=== PATIENT | male | born 1930 | race Caucasian/White ===

== ENCOUNTER 2017-05-02 08:10 | Inpatient (IN) | payer MEDICARE, BC ==
[~2017-05-02] VITALS: Ht 167.6 cm; Wt 64.1 kg
[2017-05-02] VITALS (19 sets, daily range): BP systolic 125–191; BP diastolic 62–91; PULSE 62–137; RESP 10–43; TEMP 96.6–99.3; O2SAT 74–100
[~2017-05-02 08:10] MED LIST: ALPR-138 PO; AVOD0.5C PO; BACL10TA PO; SULF1TAB47 PO; TAMS0.4C67 PO; ZYRT10TA12 PO
[2017-05-02] MEDS ORDERED: SODIUM CHLORIDE 0.9% FLUSH 10 ML FLUSH IVF PRN (08:30)
[2017-05-02] MEDS ORDERED: NALOXONE HCL 0.4 MG/ML AMP IV PUSH ONE ×2 (08:30→09:15)
--- NOTE | 2017-05-02 08:31 | PD ---
HPI Chief Complaint: OD/ Ingestion Time Seen by Provider: 08:23 Travel History International Travel<30 days: No Contact w/Intl Traveler<30days: No Traveled to known affect area: No History of Present Illness HPI 86 y/o male presents by ambulance after an overdose ingestion. He was found with a suicide note and is under Christianson act by police. He received 0.8 of Narcan by the ambulance team and now is drowsy but awakens to voice. He states he took about 20 pills but cannot tell me what pills and why he took them. History is significantly limited by patient. PFSH Past Medical History Narrative Medical on review of records Arthritis: No Asthma: No Autoimmune Disease: Yes (polymyalgiarheumatia) Blood Disorders: No Anxiety: No Depression: No Heart Rhythm Problems: No Cancer: No Cardiovascular Problems: No High Cholesterol: No Chemotherapy: No Chest Pain: No Congestive Heart Failure: No COPD: No Cerebrovascular Accident: No Diverticulitis: Yes Endocrine: No Gastrointestinal Disorders: Yes (diverticulitis 07/16 with rupture leading to rectal bleeding) GERD: Yes Glaucoma: No Genitourinary: Yes (enlarged prostate) Headaches: No Hepatitis: No Hiatal Hernia: Yes Hypertension: No Immune Disorder: No Kidney Stones: No Musculoskeletal: No Neurologic: No Psychiatric: No Reproductive: No Respiratory: No Migraines: No Myocardial Infarction: No Radiation Therapy: No Renal Failure: No Seizures: No Sickle Cell Disease: No Sleep Apnea: Yes (sleeps on side as treatment) Ulcer: No Past Surgical History Narrative Surgical on review of records Abdominal Surgery: Yes (HERNIA REPAIR) AICD: No Appendectomy: Yes (1967) Arteriovenous Shunt: No Cardiac Surgery: No Cholecystectomy: No Ear Surgery: No Endocrine Surgery: No Eye Surgery: No Genitourinary Surgery: No Insulin Pump: No Joint Replacement: Yes (left knee) Oral Surgery: No Pacemaker: No Thoracic Surgery: No Tonsillectomy: Yes Other Surgery: Yes (1995--BILATERAL HERNIA) Social History Narrative Social History on review of records Alcohol Use: Yes (one drink (wine or [place]) a day) Tobacco Use: No Substance Use: No Allergies-Medications (Allergen,Severity, Reaction): Coded Allergies: povidone-iodine (Unverified Adverse Reaction, Mild, BURNING SENSATION ON SKIN, 09/24/16) Reported Meds & Prescriptions Reported Meds & Active Scripts Active Bactrim Ds (Trimethoprim/Sulfamethoxazole) 800 Mg-160 Mg Tab 1 Tab PO BID Reported Xanax (Alprazolam) 0.25 Mg Tab 0.25 Mg PO HS Lioresal (Baclofen) 10 Mg Tab 0 PO Zyrtec (Cetirizine HCl) 10 Mg Tab 10 Mg PO DAILYPRN Flomax (Tamsulosin HCl) 0.4 Mg Cap 0.4 Mg PO DAILY Avodart (Dutasteride) 0.5 Mg Cap 0.5 Mg PO DAILY Review of Systems Except as stated in HPI: all other systems reviewed are Neg Physical Exam Narrative GENERAL: 86 y/o male who is drowsy SKIN: Focused skin assessment warm/dry. HEAD: Atraumatic. Normocephalic. EYES: pinpoint pupils. No scleral icterus. No injection or drainage. ENT: No nasal bleeding or discharge. Mucous membranes pink and moist. NECK: Trachea midline. CARDIOVASCULAR: Regular rate and rhythm. RESPIRATORY: No accessory muscle use. Clear to auscultation. Breath sounds equal bilaterally. GASTROINTESTINAL: Abdomen soft, nondistended. MUSCULOSKELETAL: No obvious deformities. NEUROLOGICAL: Drowsy but opens eyes to voice, states name, moves extremities, slow speech Data Data Last Documented VS Vital Signs Date Time Temp Pulse Resp B/P (MAP) Pulse Ox O2 Delivery O2 Flow Rate FiO2 05/02/17 09:15 65 20 149/62 (91) 100 Room Air 2.00 Orders Orders Electrocardiogram (05/02/17 08:23) Complete Blood Count With Diff (05/02/17 08:23) Comprehensive Metabolic Panel (05/02/17 08:23) Prothrombin Time / Inr (Pt) (05/02/17 08:23) Act Partial Throm Time (Ptt) (05/02/17 08:23) Urinalysis - C+S If Indicated (05/02/17 08:23) Chest, Single Ap (05/02/17 08:23) Iv Access Insert/Monitor (05/02/17 08:23) Ecg Monitoring (05/02/17 08:23) Oximetry (05/02/17 08:23) Naloxone Inj (Narcan Inj) (05/02/17 08:30) Sodium Chloride 0.9% Flush (Ns Flush) (05/02/17 08:30) Call Poison Control (05/02/17 08:23) Drug Screen, Random Urine (05/02/17 08:23) Alcohol (Ethanol) (05/02/17 08:23) Salicylates (Aspirin) (05/02/17 08:23) Tylenol (Acetaminophen) (05/02/17 08:23) Acetylcysteine Inj (Acetadote Inj) (05/02/17 08:45) Acetylcysteine Inj (Acetadote Inj) (05/02/17 09:45) Naloxone Inj (Narcan Inj) (05/02/17 08:45) Naloxone Inj (Narcan Inj) (05/02/17 09:00) Naloxone Inj (Narcan Inj) (05/02/17 09:00) Naloxone Inj (Narcan Inj) (05/02/17 09:15) Blood Culture (05/02/17 09:41) Ceftriaxone Inj (Rocephin Inj) (05/02/17 09:45) Azithromycin Inj (Zithromax Inj) (05/02/17 09:45) Metronidazole 500 Mg Inj (Flagyl 500 Mg (05/02/17 09:45) Urine Culture (05/02/17 08:31) Admit Order (Ed Use Only) (05/02/17 10:03) ^ Sitter (05/02/17 10:03) Labs Laboratory Tests Test 05/02/17 08:30 05/02/17 08:31 White Blood Count 7.8 TH/MM3 Red Blood Count 4.68 MIL/MM3 Hemoglobin 14.3 GM/DL Hematocrit 42.6 % Mean Corpuscular Volume 91.0 FL Mean Corpuscular Hemoglobin 30.5 PG Mean Corpuscular Hemoglobin Concent 33.5 % Red Cell Distribution Width 13.1 % Platelet Count 325 TH/MM3 Mean Platelet Volume 7.0 FL Neutrophils (%) (Auto) 58.8 % Lymphocytes (%) (Auto) 22.8 % Monocytes (%) (Auto) 12.7 % Eosinophils (%) (Auto) 4.8 % Basophils (%) (Auto) 0.9 % Neutrophils # (Auto) 4.6 TH/MM3 Lymphocytes # (Auto) 1.8 TH/MM3 Monocytes # (Auto) 1.0 TH/MM3 Eosinophils # (Auto) 0.4 TH/MM3 Basophils # (Auto) 0.1 TH/MM3 CBC Comment DIFF FINAL Differential Comment Prothrombin Time 11.9 SEC Prothromb Time International Ratio 1.2 RATIO Activated Partial Thromboplast Time 27.4 SEC Blood Urea Nitrogen 19 MG/DL Creatinine 1.30 MG/DL Random Glucose 82 MG/DL Total Protein 6.7 GM/DL Albumin 2.9 GM/DL Calcium Level 8.0 MG/DL Alkaline Phosphatase 56 U/L Aspartate Amino Transf (AST/SGOT) 18 U/L Alanine Aminotransferase (ALT/SGPT) 18 U/L Total Bilirubin 0.7 MG/DL Sodium Level 139 MEQ/L Potassium Level 4.1 MEQ/L Chloride Level 105 MEQ/L Carbon Dioxide Level 24.9 MEQ/L Anion Gap 9 MEQ/L Estimat Glomerular Filtration Rate 52 ML/MIN Salicylates Level LESS THAN 1.7 MG/DL Acetaminophen Level 21.3 MCG/ML Ethyl Alcohol Level LESS THAN 3 MG/DL Urine Color YELLOW Urine Turbidity CLOUDY Urine pH 6.0 Urine Specific [place] 1.017 Urine Protein 30 mg/dL Urine Glucose (UA) NEG mg/dL Urine Ketones NEG mg/dL Urine Occult Blood SMALL Urine Nitrite POS Urine Bilirubin NEG Urine Urobilinogen LESS THAN 2.0 MG/DL Urine Leukocyte Esterase LARGE Urine RBC 20 /hpf Urine WBC 128 /hpf Urine WBC Clumps MANY Urine Bacteria MOD /hpf Microscopic Urinalysis Comment CULTURE INDICATED Urine Opiates Screen POS Urine Barbiturates Screen NEG Urine Amphetamines Screen NEG Urine Benzodiazepines Screen POS Urine Cocaine Screen NEG Urine Cannabinoids Screen NEG MDM Medical Decision Making Medical Screen Exam Complete: Yes Emergency Medical Condition: Yes Medical Record Reviewed: Yes (pmh confirmed) Interpretation(s) CBC & BMP Diagram 05/02/17 08:30 Total Protein 6.7, Albumin 2.9 L, Calcium Level 8.0 L, Alkaline Phosphatase 56, Aspartate Amino Transf (AST/SGOT) 18, Alanine Aminotransferase (ALT/SGPT) 18, Total Bilirubin 0.7 Last 24 hours Impressions Chest X-Ray 05/02/17 0823 Signed Impressions: Service Date/Time: Tuesday, May 02, 2017 09:00 - CONCLUSION: Airspace disease left base, probably inflammatory. Cam Poe MD FACR Differential Diagnosis overdose, co-ingestion, electrolyte abnormality.... Narrative Course will check labs, imaging and dose with additional 0.4mg of narcan and continue to closely monitor, Patient will prophylactically be given the first 2 doses of IV Mucomyst while awaiting Tylenol level. Given level of drowsiness and likely amount of ingestion Will also initiate Narcan drip. Patient was given an additional 0.8 of Narcan when he started to become less responsive and afterwards he was more awake and appropriate. Called pharmacy to help expedite Narcan drip. Chest x-ray reviewed with possible infiltrate that could be from aspiration. Was given Flagyl, Rocephin, azithromycin Dr. Forte who is patient's primary care physician arrived in the emergency department and was updated. He briefly saw patient and talked with family and agrees to admission with the intervention manager Patient and son updated at bedside. They agree to ICU admission with close monitoring. Critical Care Narrative Aggregate critical care time was 50 minutes. Time to perform other separately billable procedures was not included in the critical care time. My time did not include minutes spent treating any other patients simultaneously or on activities that did not directly contribute to the patient's treatment. The services I provided to this patient were to treat and/or prevent clinically significant deterioration that could result in: Respiratory failure, I provided critical care services requiring my management, as noted below: Chart data review, documentation time, medication orders and management, vital sign assessments/reviewing monitor data, ordering and reviewing lab tests, ordering and interpreting/reviewing x-rays and diagnostic studies, care of the patient and discussion of the patient with the admitting physicians. Physician Communication Physician Communication dr machado agrees to admit Diagnosis Primary Impression: Suicidal overdose Qualified Codes: T50.902A - Poisoning by unspecified drugs, medicaments and biological substances, intentional self-harm, initial encounter Additional Impression: Pneumonia Qualified Codes: J18.9 - Pneumonia, unspecified organism Admitting Information Admitting Physician Requests: Admit Ilana Mcdonnell MD May 02, 2017 08:31
[2017-05-02] MEDS ORDERED: ACETYLCYSTEINE IV SCH ×4 (08:45→09:45)
[2017-05-02] MEDS ORDERED: DEXTROSE 5% IV SCH ×4 (08:45→09:45)
[2017-05-02] MEDS ORDERED: NALOXONE INJ 4 MG in DEXTROSE 5% IN WATER INJ 246 ML IV PRN ×6 (08:45→09:00)
[2017-05-02] MEDS ORDERED: WATER IV SCH ×2 (08:45)
[2017-05-02 08:49] LABS: AUTOMATED NEUTROPHIL # 4.6 TH/MM3 (1.8-7.7); BASOPHIL # 0.1 TH/MM3 (0-0.2); BASOPHIL % 0.9 % (0.0-2.0); EOSINOPHIL # 0.4 TH/MM3 (0-0.4); EOSINOPHIL % 4.8 % (0.0-4.0); HEMATOCRIT 42.6 % (39.0-51.0); HEMOGLOBIN 14.3 GM/DL (13.0-17.0); LYMPH % 22.8 % (9.0-44.0); LYMPHOCYTE # 1.8 TH/MM3 (1.0-4.8); MEAN CORPUSCULAR HEMOGLOBIN 30.5 PG (27.0-34.0); MEAN CORPUSCULAR HGB CONC 33.5 % (32.0-36.0); MONO % 12.7 % (0.0-8.0); NEUT % 58.8 % (16.0-70.0); PLATELET COUNT 325 TH/MM3 (150-450); RED BLOOD COUNT 4.68 MIL/MM3 (4.50-5.90); RED CELL DISTRIBUTION WIDTH 13.1 % (11.6-17.2); WHITE BLOOD COUNT 7.8 TH/MM3 (4.0-11.0)
[2017-05-02 09:01] LABS: INTERNATIONAL NORMALIZED RATIO 1.2 RATIO; PROTHROMBIN TIME - PATIENT 11.9 SEC (9.8-11.6)
[2017-05-02 09:06] LABS: ALBUMIN 2.9 GM/DL (3.4-5.0); AST (GOT) 18 U/L (15-37); BICARBONATE 24.9 MEQ/L (21.0-32.0); BLOOD UREA NITROGEN 19 MG/DL (7-18); CHLORIDE 105 MEQ/L (98-107); GLOMERULAR FILTRATION RATE 52 ML/MIN (>89); GLUCOSE,RANDOM 82 MG/DL (74-106); SODIUM (NA) 139 MEQ/L (136-145)
[2017-05-02 09:15] LABS: ACETAMINOPHEN 21.3 MCG/ML (10.0-30.0); ALKALINE PHOSPHATASE 56 U/L (45-117); ALT (GPT) 18 U/L (12-78); TOTAL BILIRUBIN ADULT 0.7 MG/DL (0.2-1.0); TOTAL PROTEIN 6.7 GM/DL (6.4-8.2)
--- NOTE | 2017-05-02 09:33 | RADRPT ---
EXAM DATE/TIME: 05/02/2017 09:00 [facility] COMPARISON: No previous studies available for comparison. INDICATIONS : Unresponsive, syncope. MEDICAL HISTORY : None. SURGICAL HISTORY : None. ENCOUNTER: Initial ACUITY: 1 day PAIN SCORE: Non-responsive. LOCATION: Bilateral chest FINDINGS: Minimal airspace disease left base. Right lung is clear. The mild hilar prominence on the right pro bably aorta. No pneumothorax. No pleural effusion. Mild degenerative changes right shoulder. Old left clavicle fracture. CONCLUSION: Airspace disease left base, probably inflammatory. Cam Poe MD FACR on May 02, 2017 at 9:29 Board Certified Radiologist. This report was verified electronically.
[2017-05-02] MEDS ORDERED: cefTRIAXone INJ 1,000 MG in SODIUM CHLORIDE 0.9% INJ 100 ML IV ONE (09:45)
[2017-05-02] MEDS ORDERED: WATE IV SCH ×2 (09:45)
[2017-05-02] MEDS ORDERED: metroNIDAZOLE 500 MG INJ 100 ML IV ONE (09:45)
[2017-05-02] MEDS ORDERED: AZITHROMYCIN INJ 500 MG in SODIUM CHLOR 0.9% 250 ML INJ 250 ML IV ONE (09:45)
[2017-05-02 09:59] LABS: BACTERIA, URINE MOD /hpf; BILIRUBIN, URINE NEG (NEG); BLOOD, URINE SMALL (NEG); GLUCOSE,URINE NEG (NEG); KETONE, URINE NEG (NEG); NITRITE,URINE POS (NEG); URINE COLOR YELLOW (YELLW/STRAW); URINE LEUKOCYTE ESTERASE LARGE (NEG); WHITE BLOOD CELL CLUMPS MANY
[2017-05-02] MEDS ORDERED: SODIUM CHLORIDE 0.9% FLUSH 10 ML FLUSH IV FLUSH PRN (10:15)
[2017-05-02] MEDS ORDERED: MAGNESIUM HYDROXIDE SUSP 30 ML CUP PO PRN (10:15)
[2017-05-02] MEDS ORDERED: SENNOSIDES 8.6 MG TAB PO PRN (10:15)
[2017-05-02] MEDS ORDERED: RESP: ALBUTEROL 2.5 MG/IPRATROPIUM 0.5 MG NEB (PRN) INH (10:15)
[2017-05-02] MEDS ORDERED: CHLORHEXIDINE GLUCONATE 2 % 1 PACK (2 CLOTHS) TOP PRN (10:15)
[2017-05-02] MEDS ORDERED: MISCELLANEOUS NURSING INFORMATION XX SCH (10:15)
[2017-05-02] MEDS ORDERED: cefTRIAXone INJ 1,000 MG in SODIUM CHLORIDE 0.9% INJ 100 ML IV SCH (11:00)
[2017-05-02] MEDS ORDERED: ENOXAPARIN SODIUM 40 MG/0.4 ML SYRINGE SQ SCH (11:00)
[2017-05-02] MEDS: SODIUM CHLOR 0.9% 1000 ML INJ 1,000 ML IV SCH ×2 (11:17→12:44)
--- NOTE | 2017-05-02 11:24 | HHI.HP ---
[facility] Service Critical Care Medicine Primary Care Physician Nabil Forte MD Admission Diagnosis overdose Diagnosis: (1) Opiate overdose Diagnosis: Principal (2) Benzodiazepine overdose Diagnosis: Principal (3) Suicide attempt Diagnosis: Principal (4) Encephalopathy Diagnosis: Principal (5) UTI (urinary tract infection) Diagnosis: Principal (6) Aspiration pneumonitis Diagnosis: Principal Chief Complaint: Suicide attempt by opiate and benzodiazepine overdose Travel History International Travel<30 Days: No Contact w/Intl Traveler <30 Da: No Traveled to Known Affected Are: No History of Present Illness Patient is an 86-year-old male with past medical history diverticulitis, GERD, BPH, probable anxiety and depression who was brought into the [facility] emergency department for an intentional overdose. His found him with a suicide note and EMS was called, placed under Christianson act by police. Apparently took 20 pills of mixture of Percocet and Lortab, strength unknown and also took Xanax, he received 0.8 mg of Narcan by EMS with only transient improvement. In the emergency department urine drug screen showed positive opiates and benzodiazepines. Patient received additional dose of 1.2 mg of Narcan with only transient improvement and for this reason was started on Narcan infusion; currently at 0.2 mg/h. He was given the first 2 doses of IV Mucomyst while awaiting Tylenol level, And at this time Tylenol level is 21.3 only. I evaluated the patient in the emergency department. He is very somnolent encephalopathic opens eyes to stimulation speech very slurred. Currently he is on Narcan drip at 0.2 mg/h. UA shows evidence of UTI patient had been placed on Rocephin. Was ordered to receive Flagyl, Rocephin, azithromycin Flagyl was added by Dr. Mcdonnell. BUN creat mildly elevated, NS 1L bolus ordered Review of Systems ROS Limitations: Altered Mental Status Past Family Social History Allergies: Coded Allergies: povidone-iodine (Unverified Adverse Reaction, Mild, BURNING SENSATION ON SKIN, 09/24/16) Past Medical History Diverticulitis with rupture in 2005 Polymyalgia rheumatica Probable Depression/anxiety BPH GERD Past Surgical History Diverticular rupture in 2005 Hernia repair Appendectomy Left knee replacement Reported Medications Xanax (Alprazolam) 0.25 Mg Tab 0.25 Mg PO HS Lioresal (Baclofen) 10 Mg Tab 0 PO Zyrtec (Cetirizine HCl) 10 Mg Tab 10 Mg PO DAILYPRN Flomax (Tamsulosin HCl) 0.4 Mg Cap 0.4 Mg PO DAILY Avodart (Dutasteride) 0.5 Mg Cap 0.5 Mg PO DAILY ?Bactrim Ds (Trimethoprim/Sulfamethoxazole) 800 Mg-160 Mg Tab 1 Tab PO BID Active Ordered Medications Currently on Narcan infusion Family History Unable to obtain due to encephalopathy Social History Unable to obtain but ER records indicate no smoking Drinks 1 alcoholic beverage daily Physical Exam Vital Signs Vital Signs Date Time Temp Pulse Resp B/P (MAP) Pulse Ox O2 Delivery O2 Flow Rate FiO2 05/02/17 10:19 64 18 125/62 (83) 100 Nasal Cannula 2.00 05/02/17 09:15 65 20 149/62 (91) 100 Room Air 2.00 05/02/17 09:00 100 Nasal Cannula 2.00 05/02/17 08:50 100 05/02/17 08:26 65 10 97 Room Air 05/02/17 08:26 64 10 151/67 (95) 97 Room Air 05/02/17 08:25 65 10 98 Room Air 05/02/17 08:18 62 10 151/67 (95) 97 Physical Exam GENERAL: 86 white male, drowsy encephalopathy somnolent SKIN: warm/dry. HEAD: Atraumatic. Normocephalic. EYES: Pinpoint pupils. No injection or drainage. ENT: No nasal bleeding or discharge. Mucous membranes dry NECK: Trachea midline. CARDIOVASCULAR: Regular rate and rhythm. No murmurs. Positive peripheral cyanosis RESPIRATORY: No accessory muscle use, hypopneic. Clear to auscultation. Breath sounds equal bilaterally. GASTROINTESTINAL: Abdomen soft, nondistended. MUSCULOSKELETAL: No obvious deformities. Significant peripheral cyanosis NEUROLOGICAL: Very drowsy and somnolent with incomprehensible speech. Able to state his name only. Moves all extremities Laboratory Laboratory Tests Test 05/02/17 08:30 05/02/17 08:31 White Blood Count 7.8 Red Blood Count 4.68 Hemoglobin 14.3 Hematocrit 42.6 Mean Corpuscular Volume 91.0 Mean Corpuscular Hemoglobin 30.5 Mean Corpuscular Hemoglobin Concent 33.5 Red Cell Distribution Width 13.1 Platelet Count 325 Mean Platelet Volume 7.0 Neutrophils (%) (Auto) 58.8 Lymphocytes (%) (Auto) 22.8 Monocytes (%) (Auto) 12.7 Eosinophils (%) (Auto) 4.8 Basophils (%) (Auto) 0.9 Neutrophils # (Auto) 4.6 Lymphocytes # (Auto) 1.8 Monocytes # (Auto) 1.0 Eosinophils # (Auto) 0.4 Basophils # (Auto) 0.1 CBC Comment DIFF FINAL Differential Comment Prothrombin Time 11.9 Prothromb Time International Ratio 1.2 Activated Partial Thromboplast Time 27.4 Blood Urea Nitrogen 19 Creatinine 1.30 Random Glucose 82 Total Protein 6.7 Albumin 2.9 Calcium Level 8.0 Alkaline Phosphatase 56 Aspartate Amino Transf (AST/SGOT) 18 Alanine Aminotransferase (ALT/SGPT) 18 Total Bilirubin 0.7 Sodium Level 139 Potassium Level 4.1 Chloride Level 105 Carbon Dioxide Level 24.9 Anion Gap 9 Estimat Glomerular Filtration Rate 52 Salicylates Level LESS THAN 1.7 Acetaminophen Level 21.3 Ethyl Alcohol Level LESS THAN 3 Urine Color YELLOW Urine Turbidity CLOUDY Urine pH 6.0 Urine Specific [place] 1.017 Urine Protein 30 Urine Glucose (UA) NEG Urine Ketones NEG Urine Occult Blood SMALL Urine Nitrite POS Urine Bilirubin NEG Urine Urobilinogen LESS THAN 2.0 Urine Leukocyte Esterase LARGE Urine RBC 20 Urine WBC 128 Urine WBC Clumps MANY Urine Bacteria MOD Microscopic Urinalysis Comment CULTURE INDICATED Urine Opiates Screen POS Urine Barbiturates Screen NEG Urine Amphetamines Screen NEG Urine Benzodiazepines Screen POS Urine Cocaine Screen NEG Urine Cannabinoids Screen NEG Date/Time Source Procedure Growth Status 05/02/17 08:31 Urine Random Urine Urine Culture Pending Received Result Diagram: 05/02/1730 05/02/17 0830 Imaging Chest x-ray shows mild left lower lobe infiltrate Septic Shock Reassessment Septic shock perfusion: reassessment completed Caprini VTE Risk Assessment Caprini VTE Risk Assessment: Mod/High Risk (score >= 2) Caprini Risk Assessment Model Point Value = 1 Point Value = 2 Point Value = 3 Point Value = 5 Age 41-60 Minor surgery BMI > 25 kg/m2 Swollen legs Varicose veins or History of unexplained or recurrent spontaneous Oral contraceptives or hormone replacement Sepsis (< 1 month) Serious lung disease, including pneumonia (< 1 month) Abnormal pulmonary function Acute myocardial infarction Congestive heart failure (< 1 month) History of inflammatory bowel disease Medical patient at bed rest Age 61-74 Arthroscopic surgery Major open surgery (> 45 min) Laparoscopic surgery (> 45 min) Malignancy Confined to bed (> 72 hours) Immobilizing plaster cast Central venous access Age >= 75 History of VTE Family history of VTE Factor V Leiden Prothrombin [id number] Lupus anticoagulant Anticardiolipin antibodies Elevated serum homocysteine Heparin-induced thrombocytopenia Other congenital or acquired thrombophilia Stroke (< 1 month) Elective arthroplasty Hip, pelvis, or leg fracture Acute spinal cord injury (< 1 month) Prophylaxis Regimen Total Risk Factor Score Risk Level Prophylaxis Regimen 0-1 Low Early ambulation 2 Moderate Order ONE of the following: *Sequential Compression Device (SCD) *Heparin 5000 units SQ BID 3-4 Higher Order ONE of the following medications: *Heparin 5000 units SQ TID *Enoxaparin/Lovenox 40 mg SQ daily (WT < 150 kg, CrCl > 30 mL/min) *Enoxaparin/Lovenox 30 mg SQ daily (WT < 150 kg, CrCl > 10-29 mL/min) *Enoxaparin/Lovenox 30 mg SQ BID (WT < 150 kg, CrCl > 30 mL/min) AND/OR *Sequential Compression Device (SCD) 5 or more Highest Order ONE of the following medications: *Heparin 5000 units SQ TID (Preferred with Epidurals) *Enoxaparin/Lovenox 40 mg SQ daily (WT < 150 kg, CrCl > 30 mL/min) *Enoxaparin/Lovenox 30 mg SQ daily (WT < 150 kg, CrCl > 10-29 mL/min) *Enoxaparin/Lovenox 30 mg SQ BID (WT < 150 kg, CrCl > 30 mL/min) AND *Sequential Compression Device (SCD) Assessment and Plan Assessment and Plan NEURO: Acute encephalopathy Opiate and benzodiazepine overdose Attempted suicide -Monitor neuro status closely, continue Narcan infusion -Will avoid Romazicon at this time due to chronic benzodiazepine use, daily alcohol use -Watch for benzo, alcohol withdrawal -Supplement multivitamin thiamine -Psychiatric consulted currently under Christianson act -No indication to continue Mucomyst at this time unless Tylenol level is elevated RESP: Respiratory insufficiency Aspiration pneumonitis -Continue oxygen by nasal cannula to keep saturation more than 90% -Protecting airway at this time, watch closely -DuoNeb every 6 hours as needed -Continue Rocephin and Flagyl for aspiration and will cover UTI also CV: -Normal saline IV fluids 1L bolus and 84 ml per hour -Check lactic acid GI: -N.p.o., IV famotidine : Acute kidney insufficiency -Monitor renal function closely. Place Bowling catheter. -IV hydration as above ID: Aspiration pneumonia UTI -Follow-up on blood and urine culture, continue Rocephin and Flagyl HEME: -Monitor CBC, CMP ENDO: -Electrolyte replacement per protocol PROPH: -Bilateral lower extremity SCDs. Lovenox/Pepcid LINES: -Utilize peripheral IVs, central line if needed CC time 40 min Code Status Full Discussed Condition With Dr. Mcdonnell Problem Qualifiers (1) Opiate overdose: Qualified Codes: T40.602A - Poisoning by unspecified narcotics, intentional self-harm, initial encounter (2) Benzodiazepine overdose: Qualified Codes: T42.4X2A - Poisoning by benzodiazepines, intentional self-harm , initial encounter (3) UTI (urinary tract infection): Kaye Rodrigues MD May 02, 2017 11:24
[2017-05-02] MEDS ORDERED: SODIUM CHLOR 0.9% 1000 ML INJ 1,000 ML IV ONE (11:30)
--- NOTE | 2017-05-02 13:42 | PD.PSY.CON ---
Provisional Diagnosis Admission Date May 02, 2017 at 10:04 [place] I. Major depressive disorder, single episode, severe without psychotic features History of Present Illness Service Psychiatry Consult Requested By Dr. Restrepo Reason for Consult Attempt to suicide, overdose with opiates and benzo Primary Care Physician Nabil Forte MD Past Family Social History Coded Allergies: povidone-iodine (Unverified Adverse Reaction, Mild, BURNING SENSATION ON SKIN, 09/24/16) Active Scripts Trimethoprim/Sulfamethoxazole (Bactrim Ds) 800 Mg-160 Mg Tab, 1 TAB PO BID, #14 Prov:Juancarlos Ulrich MD 08/06/09 Reported Medications Alprazolam (Xanax) 0.25 Mg Tab, 0.25 MG PO HS 08/06/09 Baclofen (Lioresal) 10 Mg Tab, 0 PO 08/06/09 Cetirizine Hcl (Zyrtec) 10 Mg Tab, 10 MG PO DAILYPRN 08/06/09 Tamsulosin Hcl (Flomax) 0.4 Mg Cap, 0.4 MG PO DAILY 08/06/09 Dutasteride (Avodart) 0.5 Mg Cap, 0.5 MG PO DAILY 08/06/09 Current Medications Medications (Trade) Dose Ordered Sig/Horacio Route Start Time Stop Time Status Last Admin Acetylcysteine 3180 mg/Dextrose 515.9 ml @ 125 mls/hr ONCE IV 05/02/17 09:45 05/02/17 13:44 05/02/17 11:17 Naloxone HCl 4 mg/ Dextrose 250 ml @ 12.5 mls/hr TITRATE PRN IV 05/02/17 09:00 05/02/17 10:15 Ceftriaxone Sodium 1000 mg/ Sodium Chloride 100 ml @ 200 mls/hr Q24H IV 05/02/17 11:00 Sodium Chloride 1,000 ml @ 84 mls/hr [id number] IV 05/02/17 10:06 05/02/17 12:44 (NS Flush) 2 ml UNSCH PRN IV FLUSH 05/02/17 10:15 (NS Flush) 2 ml BID IV FLUSH 05/02/17 21:00 (Pepcid Inj) 20 mg Q12HR IV PUSH 05/02/17 21:00 (Duoneb Neb) 1 ampule Q2HR NEB PRN INH 05/02/17 10:15 (Lovenox Inj) 40 mg Q24H SQ 05/02/17 11:00 05/02/17 11:18 Miscellaneous Information 1 [id number] XX 05/02/17 10:15 05/02/17 10:15 (Chlorhexidine 2% Cloth) 3 pack Taper DAILY@04 TOP 05/03/17 04:00 04/29/18 03:59 (Chlorhexidine 2% Cloth) 3 pack UNSCH PRN TOP 05/02/17 10:15 (Ora-Colace) 1 tab BID PO 05/02/17 21:00 (Milk Of Magnesia Liq) 30 ml Q12H PRN PO 05/02/17 10:15 (Senokot) 17.2 mg Q12H PRN PO 05/02/17 10:15 Multivitamins 10 ml/Thiamine HCl 100 mg/Folic Acid 1 mg/Sodium Chloride 511.2 ml @ 125 mls/hr DAILY IV 05/02/17 13:00 Metronidazole 100 ml @ 100 mls/hr Q8H IV 05/02/17 18:00 Physical Exam Vital Signs Vital Signs Date Time Temp Pulse Resp B/P (MAP) Pulse Ox O2 Delivery O2 Flow Rate FiO2 05/02/17 12:34 05/02/17 10:19 64 18 100 Nasal Cannula 2.00 Lab Results Test 05/02/17 08:30 05/02/17 08:31 05/02/17 11:12 White Blood Count 7.8 TH/MM3 Red Blood Count 4.68 MIL/MM3 Hemoglobin 14.3 GM/DL Hematocrit 42.6 % Mean Corpuscular Volume 91.0 FL Mean Corpuscular Hemoglobin 30.5 PG Mean Corpuscular Hemoglobin Concent 33.5 % Red Cell Distribution Width 13.1 % Platelet Count 325 TH/MM3 Mean Platelet Volume 7.0 FL Neutrophils (%) (Auto) 58.8 % Lymphocytes (%) (Auto) 22.8 % Monocytes (%) (Auto) 12.7 % Eosinophils (%) (Auto) 4.8 % Basophils (%) (Auto) 0.9 % Neutrophils # (Auto) 4.6 TH/MM3 Lymphocytes # (Auto) 1.8 TH/MM3 Monocytes # (Auto) 1.0 TH/MM3 Eosinophils # (Auto) 0.4 TH/MM3 Basophils # (Auto) 0.1 TH/MM3 CBC Comment DIFF FINAL Differential Comment Prothrombin Time 11.9 SEC Prothromb Time International Ratio 1.2 RATIO Activated Partial Thromboplast Time 27.4 SEC Blood Urea Nitrogen 19 MG/DL Creatinine 1.30 MG/DL Random Glucose 82 MG/DL Total Protein 6.7 GM/DL Albumin 2.9 GM/DL Calcium Level 8.0 MG/DL Alkaline Phosphatase 56 U/L Aspartate Amino Transf (AST/SGOT) 18 U/L Alanine Aminotransferase (ALT/SGPT) 18 U/L Total Bilirubin 0.7 MG/DL Sodium Level 139 MEQ/L Potassium Level 4.1 MEQ/L Chloride Level 105 MEQ/L Carbon Dioxide Level 24.9 MEQ/L Anion Gap 9 MEQ/L Estimat Glomerular Filtration Rate 52 ML/MIN Salicylates Level LESS THAN 1.7 MG/DL Acetaminophen Level 21.3 MCG/ML Ethyl Alcohol Level LESS THAN 3 MG/DL Urine Color YELLOW Urine Turbidity CLOUDY Urine pH 6.0 Urine Specific [place] 1.017 Urine Protein 30 mg/dL Urine Glucose (UA) NEG mg/dL Urine Ketones NEG mg/dL Urine Occult Blood SMALL Urine Nitrite POS Urine Bilirubin NEG Urine Urobilinogen LESS THAN 2.0 MG/DL Urine Leukocyte Esterase LARGE Urine RBC 20 /hpf Urine WBC 128 /hpf Urine WBC Clumps MANY Urine Bacteria MOD /hpf Microscopic Urinalysis Comment CULTURE INDICATED Urine Opiates Screen POS Urine Barbiturates Screen NEG Urine Amphetamines Screen NEG Urine Benzodiazepines Screen POS Urine Cocaine Screen NEG Urine Cannabinoids Screen NEG Blood Gas Puncture Site RT RADIAL Blood Gas Patient Temperature 98.6 Blood Gas HCO3 23 mmol/L Blood Gas Base Excess -0.9 mmol/L Blood Gas Oxygen Saturation 92 % Arterial Blood pH 7.39 Arterial Blood Partial Pressure CO2 39 mmHg Arterial Blood Partial Pressure O2 71 mmHG Arterial Blood Oxygen Content 18.8 Vol % Arterial Blood Carboxyhemoglobin 1.3 % Arterial Blood Methemoglobin 0.6 % Blood Gas Hemoglobin 14.5 G/DL Oxygen Delivery Device NASAL CANNULA Blood Gas Liter Flow 2 L/M Date/Time Source Procedure Growth Status 05/02/17 11:38 Blood Peripheral Aerobic Blood Culture Pending Received 05/02/17 11:38 Blood Peripheral Anaerobic Blood Culture Pending Received 05/02/17 08:31 Urine Random Urine Urine Culture Pending Received Mental Status Examination Appearance: Disheveled Consciousness: Somnolent (somewhat) Orientation: Person Speech: Hesitant, Slow Language: Adequate Fund of Knowledge: Inadequate Attention and Concentration: Inadequate Memory: Impaired (Surrounding events of his overdose) Mood: Sad Affect: Sad Thought Process & Associations: Linear Thought Content: Appropriate Hallucination Type: None Delusion Type: None Suicidal Ideation: Yes Suicidal Plan: Yes Suicidal Intention: Yes Homicidal Ideation: No Homicidal Plan: No Homicidal Intention: No Insight: Poor Judgment: Poor Assessment & Plan Problem List: (1) Major depressive disorder, single episode, severe without psychotic features ICD Codes: F32.2 - Major depressive disorder, single episode, severe without psychotic features Assessment & Plan Patient is an 86-year-old man denies any past psychiatric history but as per chart carries diagnoses of depression and anxiety, no previous psychiatric hospitalizations, no previous suicide attempt or self-injurious behavior was brought in by EMS due to recent overdose in a suicide attempt along with the suicide note which patient was put under Christianson act for the same admitted to the medical floor for stabilization which psychiatry was consulted for evaluation. Patient at this time continues to endorse feeling depressed along with suicide ideation with recent attempt via overdose along with leaving suicide note. Patient will require inpatient psychiatric stabilization once medically stable. Place patient on one-to-one observation for safety. We will defer from starting any psychotropic medications this patient continues to require medical stabilization at this time. Once patient is medically cleared patient may be transferred to the inpatient psychiatry unit if bed is available. Collateral formation pending. Social work intervention for psychosocial assessment. Continue recommendations as per prior medical team. Consult appreciated. Discharge Planning Patient to be transferred to the inpatient psychiatry unit once medically stable and cleared. Erasmo Perkins MD May 02, 2017 13:42
[2017-05-02] MEDS: MULTIVITAMIN INJ 10 ML, THIAMINE INJ 100 MG, FOLIC ACID INJ 1 MG in SODIUM CHLORID 0.9%... IV SCH (15:40)
[2017-05-02] MEDS: metroNIDAZOLE 500 MG INJ 100 ML IV SCH (18:13)
[2017-05-02] MEDS: HALOPERIDOL LACTATE 5 MG/ML AMP IV PRN (18:47)
--- NOTE | 2017-05-02 19:30 | EKG ---
Date Performed: 05/02/2017 Time Performed: 08:21:27 PTAGE: 86 years EKG: Sinus rhythm WITH FIRST DEGREE AV BLOCK RIGHT BUNDLE BRANCH BLOCK LEFT ANTERIOR FASCICULAR BLOCK POSSIBLE SEPTAL MYOCARDIAL INFARCTION CONSIDER ANTEROSEPTAL TN, AGE INDETERMINATE ABNORMAL ECG PREVIOUS TRACING : 09/03/2006 12.57 DOCTOR: Donny Garibay Interpretating Date/Time 05/02/2017 19:30:02
[2017-05-02] MEDS: SODIUM CHLORIDE 0.9% FLUSH 10 ML FLUSH IV FLUSH SCH (21:00)
[2017-05-02] MEDS: FAMOTIDINE 20 MG/2 ML VIAL IV PUSH SCH (21:00)
[2017-05-02] MEDS: DOCUSATE SODIUM 50 MG/SENNA 8.6 MG TAB PO SCH (21:00)
[2017-05-03] VITALS (11 sets, daily range): BP systolic 133–173; BP diastolic 66–94; PULSE 97–137; RESP 22–42; TEMP 98.8; O2SAT 99
[2017-05-03] MEDS: metroNIDAZOLE 500 MG INJ 100 ML IV SCH ×2 (02:00→09:51)
[2017-05-03] MEDS ORDERED: CHLORHEXIDINE GLUCONATE 2 % 1 PACK (2 CLOTHS) TOP SCH (04:00)
[2017-05-03 04:12] LABS: INTERNATIONAL NORMALIZED RATIO 1.3 RATIO; PROTHROMBIN TIME - PATIENT 13.1 SEC (9.8-11.6)
[2017-05-03 04:18] LABS: ALT (GPT) 22 U/L (12-78); AST (GOT) 48 U/L (15-37); BICARBONATE 23.9 MEQ/L (21.0-32.0); BLOOD UREA NITROGEN 13 MG/DL (7-18); CALCIUM 8.3 MG/DL (8.5-10.1); CHLORIDE 105 MEQ/L (98-107); CREATININE 1.02 MG/DL (0.60-1.30); GLOMERULAR FILTRATION RATE 69 ML/MIN (>89); GLUCOSE,RANDOM 90 MG/DL (74-106); SODIUM (NA) 140 MEQ/L (136-145)
[2017-05-03 04:21] LABS: ACETAMINOPHEN LESS THAN 2.0 MCG/ML (10.0-30.0)
[2017-05-03 04:23] LABS: ALKALINE PHOSPHATASE 62 U/L (45-117); TOTAL BILIRUBIN ADULT 0.9 MG/DL (0.2-1.0); TOTAL PROTEIN 7.5 GM/DL (6.4-8.2)
[2017-05-03 04:55] LABS: AUTOMATED NEUTROPHIL # 15.5 TH/MM3 (1.8-7.7); BASOPHIL # 0.1 TH/MM3 (0-0.2); BASOPHIL % 0.5 % (0.0-2.0); EOSINOPHIL % 0.1 % (0.0-4.0); HEMATOCRIT 49.7 % (39.0-51.0); HEMOGLOBIN 16.7 GM/DL (13.0-17.0); LYMPH % 5.2 % (9.0-44.0); MEAN CELL VOLUME 92.6 FL (80.0-100.0); MEAN CORPUSCULAR HEMOGLOBIN 31.1 PG (27.0-34.0); MEAN CORPUSCULAR HGB CONC 33.6 % (32.0-36.0); MONO % 8.4 % (0.0-8.0); MONOCYTE # 1.5 TH/MM3 (0-0.9); NEUT % 85.8 % (16.0-70.0); PLATELET COUNT 381 TH/MM3 (150-450); RED BLOOD COUNT 5.37 MIL/MM3 (4.50-5.90); RED CELL DISTRIBUTION WIDTH 13.2 % (11.6-17.2); WHITE BLOOD COUNT 18.1 TH/MM3 (4.0-11.0)
[2017-05-03] MEDS: FAMOTIDINE 20 MG/2 ML VIAL IV PUSH SCH ×2 (07:47→07:51)
[2017-05-03] MEDS: HALOPERIDOL LACTATE 5 MG/ML AMP IV PRN (07:48)
[2017-05-03] MEDS: SODIUM CHLORIDE 0.9% FLUSH 10 ML FLUSH IV FLUSH SCH (07:48)
[2017-05-03] MEDS: MULTIVITAMIN INJ 10 ML, THIAMINE INJ 100 MG, FOLIC ACID INJ 1 MG in SODIUM CHLORID 0.9%... IV SCH (07:50)
[2017-05-03] MEDS: DOCUSATE SODIUM 50 MG/SENNA 8.6 MG TAB PO SCH (07:50)
[2017-05-03] MEDS ORDERED: HALOPERIDOL LACTATE 5 MG/ML AMP IV PRN (08:45)
[2017-05-03] MEDS ORDERED: cloNIDine HCL 0.3 MG/24 HR PATCH T-DERMAL SCH (09:00)
--- NOTE | 2017-05-03 10:00 | HHI.DS ---
Discharge Summary Admission Date May 02, 2017 at 10:04 Discharge Date: May 03, 2017 Admitting Diagnosis overdose (1) Opiate overdose ICD Code: T40.601A - Poisoning by unspecified narcotics, accidental ( unintentional), initial encounter Diagnosis: Principal (2) Benzodiazepine overdose ICD Code: T42.4X1A - Poisoning by benzodiazepines, accidental (unintentional), initial encounter Diagnosis: Principal (3) Suicide attempt ICD Code: T14.91XA - Suicide attempt, initial encounter Diagnosis: Principal (4) Encephalopathy ICD Code: G93.40 - Encephalopathy, unspecified Diagnosis: Principal (5) UTI (urinary tract infection) ICD Code: N39.0 - Urinary tract infection, site not specified Diagnosis: Principal (6) Aspiration pneumonitis ICD Code: J69.0 - Pneumonitis due to inhalation of food and vomit Diagnosis: Principal Procedures Bowling Catheter (removed today) Brief History - From Admission Patient is an 86-year-old male with past medical history diverticulitis, GERD, BPH, probable anxiety and depression who was brought into the [place] emergency department for an intentional overdose. His found him with a suicide note and EMS was called, placed under Christianson act by police. Apparently took 20 pills of mixture of Percocet and Lortab, strength unknown and also took Xanax, he received 0.8 mg of Narcan by EMS with only transient improvement. In the emergency department urine drug screen showed positive opiates and benzodiazepines. Patient received additional dose of 1.2 mg of Narcan with only transient improvement and for this reason was started on Narcan infusion; currently at 0.2 mg/h. He was given the first 2 doses of IV Mucomyst while awaiting Tylenol level, And at this time Tylenol level is 21.3 only. I evaluated the patient in the emergency department. He is very somnolent encephalopathic opens eyes to stimulation speech very slurred. Currently he is on Narcan drip at 0.2 mg/h. UA shows evidence of UTI patient had been placed on Rocephin. Was ordered to receive Flagyl, Rocephin, azithromycin Flagyl was added by Dr. Mcdonnell. BUN creat mildly elevated, NS 1L bolus ordered CBC/BMP: 05/03/17 0318 05/03/17 0318 Significant Findings Laboratory Tests Test 05/02/17 08:30 05/02/17 08:31 05/02/17 11:12 05/02/17 12:30 Monocytes (%) (Auto) 12.7 % (0.0-8.0) Eosinophils (%) (Auto) 4.8 % (0.0-4.0) Monocytes # (Auto) 1.0 TH/MM3 (0-0.9) Prothrombin Time 11.9 SEC (9.8-11.6) Blood Urea Nitrogen 19 MG/DL (7-18) Albumin 2.9 GM/DL (3.4-5.0) Calcium Level 8.0 MG/DL (8.5-10.1) Estimat Glomerular Filtration Rate 52 ML/MIN (>89) Salicylates Level LESS THAN 1.7 MG/DL Urine Turbidity CLOUDY (CLEAR) Urine Protein 30 mg/dL (NEG-TRACE) Urine Occult Blood SMALL (NEG) Urine Nitrite POS (NEG) Urine Leukocyte Esterase LARGE (NEG) Urine RBC 20 /hpf (0-3) Urine WBC 128 /hpf (0-5) Urine WBC Clumps MANY (NONE) Urine Bacteria MOD /hpf (NONE) Urine Opiates Screen POS (NEG) Urine Benzodiazepines Screen POS (NEG) Test 05/02/17 15:13 05/03/17 03:18 Acetaminophen Level 4.8 MCG/ML (10.0-30.0) LESS THAN 2.0 MCG/ML White Blood Count 18.1 TH/MM3 (4.0-11.0) Neutrophils (%) (Auto) 85.8 % (16.0-70.0) Lymphocytes (%) (Auto) 5.2 % (9.0-44.0) Monocytes (%) (Auto) 8.4 % (0.0-8.0) Neutrophils # (Auto) 15.5 TH/MM3 (1.8-7.7) Monocytes # (Auto) 1.5 TH/MM3 (0-0.9) Prothrombin Time 13.1 SEC (9.8-11.6) Albumin 3.0 GM/DL (3.4-5.0) Calcium Level 8.3 MG/DL (8.5-10.1) Aspartate Amino Transf (AST/SGOT) 48 U/L (15-37) Estimat Glomerular Filtration Rate 69 ML/MIN (>89) Hospital Course Mr. Henderson is an 86 year old male. He came in related to an overdose of lortab/ percocet and xanax. Lethargy was present. Reversal agents were provided. He is more alert today. No evidence of acetaminophen induced hepatitis. Acetaminophen levels are normalizing now. Medically stable and clear for discharge to psychiatric care for further evaluation and treatment, today. Pt Condition on Discharge: Stable Discharge Disposition: Disc to Psych Care Fac Discharge Time: <= 30 minutes Discharge Instructions DIET: Follow Instructions for: As Tolerated, No Restrictions Activities you can perform: Regular-No Restrictions Follow up Referrals: PCP Follow-up - 2 Weeks Continued Medications: Baclofen (Lioresal) 10 Mg Tab 0 PO Cetirizine Hcl (Zyrtec) 10 Mg Tab 10 MG PO DAILYPRN Dutasteride (Avodart) 0.5 Mg Cap 0.5 MG PO DAILY Tamsulosin Hcl (Flomax) 0.4 Mg Cap 0.4 MG PO DAILY Discontinued Medications: Alprazolam (Xanax) 0.25 Mg Tab 0.25 MG PO HS Trimethoprim/Sulfamethoxazole (Bactrim Ds) 800 Mg-160 Mg Tab 1 TAB PO BID, #14 Sean Ribeiro MD May 03, 2017 10:00
[2017-05-03] MEDS ORDERED: IPRA0.06 EACH NARE (13:40)
[2017-05-03] MEDS ORDERED: VITA250T25 PO (13:42)
[2017-05-03] MEDS ORDERED: ROPI.25 PO (13:42)
[2017-05-03] MEDS ORDERED: RAPA8CAP PO (13:42)
[2017-05-03] MEDS ORDERED: ALPR.25 PO (13:42)
[2017-05-10] MEDS ORDERED: REMOVE OLD PATCH T-DERMAL SCH (09:00)
== END 2017-05-03 10:44 | DRG 917 ==
LOC: NEPC 08:10 → NEDA 10:04 → HIMN 12:30
PROVIDERS: ADMIT Hospitalist; ATTEND Hospitalist
DX: T40.602A Poisoning by unspecified narcotics, intentional self-harm, initial encounter (principal); J69.0 Pneumonitis due to inhalation of food and vomit; G92 Toxic encephalopathy; F32.2 Major depressive disorder, single episode, severe without psychotic features; N39.0 Urinary tract infection, site not specified; T42.4X2A Poisoning by benzodiazepines, intentional self-harm, initial encounter; G47.30 Sleep apnea, unspecified; K21.9 Gastro-esophageal reflux disease without esophagitis; M35.3 Polymyalgia rheumatica; N40.0 Benign prostatic hyperplasia without lower urinary tract symptoms; N28.9 Disorder of kidney and ureter, unspecified; R47.81 Slurred speech; F41.9 Anxiety disorder, unspecified; Z96.652 Presence of left artificial knee joint
CPT/HCPCS: 36600; 71045; 80053; 80307; 81001; 82805; 83605; 85025; 85610; 85730; 86403; 87040; 87086; 87641; 93005; 96374; 96376; J0132; J0456; J0696; J1630; J1650; J2310; J3411; J7030; J7040; J7050; J7060

== ENCOUNTER 2017-05-03 10:12 | Inpatient (IN) | payer MEDICARE, BC ==
[~2017-05-03] VITALS: Ht 165.1 cm; Wt 57.9 kg
[2017-05-03 11:15] VITALS: BP 121/58; PULSE 97; RESP 16; TEMP 98.4; O2SAT 96
[2017-05-03] MEDS ORDERED: LORazepam 2 MG/ML VIAL - age > 65 yrs IM PRN (12:15)
[2017-05-03] MEDS ORDERED: MAGNESIUM HYDROXIDE SUSP 30 ML CUP PO PRN (12:15)
[2017-05-03] MEDS ORDERED: LORazepam 0.5 MG TAB age > 65 yrs PO PRN (12:15)
[2017-05-03] MEDS ORDERED: ALUMINUM/MAGNESIUM/SIMETH 30 ML CUP PO PRN (12:15)
[2017-05-03] MEDS ORDERED: ACETAMINOPHEN 325 MG TAB PO PRN (12:15)
[2017-05-03] MEDS ORDERED: IPRA0.06 EACH NARE (13:40)
[2017-05-03] MEDS ORDERED: ROPI.25 PO (13:42)
[2017-05-03] MEDS ORDERED: RAPA8CAP PO (13:42)
[2017-05-03] MEDS ORDERED: VITA250T25 PO (13:42)
[2017-05-03] MEDS ORDERED: ALPR.25 PO (13:42)
[2017-05-03] MEDS: SERTRALINE HCL 50 MG TAB PO SCH (14:00)
[2017-05-03] MEDS ORDERED: PILL SPLITTER OTHER PRN (14:15)
[2017-05-03 18:00] VITALS: BP 167/74; PULSE 105; RESP 16; TEMP 97.9; O2SAT 95
[2017-05-03] MEDS ORDERED: REMOVE OLD NICOTINE PATCH T-DERMAL SCH (21:00)
[2017-05-03] MEDS: BACLOFEN 10 MG TAB PO SCH (21:00)
[2017-05-03] MEDS ORDERED: diphenhydrAMINE HCL 50 MG CAP PO PRN (21:00)
[2017-05-03] MEDS: AZITHROMYCIN INJ 500 MG in SODIUM CHLOR 0.9% 250 ML INJ 250 ML IV SCH (22:28)
[2017-05-03] MEDS: cefTRIAXone INJ 1,000 MG in SODIUM CHLORIDE 0.9% INJ 100 ML IV SCH (22:28)
[2017-05-04 05:45] VITALS: BP 174/89; PULSE 120; RESP 20; TEMP 98.5; O2SAT 93
[2017-05-04 07:42] LABS: AUTOMATED NEUTROPHIL # 15.4 TH/MM3 (1.8-7.7); BASOPHIL # 0.1 TH/MM3 (0-0.2); BASOPHIL % 0.4 % (0.0-2.0); EOSINOPHIL % 0.1 % (0.0-4.0); HEMATOCRIT 48.1 % (39.0-51.0); HEMOGLOBIN 16.1 GM/DL (13.0-17.0); LYMPH % 6.3 % (9.0-44.0); LYMPHOCYTE # 1.1 TH/MM3 (1.0-4.8); MEAN CELL VOLUME 90.3 FL (80.0-100.0); MEAN CORPUSCULAR HEMOGLOBIN 30.3 PG (27.0-34.0); MEAN CORPUSCULAR HGB CONC 33.6 % (32.0-36.0); MEAN PLATELET VOLUME 7.3 FL (7.0-11.0); MONO % 8.1 % (0.0-8.0); MONOCYTE # 1.5 TH/MM3 (0-0.9); NEUT % 85.1 % (16.0-70.0); PLATELET COUNT 485 TH/MM3 (150-450); RED BLOOD COUNT 5.33 MIL/MM3 (4.50-5.90); RED CELL DISTRIBUTION WIDTH 13.2 % (11.6-17.2); WHITE BLOOD COUNT 18.1 TH/MM3 (4.0-11.0)
[2017-05-04 08:18] LABS: BICARBONATE 16.3 MEQ/L (21.0-32.0); BLOOD UREA NITROGEN 31 MG/DL (7-18); CHLORIDE 111 MEQ/L (98-107); CHOLESTEROL 154 MG/DL (120-200); CREATININE 1.15 MG/DL (0.60-1.30); GLOMERULAR FILTRATION RATE 60 ML/MIN (>89); GLUCOSE,RANDOM 92 MG/DL (74-106); SODIUM (NA) 146 MEQ/L (136-145); TRIGLYCERIDES 81 MG/DL (42-150)
[2017-05-04 08:20] LABS: CHOLESTEROL/ HDL RATIO 4.18 RATIO; HDL CHOLESTEROL 36.8 MG/DL (40.0-60.0); LDL CHOLESTEROL 101 MG/DL (0-99)
[2017-05-04] MEDS ORDERED: CETIRIZINE HCL 10 MG TAB PO SCH (09:00)
[2017-05-04] MEDS ORDERED: NICOTINE 21 MG/24 HR PATCH T-DERMAL SCH (09:00)
[2017-05-04] MEDS: PANTOPRAZOLE SOD 40 MG DELAYED RELEASE TAB PO SCH (09:06)
[2017-05-04] MEDS: THIAMINE HCL 100 MG TAB PO SCH (09:06)
[2017-05-04] MEDS: TAMSULOSIN HCL 0.4 MG CAP PO SCH (09:06)
[2017-05-04] MEDS: SERTRALINE HCL 50 MG TAB PO SCH (09:07)
[2017-05-04] MEDS: SODIUM CHLOR 0.9% 1000 ML INJ 1,000 ML IV SCH ×2 (10:08→21:11)
--- NOTE | 2017-05-04 10:09 | HHI.HP ---
Provisional Diagnosis Admission Date May 03, 2017 at 10:47 [place] I. Major depressive disorder Certification of Person's Competence To Provide Express and Informed Consent I have personally examined Yeyo Henderson , a person being served at [facility] [[email or web address]] on, May 04, 2017 09:56. Express and informed consent means consent voluntarily given in writing, by a competent person, after sufficient explanation and disclosure of the subject matter involved to enable the person to make a knowing and willful decision without any element of force, fraud, deceit, duress, or other form of constraint or coercion. This person is 18 years of age or older, is not now known to be incompetent to consent to treatment with a guardian advocate, and does not have a health care surrogate or proxy currently making medical treatment decisions. I have found this person to be one of the following: [] Competent to provide express and informed consent, as defined above, for voluntary admission to this facility and is competent to provide express and informed consent for treatment. He/she has the consistent capacity to make well reasoned, willful, and knowing decisions concerning his or her medical or mental health treatment. The person fully and consistently understands the purpose of the admission for examination/placement and is fully capable of personally exercising all rights assured [place]] Incompetent to provide express and informed consent to voluntary admission , and this is incompetent to provide express and informed consent to treatment. The person must be transferred to involuntary status and a petition for a guardian advocate filed with the Circuit Court. [] Refusing to provide express and informed consent to voluntary admission but is competent to provide express and informed consent for treatment. The person must be discharged or transferred to involuntary status. Form shall be completed within 24 hours of a person's arrival at the receiving facility and filed in the clinical record of each person: 1. Admitted on a voluntary basis 2. Permitted to provide express and informed consent to his/her own treatment 3. Allowed to transfer from involuntary to voluntary status 4. Prior to permitting a person to consent to his or her own treatment after having been previously found incompetent to consent to treatment. History of Present Illness Capacity: Has Capacity HPI Patient is an 86-year-old man, , domiciled with , denies any past psychiatric history but as per chart carries diagnoses of depression and anxiety, no previous psychiatric hospitalizations, no previous suicide attempt or self-injurious behavior was brought in by EMS due to recent overdose in a suicide attempt along with the suicide note which patient was put under Christianson act for the same admitted to the medical floor for stabilization which was then transferred to the inpatient psychiatry for further evaluation and management. Patient was seen for consult recently which she had reported having taken some pills but did not really stating that he took about 20. Patient stated "everything is wrong", and that he did not want his to worry about him anymore. He stated that he last reports taking the pills waking up in the hospital. He denies any previous suicide attempt but does state he expected to and was disappointed that he did not succeed. He reported that his stressors are his multiple medical conditions. Upon evaluation today patient was noted to be somewhat disoriented and alert and oriented only to person. Patient is also hearing impaired. Patient noted to make some nonsensical statements at times, denied having any suicide ideations at this time but is reporting continuing feeling depressed due to his chronic medical illnesses and distressed and depressed when his .. Past psychiatric history: Denies Substance use history: Denies Past medical history: diverticulitis, GERD, BPH Allergies: Povidone iodine Social history: Domiciled with , . Review of Systems Except as stated in HPI: all other systems reviewed are Neg Past Psych History Psychological trauma history Denies Violence risk - others (6 mos) Low Violence risk - self (6 mos) Elevated due to recent suicide attempt. Substance Abuse History Drugs/Alcohol past 12 months Denies Past Family Social History Coded Allergies: povidone-iodine (Unverified Adverse Reaction, Mild, BURNING SENSATION ON SKIN, 09/24/16) Reported Medications Alprazolam (Xanax) 0.25 Mg Tab, 0.25 MG PO HS Y for ANXIETY, TAB 0 Refills 05/03/17 Silodosin (Rapaflo) 8 Mg Cap, 8 MG PO DAILY for Manage Prostate Problems, #30 CAP 0 Refills 05/03/17 Ropinirole (Requip) 0.25 Mg Tab, 0.25 MG PO HS, #30 TAB 0 Refills 18 Thiamine (Vitamin B-1) 250 Mg Tab, 250 MG PO DAILY for Nutritional Supplement, TAB 0 Refills 05/03/17 Ipratropium Nasal (Ipratropium Nasal) 0.06% [place], 1 SPRAY EACH NARE TID, #1 BOTTLE 0 Refills 05/03/17 Baclofen (Lioresal) 10 Mg Tab, 1 TAB PO HS 08/06/09 Discontinued Reported Medications Alprazolam (Xanax) 0.25 Mg Tab, 0.25 MG PO HS 08/06/09 Tamsulosin Hcl (Flomax) 0.4 Mg Cap, 0.4 MG PO DAILY 08/06/09 Dutasteride (Avodart) 0.5 Mg Cap, 0.5 MG PO DAILY 08/06/09 Discontinued Scripts Trimethoprim/Sulfamethoxazole (Bactrim Ds) 800 Mg-160 Mg Tab, 1 TAB PO BID, #14 Prov:Juancarlos Ulrich MD 08/06/09 Current Medications Medications (Trade) Dose Ordered Sig/Horacio Route Start Time Stop Time Status Last Admin (Ativan) 0.5 mg Q12H PRN PO 05/03/17 12:15 (Ativan Inj) 0.5 mg Q12H PRN IM 05/03/17 12:15 (Tylenol) 650 mg Q4H PRN PO 05/03/17 12:15 (Milk Of Magnesia Liq) 30 ml DAILY PRN PO 05/03/17 12:15 (Mag-Al Plus Susp Liq) 30 ml Q6H PRN PO 05/03/17 12:15 (Lioresal) 10 mg HS PO 05/03/17 21:00 (Vitamin B1) 250 mg DAILY PO 05/04/17 09:00 05/04/17 09:06 (Benadryl) 50 mg HS PRN PO 05/03/17 21:00 (Zoloft) 25 mg DAILY PO 05/03/17 14:00 05/04/17 09:07 (Flomax) 0.4 mg DAILY PO 05/04/17 09:00 05/04/17 09:06 (ZyrTEC) 10 mg DAILY PO 05/04/17 09:00 05/04/17 09:07 (Pill Splitter) 1 ea UNSCH PRN OTHER 05/03/17 14:15 (Protonix) 40 mg DAILY PO 05/04/17 09:00 05/04/17 09:06 Azithromycin 500 mg/Sodium Chloride 250 ml @ 250 mls/hr Q24H IV 05/03/17 20:00 05/03/17 22:28 Ceftriaxone Sodium 1000 mg/ Sodium Chloride 100 ml @ 200 mls/hr Q24H IV 05/03/17 21:00 05/03/17 22:28 Sodium Chloride 1,000 ml @ 100 mls/hr Q10H IV 05/04/17 09:30 Social History , domiciled with . Patient's Strengths (min. 2) Verbal and communicative Physical Exam Patient lying in hospital bed noted to have no range of movement of the lower extremities, appearing atrophy, not noted to be in acute distress, no tremor or EPS, no psychomotor agitation or retardation. Vital Signs Vital Signs Date Time Temp Pulse Resp B/P (MAP) Pulse Ox O2 Delivery O2 Flow Rate FiO2 05/04/17 05:45 98.5 120 20 174/89 (117) 93 Lab Results Labs reviewed Test 05/04/17 06:44 White Blood Count 18.1 TH/MM3 Red Blood Count 5.33 MIL/MM3 Hemoglobin 16.1 GM/DL Hematocrit 48.1 % Mean Corpuscular Volume 90.3 FL Mean Corpuscular Hemoglobin 30.3 PG Mean Corpuscular Hemoglobin Concent 33.6 % Red Cell Distribution Width 13.2 % Platelet Count 485 TH/MM3 Mean Platelet Volume 7.3 FL Neutrophils (%) (Auto) 85.1 % Lymphocytes (%) (Auto) 6.3 % Monocytes (%) (Auto) 8.1 % Eosinophils (%) (Auto) 0.1 % Basophils (%) (Auto) 0.4 % Neutrophils # (Auto) 15.4 TH/MM3 Lymphocytes # (Auto) 1.1 TH/MM3 Monocytes # (Auto) 1.5 TH/MM3 Eosinophils # (Auto) 0.0 TH/MM3 Basophils # (Auto) 0.1 TH/MM3 CBC Comment DIFF FINAL Differential Comment Blood Urea Nitrogen 31 MG/DL Creatinine 1.15 MG/DL Random Glucose 92 MG/DL Calcium Level 9.0 MG/DL Sodium Level 146 MEQ/L Potassium Level 4.0 MEQ/L Chloride Level 111 MEQ/L Carbon Dioxide Level 16.3 MEQ/L Anion Gap 19 MEQ/L Estimat Glomerular Filtration Rate 60 ML/MIN Triglycerides Level 81 MG/DL Cholesterol Level 154 MG/DL LDL Cholesterol 101 MG/DL HDL Cholesterol 36.8 MG/DL Cholesterol/HDL Ratio 4.18 RATIO Mental Status Examination Appearance: Disheveled Consciousness: Alert Orientation: Person Speech: Slow, Other (Low volume) Language: Adequate Fund of Knowledge: Inadequate Attention and Concentration: Adequate Memory: Impaired Mood: Sad Affect: Sad Thought Process & Associations: Other ([place]) Thought Content: Appropriate Hallucination Type: None Delusion Type: None Suicidal Ideation: Yes (Denies today) Suicidal Plan: No Suicidal Intention: No Homicidal Ideation: No Homicidal Plan: No Homicidal Intention: No Insight: Poor Judgment: Poor Assessment & Plan Problem List: (1) Major depressive disorder, single episode, severe without psychotic features ICD Codes: F32.2 - Major depressive disorder, single episode, severe without psychotic features Assessment & Plan Estimated LOS: 3-5 days. Patient is a 78-year-old man with a previous history of depression and anxiety, no prior hospitalizations, suicide attempt or self injurious behavior was admitted under [facility] after suicide attempt via overdose and leaving a suicide note patient at this time requires inpatient psychiatric hospitalization for stabilization. Patient at this time continues to endorse feeling depressed along with recent suicide ideation and attempt via overdose along with leaving suicide note. Patient to continue sertraline 25 mg p.o. daily for depression, petition for involuntary hospitalization completed, second opinion requested. Collateral information pending from , continue recommendations as per primary medical team, hospitalist input appreciated. Discharge planning in progress. Discharge Planning To be determined Erasmo Perkins MD May 04, 2017 10:09
--- NOTE | 2017-05-04 10:58 | MB ---
cc: Nabil Forte MD DATE: 05/04/2017 REASON FOR CONSULTATION: Assistance with medical management including aspiration pneumonia/pneumonitis, benign prostatic hypertrophy with lower urinary tract symptoms, gastroesophageal reflux disease. HISTORY OF PRESENT ILLNESS: This 86-year-old white male well known to the undersigned physician took an overdose of hydrocodone/acetaminophen and alprazolam at home. He was found minimally responsive, was transferred to a facility for further evaluation and treatment. He was admitted to the intensive care unit and was treated with reversal agents. The patient became more awake and was transferred to this unit for psychiatric care. The patient did have an elevated white blood cell count and x-ray revealed a left lower lobe infiltrate. It was felt the patient may have aspirated. He was on antibiotics intravenously in the emergency department and in ICU. The patient is not coughing. He has been afebrile. He has an elevated white blood cell count, which has persisted. He also has a history of benign prostatic hypertrophy. He has bladder cancer, which was recently treated with a TURBT. He had a recurrence, which was subsequently resected. His last cystoscopy revealed no evidence of any recurrent disease. The patient is incontinent of urine at this time. His urinalysis done in the emergency department was significant for a large amount of leukocyte esterase, 128 WBCs, 20 RBCs, many white blood cell clumps and moderate bacteria. However, the urine culture revealed 50-100,000 colonies of mixed gram-positive tennille. The patient at the current time is confused and cannot provide any history. The nurse reports that he was restless overnight. His heart rate was up. He does have an order for some Ativan to receive as needed, but he has not tried to get out of bed. He is trying to answer questions, but his confusion is making it more difficult. The nurses report that when he was admitted to this unit yesterday, he was unable to speak any intelligible words. Today his words are better. The patient does have a history of gastroesophageal reflux disease, which causes esophageal spasms. As a baseline he takes Baclofen 10 mg at bedtime and famotidine. He has been using these medications for years and as long as he adheres to his dietary restrictions he has been asymptomatic. He also has a history of allergic rhinitis and chronic gustatory rhinitis. He has a prescription normally for Ipratropium bromide nasal spray, but this is on hold at this time. The patient was having difficulty swallowing his pills. He did better when they were given in applesauce. He seems to be having difficulty with swallowing solid foods. At this time, a speech therapy evaluation for dysphagia has been ordered and is pending. PAST MEDICAL HISTORY: Significant for Gilbert's disease, which causes recurrent elevations in the total bilirubin. He had a history of polymyalgia rheumatica, which has since resolved. He has history of hemorrhoids. He does have sleep apnea, but he is not currently using his CPAP. He has history of kidney stones in 2000. He has GERD with hiatal hernia and he has an esophageal diverticulum, generalized osteoarthritis, diverticulosis with a history of a diverticular hemorrhage years ago. He has a history of colonic polyps. He has had multiple esophageal strictures, which required dilation. He does have benign prostatic hypertrophy with lower urinary tract symptoms. He has had elevated PSA in the past, but biopsies have been benign. He has gustatory rhinitis, allergic rhinitis, history of melanoma of the skin, history of basal cell and squamous cell carcinomas of the skin. He has history of bladder cancer, which was diagnosed in 2014. He underwent TURBT and then BCG treatments. He had a recurrence for which he underwent repeat TURBT and subsequent BCG. The last cystoscopy done at the [facility] within the last few months revealed no evidence of any recurrent disease. He has dry eye syndrome and periodic limb movement disorder during sleep, which is being treated with medication. MEDICATIONS: His usual home medications: Alprazolam 0.25 mg 1 tablet three times a day as needed for anxiety, baclofen 10 mg at bedtime as needed, Tylenol Extra Strength 500 mg 1-2 tablets three times a day as needed for arthritic pain, ropinirole 0.25 mg 1 tablet at bedtime, ipratropium bromide nasal spray 0.06% 2 sprays in each nostril three times a day as needed for rhinitis, Restasis eyedrops 1 drop into each eye twice a day, Voltaren gel 1% 4 grams to the affected joints three times a day, Rapaflo 8 mg 1 tablet daily and famotidine 40 mg daily. His current medications here in the hospital: Thiamine 250 mg daily, tamsulosin 0.4 mg daily, Zyrtec 10 mg daily, pantoprazole 40 mg daily, baclofen 10 mg at bedtime, Benadryl 50 mg at bedtime as needed for insomnia, ceftriaxone 1000 mg IV daily, azithromycin 500 mg IV daily, sertraline 25 mg daily, lorazepam 0.5 mg twice daily as needed for anxiety, milk of magnesia p.r.n., Tylenol 650 mg every 4 hours as needed for mild pain. ALLERGIES: IODINE AND NEOSPORIN, WHICH CAUSES A RASH AND CIPRO, WHICH CAUSES LIGAMENT PAIN. PAST SURGICAL HISTORY: Status post appendectomy, status post herniorrhaphy x 4, status post left total knee replacement in 2006, status post TURP in 2009. He has had melanoma of the cheek removed. He is status post left shoulder arthroscopic surgery and right shoulder arthroscopic surgery, cataract removal with lens implant on the left and TURBT in 2015 and again in 2017, for bladder cancer. FAMILY HISTORY: Noncontributory. SOCIAL HISTORY: He is . He is retired. He lives with his . He does not smoke. He did drink alcohol in the past, but has not done so in several years. REVIEW OF SYSTEMS: At the current time, the patient is confused. He is having difficulty swallowing. There appears to be no lateralizing deficits. He has been afebrile. Remainder of the review of systems is unobtainable due to the patient's confusion. PHYSICAL EXAMINATION: VITAL SIGNS: The patient's current blood pressure was 174/89 with a heart rate of 120, respirations are 20, temperature 98.5 degrees Fahrenheit, oxygen saturations are 93 percent. GENERAL: This is a frail, elderly white male sitting up in bed, restless, but awake and confused. HEENT: Pupils are equal, round and reactive to light. Extraocular muscles intact. Sclerae are anicteric. Mucous membranes are moist. Dentition is good. NECK: Supple without lymphadenopathy, JVD, bruits or thyromegaly. CARDIOVASCULAR: Show Regular rate and rhythm without murmurs, rubs or gallops. LUNGS: Reveal some fine rales in the left base, but no wheezes or rhonchi. Air exchange is good. ABDOMEN: Soft, nontender, nondistended with bowel sounds present. No mass palpable. No hepatosplenomegaly. GENITOURINARY AND RECTAL: Deferred. LOWER EXTREMITIES: Reveal no edema, no calf tenderness. No Homans sign. 2+ pulses. SKIN: Warm and dry. NEUROLOGIC: The patient is awake and alert, but confused. He is speaking, but speech is somewhat garbled, but there are no lateralizing deficits. Cranial nerves are intact. The patient is oriented to person only. He is restless, but no agitation or aggression at this point. Further mental status is difficult to assess due to severe confusion. LABORATORY DATA: White blood cell count was 18.1, hemoglobin 16.1, hematocrit 48.1, platelet count 485,000. Differential shows 85.1 neutrophils, 6.3 lymphocytes, 8.1 monocytes. Basic metabolic profile which revealed a sodium 146, potassium 4.0, chloride 110, bicarbonate 16.3, BUN 31, creatinine 1.15, glucose 92. The patient's lipids revealed total cholesterol of 154 with HDL 36.8, LDL 101, triglycerides 81. Hemoglobin A1c is pending. The patient still has blood cultures pending from the initial admission. ASSESSMENT AND PLAN: 1. This 86-year-old white male is status post overdose with benzodiazepines and narcotic analgesics. At this time, he is awake, but he is very confused, which is likely a combination of effects of the medication and acute delirium. Reviewing the chart from his ICU stay, it appears that his acetaminophen levels had returned to normal. He had no evidence of any hepatic damage. At this point, we will need to monitor LFTs for the next week or so. I will defer any treatment from a psychiatric standpoint to Psychiatry. 2. Possible left lower lobe infiltrate/possible aspiration pneumonia. The patient has an elevated white blood cell count. We will place him on IV azithromycin and IV ceftriaxone. Clinically, he is not wheezing or having any significant congestion. We will need to monitor white blood cell count and the patient's response to the intervention. His oxygen saturations have been fine. We will monitor vital signs which at this point are abnormal due to his restlessness and agitation. 3. History of gastroesophageal reflux disease and esophageal spasm. The patient is currently on pantoprazole. We will continue with this medication and the baclofen at bedtime. 4. History of benign prostatic hypertrophy with lower urinary tract symptoms. The patient normally takes Rapaflo but he has been changed to tamsulosin due to the hospital formulary. We will discontinue his Zyrtec that was ordered for his allergies as the combination of Zyrtec and p.r.n. Benadryl for insomnia can cause significant urinary retention in individuals with BPH. 5. History of allergic rhinitis. The patient is not symptomatic at this time. We will hold off on the Zyrtec. 6. Of note, the patient is up-to-date with his pneumococcal vaccination, which was performed on 01/12/2008 and his influenza vaccination was performed on 11/27/2016. He does not need any of these immunizations repeated. 7. Metabolic acidosis. The patient appears to be clinically mildly dehydrated. He has got metabolic acidosis and elevated sodium level and BUN and creatinine are higher than baseline. We will provide IV fluids and monitor his renal function and electrolytes closely. Thank you for this consultation. I will follow this patient with you. Nabil Forte MD JRM/TL , 09:49 AM , 10:57 AM
[2017-05-04 11:44] LABS: HEMOGLOBIN A1C 5.6 % (4.3-6.0)
[2017-05-04 18:21] VITALS: BP 176/90; PULSE 116; RESP 16; TEMP 98.6; O2SAT 95
[2017-05-04] MEDS: BACLOFEN 10 MG TAB PO SCH (20:28)
[2017-05-04] MEDS: cefTRIAXone INJ 1,000 MG in SODIUM CHLORIDE 0.9% INJ 100 ML IV SCH (21:14)
[2017-05-04] MEDS: AZITHROMYCIN INJ 500 MG in SODIUM CHLOR 0.9% 250 ML INJ 250 ML IV SCH (21:30)
[2017-05-05 05:25] VITALS: BP 177/79; PULSE 93; RESP 17; TEMP 97.7; O2SAT 96
[2017-05-05] MEDS: SODIUM CHLOR 0.9% 1000 ML INJ 1,000 ML IV SCH (05:30)
[2017-05-05] MEDS: METOPROLOL TARTRATE 25 MG TAB PO SCH ×3 (08:33→22:00)
[2017-05-05] MEDS: THIAMINE HCL 100 MG TAB PO SCH (08:34)
[2017-05-05] MEDS: TAMSULOSIN HCL 0.4 MG CAP PO SCH (08:34)
[2017-05-05] MEDS: SERTRALINE HCL 50 MG TAB PO SCH (08:34)
[2017-05-05] MEDS: PANTOPRAZOLE SOD 40 MG DELAYED RELEASE TAB PO SCH (08:34)
[2017-05-05 08:56] LABS: AUTOMATED NEUTROPHIL # 12.9 TH/MM3 (1.8-7.7); BASOPHIL % 0.3 % (0.0-2.0); EOSINOPHIL % 0.1 % (0.0-4.0); HEMATOCRIT 45.5 % (39.0-51.0); HEMOGLOBIN 15.3 GM/DL (13.0-17.0); LYMPH % 8.5 % (9.0-44.0); LYMPHOCYTE # 1.3 TH/MM3 (1.0-4.8); MEAN CELL VOLUME 90.7 FL (80.0-100.0); MEAN CORPUSCULAR HEMOGLOBIN 30.5 PG (27.0-34.0); MEAN CORPUSCULAR HGB CONC 33.6 % (32.0-36.0); MONO % 9.1 % (0.0-8.0); MONOCYTE # 1.4 TH/MM3 (0-0.9); PLATELET COUNT 403 TH/MM3 (150-450); RED BLOOD COUNT 5.02 MIL/MM3 (4.50-5.90); RED CELL DISTRIBUTION WIDTH 13.5 % (11.6-17.2); WHITE BLOOD COUNT 15.7 TH/MM3 (4.0-11.0)
[2017-05-05 09:20] LABS: ALBUMIN 3.1 GM/DL (3.4-5.0); ALKALINE PHOSPHATASE 62 U/L (45-117); ALT (GPT) 52 U/L (12-78); AST (GOT) 98 U/L (15-37); BICARBONATE 22.6 MEQ/L (21.0-32.0); BLOOD UREA NITROGEN 25 MG/DL (7-18); CALCIUM 8.3 MG/DL (8.5-10.1); CHLORIDE 116 MEQ/L (98-107); CREATININE 0.82 MG/DL (0.60-1.30); GLOMERULAR FILTRATION RATE 89 ML/MIN (>89); GLUCOSE,RANDOM 89 MG/DL (74-106); SODIUM (NA) 151 MEQ/L (136-145); TOTAL BILIRUBIN ADULT 0.7 MG/DL (0.2-1.0); TOTAL PROTEIN 7.1 GM/DL (6.4-8.2)
--- NOTE | 2017-05-05 11:58 | PD.PSY.CON ---
Provisional Diagnosis Admission Date May 03, 2017 at 10:47 [place]. Major depressive disorder History of Present Illness Service Psychiatry Consult Requested By Psychiatry Reason for Consult Second opinion Primary Care Physician Nabil Forte MD HPI Patient is an 86-year-old man, , domiciled with , denies any past psychiatric history but as per chart carries diagnoses of depression and anxiety, no previous psychiatric hospitalizations, no previous suicide attempt or self-injurious behavior was brought in by EMS due to recent overdose in a suicide attempt along with the suicide note which patient was put under Christianson act for the same admitted to the medical floor for stabilization which was then transferred to the inpatient psychiatry for further evaluation and management. Patient was seen for consult recently which she had reported having taken some pills but did not really stating that he took about 20. Patient stated "everything is wrong", and that he did not want his to worry about him anymore. He stated that he last reports taking the pills waking up in the hospital. He denies any previous suicide attempt but does state he expected to and was disappointed that he did not succeed. He reported that his stressors are his multiple medical conditions. Upon evaluation today patient was noted to be somewhat disoriented and alert and oriented only to person. Patient is also hearing impaired. Patient noted to make some nonsensical statements at times, denied having any suicide ideations at this time but is reporting continuing feeling depressed due to his chronic medical illnesses and distressed and depressed when his . The patient was seen today for psychiatric reevaluation and also for second opinion. The patient seems to be very somnolent, poorly cooperative and resistant. Does report feeling depressed, does not want to talk about his depression at this moment. He is oriented 3, he seems to be aware that the reason of his hospitalization is a suicidal attempt. As I insist to talk to me about the source of his depression, the patient says that "too many things going wrong". I have reviewed vital signs, labs, and medical recommendations. No agitation, no aggressive behavior, no psychotic behavior reported. Review of Systems Except as stated in HPI: all other systems reviewed are Neg Past Family Social History Coded Allergies: povidone-iodine (Unverified Adverse Reaction, Mild, BURNING SENSATION ON SKIN, 09/24/16) Reported Medications Alprazolam (Xanax) 0.25 Mg Tab, 0.25 MG PO HS Y for ANXIETY, TAB 0 Refills 05/03/17 Silodosin (Rapaflo) 8 Mg Cap, 8 MG PO DAILY for Manage Prostate Problems, #30 CAP 0 Refills 05/03/17 Ropinirole (Requip) 0.25 Mg Tab, 0.25 MG PO HS, #30 TAB 0 Refills 05/03/17 Thiamine (Vitamin B-1) 250 Mg Tab, 250 MG PO DAILY for Nutritional Supplement, TAB 0 Refills 05/03/17 Ipratropium Nasal (Ipratropium Nasal) 0.06% [place], 1 SPRAY EACH NARE TID, #1 BOTTLE 0 Refills 05/03/17 Baclofen (Lioresal) 10 Mg Tab, 1 TAB PO HS 08/06/09 Discontinued Reported Medications Alprazolam (Xanax) 0.25 Mg Tab, 0.25 MG PO HS 08/06/09 Tamsulosin Hcl (Flomax) 0.4 Mg Cap, 0.4 MG PO DAILY 08/06/09 Dutasteride (Avodart) 0.5 Mg Cap, 0.5 MG PO DAILY 08/06/09 Discontinued Scripts Trimethoprim/Sulfamethoxazole (Bactrim Ds) 800 Mg-160 Mg Tab, 1 TAB PO BID, #14 Prov:Juancarlos Ulrich MD 08/06/09 Current Medications Medications (Trade) Dose Ordered Sig/Horacio Route Start Time Stop Time Status Last Admin (Ativan) 0.5 mg Q12H PRN PO 05/03/17 12:15 (Ativan Inj) 0.5 mg Q12H PRN IM 05/03/17 12:15 (Tylenol) 650 mg Q4H PRN PO 05/03/17 12:15 (Milk Of Magnesia Liq) 30 ml DAILY PRN PO 05/03/17 12:15 (Mag-Al Plus Susp Liq) 30 ml Q6H PRN PO 05/03/17 12:15 (Lioresal) 10 mg HS PO 05/03/17 21:00 (Vitamin B1) 250 mg DAILY PO 05/04/17 09:00 05/04/17 09:06 (Benadryl) 50 mg HS PRN PO 05/03/17 21:00 (Zoloft) 25 mg DAILY PO 05/03/17 14:00 05/04/17 09:07 (Flomax) 0.4 mg DAILY PO 05/04/17 09:00 05/04/17 09:06 (Pill Splitter) 1 ea UNSCH PRN OTHER 05/03/17 14:15 (Protonix) 40 mg DAILY PO 05/04/17 09:00 05/04/17 09:06 Azithromycin 500 mg/Sodium Chloride 250 ml @ 250 mls/hr Q24H IV 05/03/17 20:00 05/04/17 21:30 Ceftriaxone Sodium 1000 mg/ Sodium Chloride 100 ml @ 200 mls/hr Q24H IV 05/03/17 21:00 05/04/17 21:14 (Lopressor) 25 mg Q12HR PO 05/04/17 21:45 Potassium Chloride/Dextrose/ Sod Cl 1,000 ml @ 100 mls/hr Q10H IV 05/05/17 12:00 UNV Patient's Strengths (min. 2) Verbal and communicative Physical Exam Vital Signs Vital Signs Date Time Temp Pulse Resp B/P (MAP) Pulse Ox O2 Delivery O2 Flow Rate FiO2 05/05/17 05:25 97.7 93 17 177/79 (111) 96 I/O 05/05/17 05/05/17 05/05/17 07:59 15:59 23:59 Intake Total 772 ml Balance 772 ml Lab Results Test 05/05/17 07:20 White Blood Count 15.7 TH/MM3 Red Blood Count 5.02 MIL/MM3 Hemoglobin 15.3 GM/DL Hematocrit 45.5 % Mean Corpuscular Volume 90.7 FL Mean Corpuscular Hemoglobin 30.5 PG Mean Corpuscular Hemoglobin Concent 33.6 % Red Cell Distribution Width 13.5 % Platelet Count 403 TH/MM3 Mean Platelet Volume 7.0 FL Neutrophils (%) (Auto) 82.0 % Lymphocytes (%) (Auto) 8.5 % Monocytes (%) (Auto) 9.1 % Eosinophils (%) (Auto) 0.1 % Basophils (%) (Auto) 0.3 % Neutrophils # (Auto) 12.9 TH/MM3 Lymphocytes # (Auto) 1.3 TH/MM3 Monocytes # (Auto) 1.4 TH/MM3 Eosinophils # (Auto) 0.0 TH/MM3 Basophils # (Auto) 0.0 TH/MM3 CBC Comment DIFF FINAL Differential Comment Blood Urea Nitrogen 25 MG/DL Creatinine 0.82 MG/DL Random Glucose 89 MG/DL Total Protein 7.1 GM/DL Albumin 3.1 GM/DL Calcium Level 8.3 MG/DL Alkaline Phosphatase 62 U/L Aspartate Amino Transf (AST/SGOT) 98 U/L Alanine Aminotransferase (ALT/SGPT) 52 U/L Total Bilirubin 0.7 MG/DL Sodium Level 151 MEQ/L Potassium Level 3.7 MEQ/L Chloride Level 116 MEQ/L Carbon Dioxide Level 22.6 MEQ/L Anion Gap 12 MEQ/L Estimat Glomerular Filtration Rate 89 ML/MIN Mental Status Examination Appearance: Disheveled Consciousness: Alert Orientation: Person Speech: Slow, Other (Low volume) Language: Adequate Fund of Knowledge: Inadequate Attention and Concentration: Adequate Memory: Impaired Mood: Sad Affect: Sad Thought Process & Associations: Other ([place]) Thought Content: Appropriate Hallucination Type: None Delusion Type: None Suicidal Ideation: Yes (Denies today) Suicidal Plan: No Suicidal Intention: No Homicidal Ideation: No Homicidal Plan: No Homicidal Intention: No Insight: Poor Judgment: Poor Assessment & Plan Problem List: (1) Major depressive disorder, single episode, severe without psychotic features ICD Codes: F32.2 - Major depressive disorder, single episode, severe without psychotic features Assessment & Plan: Patient shows symptomatology of depression, we will start the patient on Effexor 37.5 mg daily for depression. Brief supportive psychotherapy provided. Assessment & Plan Estimated LOS: Yao Jimenez MD May 05, 2017 11:58
[2017-05-05] MEDS: VENLAFAXINE HCL XR 37.5 MG CAP PO SCH (12:00)
[2017-05-05] MEDS: D5-1/2 NS + KCL 10 MEQ INJ 1,000 ML IV SCH (12:00)
--- NOTE | 2017-05-05 12:15 | HHI.PR ---
Subjective Remarks Still confused. NPO due to aspiration risk. BP elevated. HR lower this am. Current Medications Medications (Trade) Dose Ordered Sig/Horacio Route Start Time Stop Time Status Last Admin (Ativan) 0.5 mg Q12H PRN PO 05/03/17 12:15 (Ativan Inj) 0.5 mg Q12H PRN IM 05/03/17 12:15 (Tylenol) 650 mg Q4H PRN PO 05/03/17 12:15 (Milk Of Magnesia Liq) 30 ml DAILY PRN PO 05/03/17 12:15 (Mag-Al Plus Susp Liq) 30 ml Q6H PRN PO 05/03/17 12:15 (Lioresal) 10 mg HS PO 05/03/17 21:00 (Vitamin B1) 250 mg DAILY PO 05/04/17 09:00 05/04/17 09:06 (Benadryl) 50 mg HS PRN PO 05/03/17 21:00 (Zoloft) 25 mg DAILY PO 05/03/17 14:00 05/04/17 09:07 (Flomax) 0.4 mg DAILY PO 05/04/17 09:00 05/04/17 09:06 (Pill Splitter) 1 ea UNSCH PRN OTHER 05/03/17 14:15 (Protonix) 40 mg DAILY PO 05/04/17 09:00 05/04/17 09:06 Azithromycin 500 mg/Sodium Chloride 250 ml @ 250 mls/hr Q24H IV 05/03/17 20:00 05/04/17 21:30 Ceftriaxone Sodium 1000 mg/ Sodium Chloride 100 ml @ 200 mls/hr Q24H IV 05/03/17 21:00 05/04/17 21:14 (Lopressor) 25 mg Q12HR PO 05/04/17 21:45 Potassium Chloride/Dextrose/ Sod Cl 1,000 ml @ 100 mls/hr Q10H IV 05/05/17 12:00 UNV (Effexor Xr) 37.5 mg DAILY PO 05/05/17 12:00 UNV Objective Vital Signs Date Time Temp Pulse Resp B/P (MAP) Pulse Ox O2 Delivery O2 Flow Rate FiO2 05/05/17 05:25 97.7 93 17 177/79 (111) 96 05/04/17 18:21 98.6 116 16 176/90 (118) 95 I/O 05/04/17 05/04/17 05/04/17 05/05/17 05/05/17 05/05/17 07:00 15:00 23:00 07:00 15:00 23:00 Intake Total 60 ml 745 ml 772 ml Balance 60 ml 745 ml 772 ml Intake Oral 60 ml 0 ml IV Total 745 ml 772 ml # Voids 3 7 Gen: Awake and confused. restless Mouth/Throat: dry mucous membranes. Thick yellow-green sputum in posterior oropharynx Neck' Supple without LLA, JVD, bruits CV: RRR Lungs: upper airway rhonchi. No wheezes or rales Abd: Soft, NT, ND, +BS Ext: No edema Neuro: awake. Confused. Attempting to speak but unintelligible due to congeastion in throat. Will follw commands. Restless. No current agitation. No lateralizing deficits Result Diagram: 05/05/1771905/05/17719 Assessment and Plan Problem List: (1) Major depressive disorder, single episode, severe without psychotic features ICD Codes: F32.2 - Major depressive disorder, single episode, severe without psychotic features Status: Acute Plan: S/P suicide attempt by prescription drug overdose. Patient remains confused. Likely multifactorial including acute delirium, residual effects narcotics and electrolyte imbalance. Will correct electrolytes. Treatment of depression per psychiatry. (2) Hypernatremia ICD Codes: E87.0 - Hyperosmolality and hypernatremia Status: Acute Plan: I have changed IV fluids to D51/2NS. Will place NG tube to provide nutrition and hydration. Will follow sodium level. Will need to restrain patient's hands once NG tube placed (3) GERD (gastroesophageal reflux disease) ICD Codes: K21.9 - Gastro-esophageal reflux disease without esophagitis Plan: Will cont PPI (4) Aspiration pneumonitis ICD Codes: J69.0 - Pneumonitis due to inhalation of food and vomit Status: Acute Plan: Continue IV antibiotics. WBC decreasing. (5) Elevated BP without diagnosis of hypertension ICD Codes: R03.0 - Elevated blood-pressure reading, without diagnosis of hypertension Status: Acute Plan: BP elevated due to acute stress. I had order metoprolol, however, unable to give patient as could not swallow. Will begin once NG tube placed. Enalapril IV prn elevated BP. (6) BPH loc w urin obs/LUTS ICD Codes: N40.1 - Benign prostatic hyperplasia with lower urinary tract symptoms Status: Chronic Plan: Will resume Tamsulosin when patient able to swallow since it is a capsule Discussed Condition With I discussed the patient's condition and plan of care with his who was at bedside. Problem Qualifiers (1) GERD (gastroesophageal reflux disease): Qualified Codes: K21.9 - Gastro-esophageal reflux disease without esophagitis Nabil Forte MD May 05, 2017 12:15
[2017-05-05] MEDS ORDERED: ENALAPRILAT 1.25 MG/ML VIAL IV PUSH PRN (13:00)
--- NOTE | 2017-05-05 17:20 | RADRPT ---
EXAM DATE/TIME: 05/05/2017 16:23 [facility] COMPARISON: CHEST SINGLE AP, May 02, 2017, 9:00. INDICATIONS : Post NG tube placement MEDICAL HISTORY : None. SURGICAL HISTORY : None. ENCOUNTER: Initial ACUITY: 1 day PAIN SCORE: Non-responsive. LOCATION: Bilateral abd/chest FINDINGS: AP views of the chest and abdomen was obtained and demonstrates interval placement of a nasogastric t ube with the tip projected at the level of the gastroesophageal junction. The distal side-port is at the level of the distal esophagus. There is apparent scarring at the left lung base. The heart size i s at the upper limits of normal. Gas and stool is noted segmentally in the colon and there are multip le loops of nondilated air containing small bowel. There is no evidence of free air. An old left clav icular fracture is present. CONCLUSION: 1. Interval placement nasogastric tube with the tip at the level of the gastroesophageal junction. Th e tube could be advanced at least 7 cm. 2. Nonspecific, nonobstructive bowel gas pattern. Haresh Workman MD on May 05, 2017 at 17:15 Board Certified Radiologist. This report was verified electronically.
[2017-05-05 18:07] VITALS: BP 177/87; PULSE 100; RESP 17; TEMP 97.4; O2SAT 95
[2017-05-05] MEDS: BACLOFEN 10 MG TAB PO SCH (21:00)
[2017-05-05] MEDS: AZITHROMYCIN INJ 500 MG in SODIUM CHLOR 0.9% 250 ML INJ 250 ML IV SCH (21:10)
[2017-05-05] MEDS: cefTRIAXone INJ 1,000 MG in SODIUM CHLORIDE 0.9% INJ 100 ML IV SCH (22:45)
[2017-05-06] MEDS: D5-1/2 NS + KCL 10 MEQ INJ 1,000 ML IV SCH ×2 (01:36→08:00)
[2017-05-06 04:27] VITALS: BP 156/68; PULSE 76; RESP 17; TEMP 98.3; O2SAT 95
[2017-05-06 08:01] LABS: AUTOMATED NEUTROPHIL # 11.4 TH/MM3 (1.8-7.7); BASOPHIL # 0.1 TH/MM3 (0-0.2); BASOPHIL % 0.4 % (0.0-2.0); EOSINOPHIL % 0.1 % (0.0-4.0); HEMATOCRIT 43.7 % (39.0-51.0); HEMOGLOBIN 14.6 GM/DL (13.0-17.0); LYMPH % 9.7 % (9.0-44.0); LYMPHOCYTE # 1.4 TH/MM3 (1.0-4.8); MEAN CELL VOLUME 90.4 FL (80.0-100.0); MEAN CORPUSCULAR HEMOGLOBIN 30.3 PG (27.0-34.0); MEAN CORPUSCULAR HGB CONC 33.5 % (32.0-36.0); MEAN PLATELET VOLUME 6.8 FL (7.0-11.0); MONO % 12.2 % (0.0-8.0); MONOCYTE # 1.8 TH/MM3 (0-0.9); NEUT % 77.6 % (16.0-70.0); PLATELET COUNT 384 TH/MM3 (150-450); RED BLOOD COUNT 4.84 MIL/MM3 (4.50-5.90); RED CELL DISTRIBUTION WIDTH 13.6 % (11.6-17.2); WHITE BLOOD COUNT 14.7 TH/MM3 (4.0-11.0)
[2017-05-06 08:31] LABS: ALBUMIN 2.7 GM/DL (3.4-5.0); ALT (GPT) 51 U/L (12-78); AST (GOT) 66 U/L (15-37); BICARBONATE 25.2 MEQ/L (21.0-32.0); BLOOD UREA NITROGEN 23 MG/DL (7-18); CALCIUM 7.9 MG/DL (8.5-10.1); CHLORIDE 116 MEQ/L (98-107); CREATININE 0.84 MG/DL (0.60-1.30); GLOMERULAR FILTRATION RATE 86 ML/MIN (>89); GLUCOSE,RANDOM 124 MG/DL (74-106); SODIUM (NA) 150 MEQ/L (136-145)
[2017-05-06 08:34] LABS: ALKALINE PHOSPHATASE 56 U/L (45-117); TOTAL BILIRUBIN ADULT 0.5 MG/DL (0.2-1.0); TOTAL PROTEIN 6.7 GM/DL (6.4-8.2)
[2017-05-06] MEDS: VENLAFAXINE HCL XR 37.5 MG CAP PO SCH (09:02)
[2017-05-06] MEDS: THIAMINE HCL 100 MG TAB PO SCH (09:03)
[2017-05-06] MEDS: PANTOPRAZOLE SOD 40 MG DELAYED RELEASE TAB PO SCH (09:03)
[2017-05-06] MEDS: SERTRALINE HCL 50 MG TAB PO SCH (09:03)
[2017-05-06] MEDS: TAMSULOSIN HCL 0.4 MG CAP PO SCH (09:03)
[2017-05-06] MEDS: METOPROLOL TARTRATE 25 MG TAB PO SCH (09:04)
--- NOTE | 2017-05-06 12:09 | HHI.DS ---
Psychiatry Discharge Summary Inpatient Psychiatric care?: Yes Advance Directive: No Mental Health AdvanceDirective: No Health Care Proxy: Yes Admission Admission Date May 03, 2017 at 10:47 Admission Diagnosis: (1) Major depressive disorder, single episode, severe without psychotic features ICD Code: F32.2 - Major depressive disorder, single episode, severe without psychotic features Brief History Patient is an 86-year-old man, , domiciled with , denies any past psychiatric history but as per chart carries diagnoses of depression and anxiety, no previous psychiatric hospitalizations, no previous suicide attempt or self-injurious behavior was brought in by EMS due to recent overdose in a suicide attempt along with the suicide note which patient was put under Christianson act for the same admitted to the medical floor for stabilization which was then transferred to the inpatient psychiatry for further evaluation and management. Patient was seen for consult recently which she had reported having taken some pills but did not really stating that he took about 20. Patient stated "everything is wrong", and that he did not want his to worry about him anymore. He stated that he last reports taking the pills waking up in the hospital. He denies any previous suicide attempt but does state he expected to and was disappointed that he did not succeed. He reported that his stressors are his multiple medical conditions. Upon evaluation today patient was noted to be somewhat disoriented and alert and oriented only to person. Patient is also hearing impaired. Patient noted to make some nonsensical statements at times, denied having any suicide ideations at this time but is reporting continuing feeling depressed due to his chronic medical illnesses and distressed and depressed when his . The patient was seen today for psychiatric reevaluation and also for second opinion. The patient seems to be very somnolent, poorly cooperative and resistant. Does report feeling depressed, does not want to talk about his depression at this moment. He is oriented 3, he seems to be aware that the reason of his hospitalization is a suicidal attempt. As I insist to talk to me about the source of his depression, the patient says that "too many things going wrong". I have reviewed vital signs, labs, and medical recommendations. No agitation, no aggressive behavior, no psychotic behavior reported. Tobacco Use In Past 30 Days: No Tobacco Past 30 Days Alcohol Use: 4 or More Times Per Week Hospital Course Patient was admitted in the [facility] unit for psychiatric care concomitantly with medical therapy. Psychosocial and psychiatric assessment were completed. Safety measures taken. Since the patient was admitted in psychiatry at the beginning the patient was alert, oriented, even though he was a little bit lethargic. Patient was able to verbalize that he did not try to commit suicide and he was just overusing medications. He did report symptomatology of depression and he was started in Effexor 37.5 mg for his depression. As the days passed by the patient deteriorated medically becoming more and more delirious to the point that the patient today is completely incoherent, very lethargic, unable to participate in psychiatric interview he seems to be acutely ill. I met with his family, his son and his , and we all agreed that this patient the patient is not an acute danger to self medical care is the priority. Patient will be transferred to the medical floor, he will remain in Effexor 37.5 mg. Once in the medical floor please reconsult psychiatry to follow-up. Results Blood Pressure 156 / 68 Vital Signs Date Time Temp Pulse Resp B/P (MAP) Pulse Ox O2 Delivery O2 Flow Rate FiO2 05/06/17 04:27 98.3 76 17 156/68 (97) 95 Laboratory Tests Test 05/04/17 06:44 05/05/17 07:20 05/06/17 07:30 White Blood Count 18.1 TH/MM3 (4.0-11.0) 15.7 TH/MM3 (4.0-11.0) 14.7 TH/MM3 (4.0-11.0) Platelet Count 485 TH/MM3 (150-450) Neutrophils (%) (Auto) 85.1 % (16.0-70.0) 82.0 % (16.0-70.0) 77.6 % (16.0-70.0) Lymphocytes (%) (Auto) 6.3 % (9.0-44.0) 8.5 % (9.0-44.0) Monocytes (%) (Auto) 8.1 % (0.0-8.0) 9.1 % (0.0-8.0) 12.2 % (0.0-8.0) Neutrophils # (Auto) 15.4 TH/MM3 (1.8-7.7) 12.9 TH/MM3 (1.8-7.7) 11.4 TH/MM3 (1.8-7.7) Monocytes # (Auto) 1.5 TH/MM3 (0-0.9) 1.4 TH/MM3 (0-0.9) 1.8 TH/MM3 (0-0.9) Blood Urea Nitrogen 31 MG/DL (7-18) 25 MG/DL (7-18) 23 MG/DL (7-18) Sodium Level 146 MEQ/L (136-145) 151 MEQ/L (136-145) 150 MEQ/L (136-145) Chloride Level 111 MEQ/L (98-107) 116 MEQ/L (98-107) 116 MEQ/L (98-107) Carbon Dioxide Level 16.3 MEQ/L (21.0-32.0) Anion Gap 19 MEQ/L (5-15) Estimat Glomerular Filtration Rate 60 ML/MIN (>89) 86 ML/MIN (>89) LDL Cholesterol 101 MG/DL (0-99) HDL Cholesterol 36.8 MG/DL (40.0-60.0) Albumin 3.1 GM/DL (3.4-5.0) 2.7 GM/DL (3.4-5.0) Calcium Level 8.3 MG/DL (8.5-10.1) 7.9 MG/DL (8.5-10.1) Aspartate Amino Transf (AST/SGOT) 98 U/L (15-37) 66 U/L (15-37) Mean Platelet Volume 6.8 FL (7.0-11.0) Random Glucose 124 MG/DL (74-106) Laboratory Results Test 05/04/17 06:44 Cholesterol Level 154 MG/DL (120-200) HDL Cholesterol 36.8 MG/DL (40.0-60.0) Hemoglobin A1c 5.6 % (4.3-6.0) LDL Cholesterol 101 MG/DL (0-99) Triglycerides Level 81 MG/DL (42-150) Summary of Procedures None Imaging Last Impressions Abdomen X-Ray 05/05/17 0000 Signed Impressions: Service Date/Time: Friday, May 05, 2017 16:23 - CONCLUSION: 1. Interval placement nasogastric tube with the tip at the level of the gastroesophageal junction. The tube could be advanced at least 7 cm. 2. Nonspecific, nonobstructive bowel gas pattern. Haresh Workman MD Pending results at discharge: No Medications # of Antipsychotic meds at D/C: 0 Approp Antipsych med options 1 - Minimum of three failed multiple trials of monotherapy. 2 - Documented plan to taper to monotherapy due to previous use of multiple meds OR cross-taper in progress at D/C. 3 - Documentation of augmentation of Clozapine. 4 - Justification other than those listed in allowable values 1-3, document here : Discharge Discharge Date: May 06, 2017 Discharge Diagnosis: (1) Delirium due to another medical condition ICD Code: F05 - Delirium due to known physiological condition (2) Major depressive disorder, single episode, severe without psychotic features ICD Code: F32.2 - Major depressive disorder, single episode, severe without psychotic features Status: Acute Pt Condition on Discharge: Deteriorating Discharge Disposition: Disch to Another Hospital Discharge Instructions Diet Instructions: Heart Healthy Diet Activities you can perform: Non Weight Bearing Scheduled Appointment: Appointment Date: May 06, 2017 Discharge Time > 30 minutes Mental Status Examination Appearance: Disheveled Consciousness: Alert Orientation: Person Speech: Slow, Other (Low volume) Language: Adequate Fund of Knowledge: Inadequate Attention and Concentration: Adequate Memory: Impaired Mood: Sad Affect: Sad Thought Process & Associations: Other ([place]) Thought Content: Appropriate Hallucination Type: None Delusion Type: None Suicidal Ideation: Yes (Denies today) Suicidal Plan: No Suicidal Intention: No Homicidal Ideation: No Homicidal Plan: No Homicidal Intention: No Insight: Poor Judgment: Poor Discharge/Advance Care Plan Health Problems: (1) Major depressive disorder, single episode, severe without psychotic features Goals to promote your health * To prevent worsening of your condition and complications * To maintain your health at the optimal level Directions to meet your goals Take your medications as prescribed Follow your dietary instruction Follow activity as directed Keep your appointments as scheduled Take your immunizations and boosters as scheduled If your symptoms worsen call your PCP, if no PCP go to Urgent Care Center or Emergency Room For 02/09 questions related to your inpatient stay or results of tests pending at discharge, please contact Dr. Yao Vegas at Smoking is Dangerous to Your Health. Avoid second hand smoking Yao Vegas MD May 06, 2017 12:09
--- NOTE | 2017-05-06 14:53 | RADRPT ---
EXAM DATE/TIME: 05/06/2017 14:23 [facility] COMPARISON: No previous studies available for comparison. INDICATIONS : Verify NG tube placement MEDICAL HISTORY : None. SURGICAL HISTORY : None. ENCOUNTER: Subsequent ACUITY: 1 day PAIN SCORE: Non-responsive. LOCATION: Bilateral abdomen FINDINGS: A single supine view of the upper abdomen shows a nasogastric tube coiled within the mid thoracic eso phagus. Gas-filled loops of nondilated large and small bowel within the visualized portions of the up per abdomen. Mild left basilar atelectasis. Scoliotic curvature of the spine. No organomegaly observe d. CONCLUSION: NG tube coiled within the mid thoracic esophagus. Felipe Pollard Jr., MD on May 06, 2017 at 14:48 Board Certified Radiologist. This report was verified electronically.
== END 2017-05-06 17:55 | disposition short-term general hospital (02) | DRG 885 ==
LOC: H4EA 10:47
PROVIDERS: ADMIT Psychiatry & Neurology Psychiatry; ATTEND Psychiatry & Neurology Psychiatry
DX: F32.2 Major depressive disorder, single episode, severe without psychotic features (principal); J69.0 Pneumonitis due to inhalation of food and vomit; E87.2 Acidosis; E87.0 Hyperosmolality and hypernatremia; F11.921 Opioid use, unspecified with intoxication delirium; F05 Delirium due to known physiological condition; N13.8 Other obstructive and reflux uropathy; N40.1 Benign prostatic hyperplasia with lower urinary tract symptoms; K21.9 Gastro-esophageal reflux disease without esophagitis; T40.2X2A Poisoning by other opioids, intentional self-harm, initial encounter; T42.4X1A Poisoning by benzodiazepines, accidental (unintentional), initial encounter; R32 Unspecified urinary incontinence; F41.9 Anxiety disorder, unspecified; J31.0 Chronic rhinitis; E80.4 Gilbert syndrome; M35.3 Polymyalgia rheumatica; G47.30 Sleep apnea, unspecified; M15.9 Polyosteoarthritis, unspecified; H04.129 Dry eye syndrome of unspecified lacrimal gland; G47.61 Periodic limb movement disorder; K22.4 Dyskinesia of esophagus; E86.0 Dehydration; H91.90 Unspecified hearing loss, unspecified ear; Z85.51 Personal history of malignant neoplasm of bladder; Z85.820 Personal history of malignant melanoma of skin; Z96.652 Presence of left artificial knee joint
CPT/HCPCS: 74018; 80048; 80053; 80061; 83036; 85025; J0456; J0696; J3480; J7030; J7050

== ENCOUNTER 2017-05-06 17:54 | Inpatient (IN) | payer MEDICARE, BC ==
[~2017-05-06] VITALS: Ht 167.6 cm; Wt 62.5 kg
[~2017-05-06 17:54] MED LIST changes: -ALPR-138 PO; +ALPR.25 PO; -AVOD0.5C PO; +IPRA0.06 EACH NARE; +RAPA8CAP PO; +ROPI.25 PO; -SULF1TAB47 PO; -TAMS0.4C67 PO; +VITA250T25 PO; -ZYRT10TA12 PO
[2017-05-06 18:00] VITALS: BP 127/64; PULSE 79; RESP 19; TEMP 98.7; O2SAT 95
[2017-05-06] MEDS ORDERED: MAGNESIUM HYDROXIDE SUSP 30 ML CUP PO PRN (18:30)
[2017-05-06] MEDS ORDERED: SENNOSIDES 8.6 MG TAB PO PRN (18:30)
[2017-05-06] MEDS ORDERED: SODIUM CHLORIDE 0.9% FLUSH 10 ML FLUSH IV FLUSH PRN (18:30)
[2017-05-06] MEDS ORDERED: NALOXONE HCL 0.4 MG/ML AMP IV PUSH PRN (18:30)
[2017-05-06] MEDS ORDERED: PHARMACY NEEDS HT/WT ENTERED INTO MEDITECH SCH (18:45)
[2017-05-06] MEDS ORDERED: AZITHROMYCIN INJ 500 MG in SODIUM CHLOR 0.9% 250 ML INJ 250 ML IV SCH (19:00)
--- NOTE | 2017-05-06 19:38 | MH ---
cc: Nabil Forte MD DATE OF ADMISSION: 05/06/2017 ADMITTING DIAGNOSIS: Aspiration pneumonia, hypernatremia. HISTORY OF PRESENT ILLNESS: This 86-year-old white male, well known to the undersigned physician, presented to the emergency department on 05/02/2017, after taking in excess of 25 hydrocodone/acetaminophen 10/325 mg tablets and additional Xanax 0.25 mg tablets. His found him obtunded. She contacted EMS and he was transported to the facility. He was initially admitted overnight to the ICU. Chest x-ray at the time of admission revealed a left lower lobe infiltrate suspicious for aspiration pneumonia. The patient had elevated white blood cell count. He was treated aggressively in the ICU with Mucomyst for acetaminophen toxicity and he was placed on a Narcan drip. The patient stabilized; however, he remained very lethargic. He was then transferred to the medical psychiatric unit in this facility. The [facility] and the undersigned physician was consulted for medical management. The patient remained very lethargic, was unable to take in any solids or liquids. Speech therapy felt he was a high risk for aspiration. He was placed on IV fluids. His sodium level increased to 151. He did remain on IV antibiotics. The undersigned physician received a call from the [facility] earlier today stating that they felt the patient was not a candidate for any psychiatric intervention at this time and that he needed more aggressive medical intervention. The patient is now transferred to this unit under the undersigned physician's care for definitive treatment for the hypernatremia and the aspiration pneumonia. The patient did have an NG tube placed last evening; however, it apparently became kinked and would not infuse the feeding, so it was removed. It has not been replaced. At the current time, the patient is now awake and alert. He is still having some confusion, but he is oriented to person and to place. He denies any pain. He does remember attempting suicide, which he states he did so to make his 's life better because he would be out of the way. He states that he has no suicidal ideations at this time. The patient's urine output has been good. He has not had a bowel movement since admission. He has a cough and mucus in the back of his throat but denies any shortness of breath or chest pain. 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 He has a history of kidney stones in 2000. He has GERD with hiatal hernia and esophageal diverticulum. He has had recurrent esophageal spasm, which has occurred at night, but with dietary modification and medication, it has been controlled. He has a history of diverticulosis with a diverticular hemorrhage many years ago. He has generalized osteoarthritis, history of colonic polyps, history of esophageal strictures requiring dilation. He has BPH with lower urinary tract symptoms. He had history of elevated PSA in the past, but biopsies were benign. He has gustatory rhinitis, allergic rhinitis, history of melanoma of the skin, history of basal cell and squamous cell carcinomas of the skin, and he has a history of bladder cancer, which was diagnosed in 2014. He underwent TURBT and then BCG bladder infusions. The patient had a recurrence of bladder cancer in 2017 and underwent a recurrent TURBT and subsequent BCG. He had a cystoscopy done within the last 2 months at the [facility] and there was no evidence of any active cancer at that time. He has dry eye syndrome, periodic limb movement disorder during sleep, which is treated with medication. He is status post appendectomy, status post herniorrhaphy x 4, status post left total knee replacement in 2005, status post TURP in 2009. He had a melanoma of the skin removed in the past. He is status post arthroscopic surgery of the bilateral shoulders. He had cataract removed with lens implant in the left eye. He had a TURBT in 2014 and again in 2017 for bladder cancer. CURRENT MEDICATIONS: Rocephin 1 gm IV daily, azithromycin 500 mg IV daily, metoprolol 50 mg twice daily, sertraline 50 mg daily; however, he has not yet received his first dose. He is on pantoprazole 40 mg daily, lorazepam 0.5 mg twice daily as needed for anxiety or agitation, Tylenol 650 mg every 4 hours as needed for mild pain, tamsulosin 0.4 mg daily, but he has not received this due to the inability to swallow. ALLERGIES: IODINE AND NEOSPORIN, BOTH OF WHICH CAUSED A RASH, AND CIPRO, WHICH CAUSED LIGAMENT PAIN. FAMILY HISTORY: Noncontributory. SOCIAL HISTORY: He is , retired. He lives with his . He does not smoke, nor did he ever. He did drink alcohol in the past but has not done so in several years. REVIEW OF SYSTEMS: Negative except as outlined above. PHYSICAL EXAMINATION: VITAL SIGNS: His blood pressure is 127/64, heart rate 79, respirations are 18, temperature 98.7 degrees Fahrenheit, oxygen saturation on room air is 95%. GENERAL: The patient is now awake and alert and sitting up in bed in no acute distress. HEENT: Pupils equal, round, reactive to light. Extraocular movements are intact. Sclerae are anicteric. Mouth and throat reveal dry mucous membranes. No erythema or exudates. NECK: Supple without lymphadenopathy, JVD, bruits or thyromegaly. CARDIOVASCULAR: Regular rate and rhythm without murmurs, rubs or gallops. LUNGS: Reveal some left lower lobe rales, but no wheezes or rhonchi. Good air exchange. ABDOMEN: Soft, nontender, nondistended with bowel sounds present. No masses palpable. No hepatosplenomegaly. GENITOURINARY AND RECTAL: Deferred. LOWER EXTREMITIES: Reveal no appreciable edema. No calf tenderness. No Homans sign. SKIN: Warm and dry. NEUROLOGIC: The patient is now awake and alert. He is oriented to person and to place in the fact that he knows that he is in a hospital. He does recall the events of attempting suicide, but he has no recollection of the events of the last 3 days. He has no lateralizing deficits. Speech is improved. He still has mucus in the back of his throat, which causes some garbling of his speech, but he is now speaking more clearly and thought processes are better organized. Cranial nerves are intact. No lateralizing deficits. LABORATORY DATA: The patient's most recent white blood cell count was done earlier today and was 14.7, hemoglobin 14.6, hematocrit 43.7, platelet count was 384,000. His sodium this morning was 150 with potassium 3.7, chloride 116, bicarbonate 25.2, BUN 23, which was elevated, but creatinine 0.84, which was within normal limits. IMPRESSION AND PLAN: 1. This 86-year-old white male is status post a suicide attempt with overdose of narcotics and benzodiazepines. He is cognitively better today. At this point, psychiatry has signed off on the patient until he is more awake and alert. The patient's cognitive status has improved significantly, although not yet at baseline. Will provide Ativan if needed for any agitation; however, the patient seems to be calm at this point. Will resume the sertraline as previously prescribed and when patient is consistently awake and alert, will consult psychiatry again. 2. Aspiration pneumonia. The patient receiving Zithromax and Rocephin IV. Will follow white blood cell count, which has been decreasing. 3. Dysphagia. The patient had a bedside swallow evaluation by the undersigned physician and the nurse. He had coughing with thin liquids, but with nectar thick liquids and applesauce, he swallowed without difficulty. Will provide the patient with a pureed diet with nectar thick liquids. He had a nasogastric tube in place to provide supplemental free water and nutrition. Since he is now swallowing, will not replace the NG tube. 4. Hypernatremia. The patient will be encouraged to take oral free water intake. I have changed his IV fluids to D5 one-quarter normal saline. Will check electrolytes in the morning, pending results and make further recommendations. 5. History of gastroesophageal reflux disease. The patient will continue with pantoprazole at 40 mg daily. 6. History of benign prostatic hypertrophy with lower urinary tract symptoms. At this point, he needs his medications crushed, so we will hold the tamsulosin as it is a capsule and cannot be crushed. Will resume when he is able to swallow pills. 7. Deep venous thrombosis prophylaxis. The patient has been bedbound, so will provide him with Lovenox 30 mg subcutaneously daily. I have contacted the patient's by telephone and explained to her the patient's current condition, which is improved from yesterday. She expressed understanding. I have asked her to bring in the patient's hearing aids so that he can hear better, which will allow him to communicate better. She will bring them in in the morning. MD SUHAIL Seals/KIM , 06:50 PM , 07:37 PM
[2017-05-06 20:00] VITALS: BP 138/64; PULSE 77; RESP 15; TEMP 97.8; O2SAT 91
[2017-05-06] MEDS: cefTRIAXone INJ 1,000 MG in SODIUM CHLORIDE 0.9% INJ 100 ML IV SCH (20:03)
[2017-05-06] MEDS: ENOXAPARIN SODIUM 30 MG/0.3 ML SYRINGE SQ SCH (20:03)
[2017-05-06] MEDS: DEXTROSE 5%-NACL 0.225% INJ 1,000 ML IV SCH (20:04)
[2017-05-06] MEDS: SODIUM CHLORIDE 0.9% FLUSH 10 ML FLUSH IV FLUSH SCH (20:08)
[2017-05-06] MEDS: AZITHROMYCIN INJ 500 MG in SODIUM CHLOR 0.9% 250 ML INJ 250 ML IV SCH (20:16)
[2017-05-06] MEDS ORDERED: METOPROLOL TARTRATE 50 MG TAB PO SCH (21:00)
[2017-05-07] VITALS: BP 156/70; PULSE 80; RESP 15; TEMP 97.9; O2SAT 95
[2017-05-07 04:00] VITALS: O2SAT 92
[2017-05-07] MEDS: DEXTROSE 5%-NACL 0.225% INJ 1,000 ML IV SCH ×2 (04:30→15:05)
[2017-05-07 08:00] VITALS: BP 186/84; PULSE 92; RESP 17; TEMP 97.9; O2SAT 88
--- NOTE | 2017-05-07 08:56 | HHI.PR ---
Subjective Remarks Current Medications Medications (Trade) Dose Ordered Sig/Horacio Route Start Time Stop Time Status Last Admin (NS Flush) 2 ml UNSCH PRN IV FLUSH 05/06/17 18:30 (NS Flush) 2 ml BID IV FLUSH 05/06/17 21:00 05/06/17 20:08 (Lovenox Inj) 30 mg Q24H SQ 05/06/17 19:00 05/06/17 20:03 (Narcan Inj) 0.4 mg UNSCH PRN IV PUSH 05/06/17 18:30 (Milk Of Magnesia Liq) 30 ml Q12H PRN PO 05/06/17 18:30 (Senokot) 17.2 mg Q12H PRN PO 05/06/17 18:30 Dextrose/Sodium Chloride 1,000 ml @ 100 mls/hr Q10H IV 05/06/17 18:30 05/06/17 20:04 Ceftriaxone Sodium 1000 mg/ Sodium Chloride 100 ml @ 200 mls/hr Q24H IV 05/06/17 19:00 05/06/17 20:03 (Ativan Inj) 0.5 mg Q6HR PRN IV PUSH 05/06/17 18:45 (Protonix) 40 mg DAILY PO 05/07/17 09:00 Azithromycin 500 mg/Sodium Chloride 250 ml @ 250 mls/hr Q24H IV 05/06/17 20:00 05/06/17 20:16 Patient is awake and alert. He is more restless today. He is demanding to go home. Still has moist cough from throat congestion. Blood pressure elevated this morning due to restlessness. Denies any pain. Urine output has been good. Has taken in nectar thickened liquids and applesauce. Speech therapy saw patient this morning and is concerned about aspiration. Patient was made nothing by mouth until modified barium swallow can be done. Objective Vital Signs Date Time Temp Pulse Resp B/P (MAP) Pulse Ox O2 Delivery O2 Flow Rate FiO2 05/07/17 04:00 92 05/07/17 00:00 97.9 80 15 156/70 (98) 95 05/06/17 20:00 97.8 77 15 138/64 (88) 91 05/06/17 18:00 98.7 79 19 127/64 (85) 95 I/O 3/27/18 305/06/17 05/07/17 05/07/17 05/07/17 07:00 15:00 23:00 07:00 15:00 23:00 Intake Total 100 ml 250 ml Output Total 350 ml Balance 100 ml -100 ml Intake Oral 0 ml 0 ml IV Total 100 ml 250 ml Output Urine Total 350 ml # Voids 3 # Bowel Movements 0 Cardiovascular: Regular rate and rhythm Lungs: Upper airway rhonchi, fine rales left base, no wheezes Abdomen: Soft, nontender nondistended with bowel sounds present Neuro: Awake and alert. Oriented to person and place but not time. Speech is intact with some garbling due to congestion in throat. No lateralizing deficits. Cranial nerves intact. Patient has poor insight into current situation. Mood is restless/anxious. Assessment and Plan Problem List: (1) Hypernatremia ICD Codes: E87.0 - Hyperosmolality and hypernatremia Status: Acute Plan: Awaiting repeat laboratory studies. Continue with IV fluids. (2) Aspiration pneumonitis ICD Codes: J69.0 - Pneumonitis due to inhalation of food and vomit Status: Acute Plan: Patient receiving IV Rocephin and azithromycin. Follow white blood cell count. Clinically improving. (3) Major depressive disorder, single episode, severe without psychotic features ICD Codes: F32.2 - Major depressive disorder, single episode, severe without psychotic features Status: Acute Plan: patient is status post a suicide attempt. Once he is medically stable we 'll consult psychiatry for assistance with further treatment and disposition based on recent suicide attempt. (4) GERD (gastroesophageal reflux disease) ICD Codes: K21.9 - Gastro-esophageal reflux disease without esophagitis Plan: Continue PPI (5) BPH loc w urin obs/LUTS ICD Codes: N40.1 - Benign prostatic hyperplasia with lower urinary tract symptoms Status: Chronic Plan: Patient normally takes an alpha concepcion, however, these cannot be crushed so will hold until he can swallow a pill. (6) Dysphagia ICD Codes: R13.10 - Dysphagia, unspecified Status: Acute Plan: Speech therapy concerned about aspiration. Have ordered a modified barium swallow to assess if there is any aspiration. Patient has been made nothing by mouth at this time. Problem Qualifiers (1) GERD (gastroesophageal reflux disease): Qualified Codes: K21.9 - Gastro-esophageal reflux disease without esophagitis (2) Dysphagia: Qualified Codes: R13.12 - Dysphagia, oropharyngeal phase Nabil Forte MD May 07, 2017 08:56
[2017-05-07] MEDS: SODIUM CHLORIDE 0.9% FLUSH 10 ML FLUSH IV FLUSH SCH ×2 (09:00→20:18)
[2017-05-07] MEDS: PANTOPRAZOLE SOD 40 MG DELAYED RELEASE TAB PO SCH (09:00)
--- NOTE | 2017-05-07 10:23 | RADRPT ---
EXAM DATE/TIME: 05/07/2017 09:44 [facility] COMPARISON: No previous studies available for comparison. INDICATIONS : Aspiration FLUORO TIME: 0.7 minutes IMAGE COUNT: 2 CONTRAST: Dose as prescribed by speech pathologist. MEDICAL HISTORY : Gastroesophageal reflux disease. sleep apnea, prostate problems, dementia SURGICAL HISTORY : hernia repair, ENCOUNTER: Initial ACUITY: 4 - 6 days PAIN SCORE: Non-responsive. LOCATION: Bilateral neck FINDINGS: A modified barium swallow was performed with speech pathology. Patient was given a variety of liquids to swallow. There is aspiration into the upper airway on the first 2 swallows. For a full detailed report, see report by the speech pathologist. CONCLUSION: Aspiration into the upper airway. Gabe Luther MD on May 07, 2017 at 10:21 Board Certified Radiologist. This report was verified electronically.
[2017-05-07 11:09] LABS: AUTOMATED NEUTROPHIL # 12.4 TH/MM3 (1.8-7.7); BASOPHIL % 0.3 % (0.0-2.0); EOSINOPHIL # 0.1 TH/MM3 (0-0.4); EOSINOPHIL % 0.3 % (0.0-4.0); HEMATOCRIT 47.7 % (39.0-51.0); HEMOGLOBIN 15.9 GM/DL (13.0-17.0); LYMPH % 8.3 % (9.0-44.0); LYMPHOCYTE # 1.3 TH/MM3 (1.0-4.8); MEAN CELL VOLUME 90.7 FL (80.0-100.0); MEAN CORPUSCULAR HEMOGLOBIN 30.3 PG (27.0-34.0); MEAN CORPUSCULAR HGB CONC 33.4 % (32.0-36.0); MEAN PLATELET VOLUME 7.3 FL (7.0-11.0); MONO % 9.8 % (0.0-8.0); MONOCYTE # 1.5 TH/MM3 (0-0.9); NEUT % 81.3 % (16.0-70.0); PLATELET COUNT 433 TH/MM3 (150-450); RED BLOOD COUNT 5.26 MIL/MM3 (4.50-5.90); RED CELL DISTRIBUTION WIDTH 13.5 % (11.6-17.2); WHITE BLOOD COUNT 15.2 TH/MM3 (4.0-11.0)
[2017-05-07 11:56] LABS: AST (GOT) 97 U/L (15-37); BICARBONATE 24.8 MEQ/L (21.0-32.0); BLOOD UREA NITROGEN 18 MG/DL (7-18); CALCIUM 8.4 MG/DL (8.5-10.1); CHLORIDE 112 MEQ/L (98-107); CREATININE 0.78 MG/DL (0.60-1.30); GLOMERULAR FILTRATION RATE 94 ML/MIN (>89); GLUCOSE,RANDOM 120 MG/DL (74-106); SODIUM (NA) 145 MEQ/L (136-145)
[2017-05-07 11:58] LABS: ALT (GPT) 75 U/L (12-78)
[2017-05-07 11:59] LABS: ALKALINE PHOSPHATASE 65 U/L (45-117); TOTAL BILIRUBIN ADULT 1.3 MG/DL (0.2-1.0); TOTAL PROTEIN 7.4 GM/DL (6.4-8.2)
[2017-05-07 12:00] VITALS: BP 184/85; PULSE 111; RESP 17; TEMP 98.4; O2SAT 94
[2017-05-07] MEDS: RESP: SODIUM CHLORIDE 3% 4 ML NEB NEB SCH ×3 (12:00→20:23)
[2017-05-07] MEDS: ENALAPRILAT 1.25 MG/ML VIAL IV PUSH PRN ×2 (12:31→20:18)
[2017-05-07 16:00] VITALS: BP 138/82; PULSE 108; RESP 17; TEMP 100.1; O2SAT 94
[2017-05-07] MEDS: ENOXAPARIN SODIUM 30 MG/0.3 ML SYRINGE SQ SCH (17:34)
[2017-05-07] MEDS: cefTRIAXone INJ 1,000 MG in SODIUM CHLORIDE 0.9% INJ 100 ML IV SCH (17:35)
[2017-05-07] MEDS: D5-1/2 NS + KCL 30 MEQ INJ 1,000 ML IV SCH (18:18)
[2017-05-07 20:00] VITALS: BP 189/83; PULSE 98; RESP 20; TEMP 97; O2SAT 92
[2017-05-07] MEDS: AZITHROMYCIN INJ 500 MG in SODIUM CHLOR 0.9% 250 ML INJ 250 ML IV SCH (20:18)
[2017-05-08] VITALS (9 sets, daily range): BP systolic 116–190; BP diastolic 64–94; PULSE 91–149; RESP 17–22; TEMP 97.7–99.5; O2SAT 90–97
[2017-05-08] MEDS: ENALAPRILAT 1.25 MG/ML VIAL IV PUSH PRN ×2 (03:47→11:58)
[2017-05-08] MEDS: RESP: SODIUM CHLORIDE 3% 4 ML NEB NEB SCH ×3 (04:28→08:10)
[2017-05-08] MEDS: D5-1/2 NS + KCL 30 MEQ INJ 1,000 ML IV SCH ×3 (05:00→22:03)
[2017-05-08 06:16] LABS: AUTOMATED NEUTROPHIL # 12.4 TH/MM3 (1.8-7.7); BASOPHIL % 0.1 % (0.0-2.0); HEMOGLOBIN 15.7 GM/DL (13.0-17.0); LYMPH % 8.2 % (9.0-44.0); LYMPHOCYTE # 1.2 TH/MM3 (1.0-4.8); MEAN CELL VOLUME 90.2 FL (80.0-100.0); MEAN CORPUSCULAR HEMOGLOBIN 30.2 PG (27.0-34.0); MEAN CORPUSCULAR HGB CONC 33.5 % (32.0-36.0); MEAN PLATELET VOLUME 7.6 FL (7.0-11.0); MONO % 10.4 % (0.0-8.0); MONOCYTE # 1.6 TH/MM3 (0-0.9); NEUT % 81.3 % (16.0-70.0); PLATELET COUNT 387 TH/MM3 (150-450); RED BLOOD COUNT 5.21 MIL/MM3 (4.50-5.90); RED CELL DISTRIBUTION WIDTH 13.4 % (11.6-17.2); WHITE BLOOD COUNT 15.2 TH/MM3 (4.0-11.0)
[2017-05-08 06:36] LABS: CALCIUM 8.3 MG/DL (8.5-10.1); CREATININE 0.77 MG/DL (0.60-1.30)
[2017-05-08] MEDS: PANTOPRAZOLE SOD 40 MG DELAYED RELEASE TAB PO SCH (07:26)
--- NOTE | 2017-05-08 07:37 | RADRPT ---
EXAM DATE/TIME: 05/08/2017 06:13 [facility] COMPARISON: CHEST SINGLE AP, May 02, 2017, 9:00. INDICATIONS : Short of breath, congestion MEDICAL HISTORY : None. SURGICAL HISTORY : None. ENCOUNTER: Subsequent ACUITY: 4 - 6 days PAIN SCORE: Non-responsive. LOCATION: Bilateral chest FINDINGS: A single view of the chest demonstrates mild basilar atelectasis or scarring. No effusion. No pneumot horax. Heart size within normal limits. CONCLUSION: 1. Mild basal atelectasis. No effusion. No pneumothorax. Rah Swenson MD on May 08, 2017 at 7:33 Board Certified Radiologist. This report was verified electronically.
[2017-05-08] MEDS ORDERED: ENALAPRILAT 1.25 MG/ML VIAL IV PUSH ONE (08:00)
[2017-05-08] MEDS: SODIUM CHLORIDE 0.9% FLUSH 10 ML FLUSH IV FLUSH SCH ×2 (08:57→22:04)
--- NOTE | 2017-05-08 08:58 | HHI.PR ---
Subjective Remarks Patient is more confused today. Having delusions. He thought that his had overnight. Blood pressure is higher this morning. Received additional dosage of Vasotec IV. He remains nothing by mouth. Having frequent cough due to congestion in throat. Was placed on oxygen overnight. Denies pain at this time. Current Medications Medications (Trade) Dose Ordered Sig/Horacio Route Start Time Stop Time Status Last Admin (NS Flush) 2 ml UNSCH PRN IV FLUSH 05/06/17 18:30 (NS Flush) 2 ml BID IV FLUSH 05/06/17 21:00 05/06/17 20:08 (Lovenox Inj) 30 mg Q24H SQ 05/06/17 19:00 05/07/17 17:34 (Narcan Inj) 0.4 mg UNSCH PRN IV PUSH 05/06/17 18:30 (Milk Of Magnesia Liq) 30 ml Q12H PRN PO 05/06/17 18:30 (Senokot) 17.2 mg Q12H PRN PO 05/06/17 18:30 Ceftriaxone Sodium 1000 mg/ Sodium Chloride 100 ml @ 200 mls/hr Q24H IV 05/06/17 19:00 05/07/17 17:35 (Ativan Inj) 0.5 mg Q6HR PRN IV PUSH 05/06/17 18:45 (Protonix) 40 mg DAILY PO 05/07/17 09:00 Azithromycin 500 mg/Sodium Chloride 250 ml @ 250 mls/hr Q24H IV 05/06/17 20:00 05/07/17 20:18 (Sodium Chloride 3% Neb) 2 ml Q4HR NEB NEB 05/07/17 12:00 05/08/17 08:10 (Vasotec Inj) 1.25 mg Q6H PRN IV PUSH 05/07/17 12:00 05/08/17 03:47 Potassium Chloride/Dextrose/ Sod Cl 1,000 ml @ 84 mls/hr [id number] IV 05/07/17 18:00 05/07/17 18:18 Objective Vital Signs Date Time Temp Pulse Resp B/P (MAP) Pulse Ox O2 Delivery O2 Flow Rate FiO2 05/08/17 08:11 92 Nasal Cannula 4.00 05/08/17 08:00 98.1 103 17 190/81 (117) 92 05/08/17 04:59 94 22 174/80 (111) 96 05/08/17 04:00 97.7 98 20 () 94 05/08/17 00:00 98.0 91 20 179/64 (102) 94 05/07/17 20:00 97.0 98 20 189/83 (118) 92 05/07/17 16:00 100.1 108 17 138/82 (100) 94 05/07/17 12:00 98.4 111 17 184/85 (118) 94 I/O 05/07/17 05/07/17 05/07/17 05/08/17 05/08/17 05/08/17 07:00 15:00 23:00 07:00 15:00 23:00 Intake Total 250 ml 850 ml 0 ml Output Total 350 ml 500 ml 1000 ml Balance -100 ml 350 ml -1000 ml Intake Oral 0 ml 600 ml 0 ml IV Total 250 ml 250 ml Output Urine Total 350 ml 500 ml 1000 ml # Voids 3 5 # Bowel Movements 0 0 Cardiovascular: Regular rate and rhythm Lungs: Upper airway rhonchi but no wheezes or rales. Abdomen: Soft, nontender nondistended with bowel sounds present Neurologic examination: Patient arouses to voice. He is initially very anxious but calms down after reassured that his did not overnight. Orientation difficult to assess due to patient's confusion. No lateralizing deficits. Still garbled speech due to congestion in throat. Result Diagram: 05/08/17 0525 05/08/17 0525 Imaging Last 48 hours Impressions Chest X-Ray 05/08/17 0600 Signed Impressions: Service Date/Time: April 06:13 - CONCLUSION: 1. Mild basal atelectasis. No effusion. No pneumothorax. Rah Swenson MD Modified Barium Swallow 05/07/17 0000 Signed Impressions: Service Date/Time: Sunday, May 07, 2017 09:44 - CONCLUSION: Aspiration into the upper airway. Gabe Luther MD Assessment and Plan Problem List: (1) Hypernatremia ICD Codes: E87.0 - Hyperosmolality and hypernatremia Status: Acute Plan: Improved. Will follow. Continue with IV fluids. NG tube is being placed in order to provide adequate nutrition and hydration (2) Aspiration pneumonitis ICD Codes: J69.0 - Pneumonitis due to inhalation of food and vomit Status: Acute Plan: Chest x-ray did not reveal any infiltrates. Still has congestion in throat. We will be treating this with nebulizer treatments. Complete course of IV antibiotics. (3) Major depressive disorder, single episode, severe without psychotic features ICD Codes: F32.2 - Major depressive disorder, single episode, severe without psychotic features Status: Acute Plan: Patient is currently confused which is likely due to acute delirium. Once medically stable, will consult psychiatry for assistance with further treatment of the depression and suicide attempt. (4) GERD (gastroesophageal reflux disease) ICD Codes: K21.9 - Gastro-esophageal reflux disease without esophagitis Plan: Continue PPI (5) BPH loc w urin obs/LUTS ICD Codes: N40.1 - Benign prostatic hyperplasia with lower urinary tract symptoms Status: Chronic Plan: Patient normally takes an alpha concepcion, however, these cannot be crushed so will hold until he can swallow a pill. (6) Dysphagia ICD Codes: R13.10 - Dysphagia, unspecified Status: Acute Plan: Patient is nothing by mouth at this time. Will place NG tube for nutrition and hydration until he can take by mouth. Continue work with speech therapy. (7) Hypokalemia ICD Codes: E87.6 - Hypokalemia Status: Resolved Plan: Corrected. We'll follow potassium level. (8) Hypertension ICD Codes: I10 - Essential (primary) hypertension Status: Acute Plan: The patient did well previously with metoprolol. We'll resume metoprolol tartrate 25 mg twice daily once NG tube is placed. Continue with Vasotec IV as needed for elevated blood pressure. Discussed Condition With I spoke with the patient's by telephone. I updated her on his current condition. I discussed options with her including placing an NG tube for nutrition and hydration in order to give the patient a chance to improve versus comfort measures with hospice referral. She agrees to an NG tube at this time the plan is to give him to 3 days with hydration and nutrition to see if he can clear mentally and improve his swallowing. If this is not the case, she would like to consider hospice referral at that time. Problem Qualifiers (1) GERD (gastroesophageal reflux disease): Qualified Codes: K21.9 - Gastro-esophageal reflux disease without esophagitis (2) Dysphagia: Qualified Codes: R13.12 - Dysphagia, oropharyngeal phase (3) Hypertension: Qualified Codes: I10 - Essential (primary) hypertension Nabil Forte MD May 08, 2017 08:58
[2017-05-08] MEDS: METOPROLOL TARTRATE 25 MG TAB PO SCH ×2 (09:00→22:04)
[2017-05-08] MEDS: RESP: ALBUTEROL 2.5 MG/IPRATROPIUM 0.5 MG NEB (SCH) NEB ×3 (09:38→21:47)
[2017-05-08] MEDS ORDERED: RESP: ACETYLCYSTEINE 10% 10 ML NEB NEB SCH (10:00)
[2017-05-08] MEDS: RESP: ACETYLCYSTEINE 10% 30 ML NEB NEB SCH (16:00)
--- NOTE | 2017-05-08 17:37 | RADRPT ---
EXAM DATE/TIME: 05/08/2017 17:23 [facility] COMPARISON: BA SWALLOW W/SPEECH PATHOLOGY, May 07, 2017, 9:44. CHEST SINGLE AP, May 08, 2017, 6:13. INDICATIONS : NG tube placement. MEDICAL HISTORY : None. SURGICAL HISTORY : None. ENCOUNTER: Initial ACUITY: 1 day PAIN SCORE: 10/10 LOCATION: abdomen. FINDINGS: NG tube tip overlies the stomach. There is contrast present in the proximal colon present with associ ated with recent swallow evaluation. Intestinal gas pattern is nonspecific and grossly benign. No pilar picious calcific densities are appreciated. There is spinal scoliosis and mild degenerative change pr esent. Lung bases infiltrates. CONCLUSION: NG tube in the stomach Ravi Estrella MD on May 08, 2017 at 17:34 Board Certified Radiologist. This report was verified electronically.
[2017-05-08] MEDS: cefTRIAXone INJ 1,000 MG in SODIUM CHLORIDE 0.9% INJ 100 ML IV SCH (17:46)
[2017-05-08] MEDS: ENOXAPARIN SODIUM 30 MG/0.3 ML SYRINGE SQ SCH (17:47)
[2017-05-08] MEDS: AZITHROMYCIN INJ 500 MG in SODIUM CHLOR 0.9% 250 ML INJ 250 ML IV SCH (22:03)
[2017-05-09] VITALS (8 sets, daily range): BP systolic 113–173; BP diastolic 70–79; PULSE 85–117; RESP 18–21; TEMP 97.8–99.6; O2SAT 90–94
[2017-05-09] MEDS: RESP: ALBUTEROL 2.5 MG/IPRATROPIUM 0.5 MG NEB (SCH) NEB ×4 (02:57→21:34)
[2017-05-09] MEDS: RESP: ACETYLCYSTEINE 10% 30 ML NEB NEB SCH ×4 (04:00→21:34)
[2017-05-09 07:51] LABS: AUTOMATED NEUTROPHIL # 16.7 TH/MM3 (1.8-7.7); BASOPHIL % 0.2 % (0.0-2.0); HEMATOCRIT 45.5 % (39.0-51.0); LYMPH % 6.7 % (9.0-44.0); LYMPHOCYTE # 1.3 TH/MM3 (1.0-4.8); MEAN CORPUSCULAR HEMOGLOBIN 29.7 PG (27.0-34.0); MEAN PLATELET VOLUME 7.7 FL (7.0-11.0); MONO % 8.9 % (0.0-8.0); MONOCYTE # 1.8 TH/MM3 (0-0.9); NEUT % 84.2 % (16.0-70.0); PLATELET COUNT 362 TH/MM3 (150-450); RED BLOOD COUNT 5.06 MIL/MM3 (4.50-5.90); RED CELL DISTRIBUTION WIDTH 13.5 % (11.6-17.2); WHITE BLOOD COUNT 19.8 TH/MM3 (4.0-11.0)
[2017-05-09 08:30] LABS: BICARBONATE 25.3 MEQ/L (21.0-32.0); CALCIUM 8.2 MG/DL (8.5-10.1); CREATININE 0.88 MG/DL (0.60-1.30)
[2017-05-09] MEDS: SODIUM CHLORIDE 0.9% FLUSH 10 ML FLUSH IV FLUSH SCH ×2 (08:33→20:22)
[2017-05-09] MEDS: PANTOPRAZOLE SOD 40 MG DELAYED RELEASE TAB PO SCH (08:36)
[2017-05-09] MEDS: METOPROLOL TARTRATE 25 MG TAB PO SCH ×2 (08:36→20:21)
[2017-05-09] MEDS: D5-1/2 NS + KCL 30 MEQ INJ 1,000 ML IV SCH (10:34)
--- NOTE | 2017-05-09 16:43 | HHI.PR ---
Subjective Remarks Patient remains nothing by mouth. Speech therapy worked with the patient for 30 minutes today. Speech therapy was able to suction moderate amount of sputum from posterior oral pharynx. Patient less congested. Still too confused to participate and swallow evaluation. Patient tolerating NG feeds at 30 cc an hour. No significant residual volumes. He remains confused. He is restless and anxious at times. Blood pressure has been better with the metoprolol, however, when he is more anxious, the blood pressure does increase. He is receiving Vasotec IV as needed for elevated blood pressure readings. Current Medications Medications (Trade) Dose Ordered Sig/Horacio Route Start Time Stop Time Status Last Admin (NS Flush) 2 ml UNSCH PRN IV FLUSH 05/06/17 18:30 (NS Flush) 2 ml BID IV FLUSH 05/06/17 21:00 05/08/17 22:04 (Lovenox Inj) 30 mg Q24H SQ 05/06/17 19:00 05/08/17 17:47 (Narcan Inj) 0.4 mg UNSCH PRN IV PUSH 05/06/17 18:30 (Milk Of Magnesia Liq) 30 ml Q12H PRN PO 05/06/17 18:30 (Senokot) 17.2 mg Q12H PRN PO 05/06/17 18:30 Ceftriaxone Sodium 1000 mg/ Sodium Chloride 100 ml @ 200 mls/hr Q24H IV 05/06/17 19:00 05/08/17 17:46 (Ativan Inj) 0.5 mg Q6HR PRN IV PUSH 05/06/17 18:45 (Protonix) 40 mg DAILY PO 05/07/17 09:00 05/09/17 08:36 Azithromycin 500 mg/Sodium Chloride 250 ml @ 250 mls/hr Q24H IV 05/06/17 20:00 05/08/17 22:03 (Vasotec Inj) 1.25 mg Q6H PRN IV PUSH 05/07/17 12:00 05/08/17 11:58 Potassium Chloride/Dextrose/ Sod Cl 1,000 ml @ 84 mls/hr [id number] IV 05/07/17 18:00 05/09/17 10:34 (Lopressor) 25 mg Q12HR PO 05/08/17 09:00 05/09/17 08:36 (Duoneb Neb) 1 ampule Q6HR NEB NEB 05/08/17 10:00 05/09/17 16:16 (Mucomyst 10% Neb) 2 ml Q6HR NEB NEB 05/08/17 16:00 05/10/17 15:59 05/09/17 16:18 Objective Vital Signs Date Time Temp Pulse Resp B/P (MAP) Pulse Ox O2 Delivery O2 Flow Rate FiO2 05/09/17 16:16 93 Nasal Cannula 4.00 05/09/17 12:00 97.9 89 20 113/79 (90) 93 05/09/17 09:38 93 Nasal Cannula 4.00 05/09/17 08:00 98.6 90 20 152/71 (98) 91 05/09/17 04:00 98.0 96 18 160/70 (100) 94 05/09/17 00:00 97.8 85 18 149/70 (96) 92 05/08/17 21:49 93 Nasal Cannula 4.00 05/08/17 20:00 97.8 106 20 173/79 (110) 90 I/O 05/08/17 05/08/17 05/08/17 05/09/17 05/09/17 05/09/17 07:00 15:00 23:00 07:00 15:00 23:00 Intake Total 0 ml 1000 ml Output Total 1000 ml 1000 ml Balance -1000 ml 0 ml Intake Oral 0 ml 0 ml IV Total 1000 ml Output Urine Total 1000 ml 1000 ml # Voids 5 2 # Bowel Movements 0 Cardiovascular: Regular rate and rhythm Lungs: Clear to auscultation except for upper airway rhonchi Abdomen: Soft, nontender nondistended with bowel sounds present Extremities reveal no edema Neurologic exam: Awake and alert but confused. Speech is still garbled due to congestion in throat. No lateralizing deficits. Mood is anxious. Result Diagram: 05/09/17 0710 05/09/17 0710 Assessment and Plan Problem List: (1) Hypernatremia ICD Codes: E87.0 - Hyperosmolality and hypernatremia Status: Acute Plan: Continue with free water through NG tube. Patient tolerating enteral feeds adequately enough to discontinue IV fluids. Will follow sodium level (2) Aspiration pneumonitis ICD Codes: J69.0 - Pneumonitis due to inhalation of food and vomit Status: Acute Plan: White blood count was higher today. We'll add metronidazole to cover for anaerobic organisms. Continue with azithromycin and Rocephin. Repeat chest x-ray to rule out new infiltrate. Repeat white blood cell count in the morning. Continue with nebulizer treatments and supplemental oxygen. (3) Major depressive disorder, single episode, severe without psychotic features ICD Codes: F32.2 - Major depressive disorder, single episode, severe without psychotic features Status: Acute Plan: Patient is currently confused which is likely due to acute delirium. Once medically stable, will consult psychiatry for assistance with further treatment of the depression and suicide attempt. (4) GERD (gastroesophageal reflux disease) ICD Codes: K21.9 - Gastro-esophageal reflux disease without esophagitis Plan: Continue PPI (5) BPH loc w urin obs/LUTS ICD Codes: N40.1 - Benign prostatic hyperplasia with lower urinary tract symptoms Status: Chronic Plan: Patient normally takes an alpha concepcion, however, these cannot be crushed so will hold until he can swallow a pill. (6) Dysphagia ICD Codes: R13.10 - Dysphagia, unspecified Status: Resolved Plan: Will increase NG feeds to 55 cc an hour. Continue with supplemental free water. (7) Hypokalemia ICD Codes: E87.6 - Hypokalemia Status: Resolved Plan: Corrected. Follow potassium level (8) Hypertension ICD Codes: I10 - Essential (primary) hypertension Status: Acute Plan: Blood pressure under better control with the metoprolol. Blood pressure still spikes from patient is anxious. Will provide enalapril as needed (9) Acute delirium ICD Codes: R41.0 - Disorientation, unspecified Status: Acute Plan: Will need to continue to try to reorient patient. I am going to prescribe a low-dose of alprazolam 0.125 mg every 8 hours to try to calm some of his anxiety and agitation. Anticipate improvement with improved hydration and nutrition. Problem Qualifiers (1) GERD (gastroesophageal reflux disease): Qualified Codes: K21.9 - Gastro-esophageal reflux disease without esophagitis (2) Dysphagia: Qualified Codes: R13.12 - Dysphagia, oropharyngeal phase (3) Hypertension: Qualified Codes: I10 - Essential (primary) hypertension Nabil Forte MD May 09, 2017 16:43
[2017-05-09] MEDS: ALPRAZolam 0.25 MG TAB NG SCH ×2 (17:29→22:57)
[2017-05-09] MEDS: metroNIDAZOLE 500 MG INJ 100 ML IV SCH (17:29)
[2017-05-09] MEDS: cefTRIAXone INJ 1,000 MG in SODIUM CHLORIDE 0.9% INJ 100 ML IV SCH (17:35)
[2017-05-09] MEDS: ENOXAPARIN SODIUM 30 MG/0.3 ML SYRINGE SQ SCH (17:36)
[2017-05-09] MEDS: AZITHROMYCIN INJ 500 MG in SODIUM CHLOR 0.9% 250 ML INJ 250 ML IV SCH (20:22)
[2017-05-10] VITALS (12 sets, daily range): BP systolic 81–182; BP diastolic 45–85; PULSE 89–106; RESP 20–38; TEMP 97.5–101.9; O2SAT 90–98
[2017-05-10] MEDS: metroNIDAZOLE 500 MG INJ 100 ML IV SCH ×3 (01:17→17:05)
--- NOTE | 2017-05-10 03:35 | RADRPT ---
EXAM DATE/TIME: 05/10/2017 02:51 [facility] COMPARISON: CHEST SINGLE AP, May 08, 2017, 6:13. INDICATIONS : Congestion. MEDICAL HISTORY : None. SURGICAL HISTORY : None. ENCOUNTER: Subsequent ACUITY: 1 week PAIN SCORE: 0/10 LOCATION: Bilateral chest FINDINGS: A single view of the chest demonstrates the lungs to be symmetrically aerated without evidence of mas s or effusion. There may be small infiltrate right lung base. NG tube in good position. The cardiome diastinal contours are unremarkable. Osseous structures are intact. CONCLUSION: Questionable infiltrate right lung base. NG tube in good position. Froylan Burt MD on May 10, 2017 at 3:34 Board Certified Radiologist. This report was verified electronically.
[2017-05-10] MEDS: RESP: ACETYLCYSTEINE 10% 30 ML NEB NEB SCH ×2 (04:00→09:16)
[2017-05-10] MEDS: RESP: ALBUTEROL 2.5 MG/IPRATROPIUM 0.5 MG NEB (SCH) NEB ×4 (04:43→20:40)
[2017-05-10] MEDS: ALPRAZolam 0.25 MG TAB NG SCH ×3 (05:37→22:00)
[2017-05-10] MEDS: SODIUM CHLORIDE 0.9% FLUSH 10 ML FLUSH IV FLUSH SCH ×2 (08:07→21:00)
[2017-05-10] MEDS: PANTOPRAZOLE SOD 40 MG DELAYED RELEASE TAB PO SCH (08:07)
[2017-05-10] MEDS: METOPROLOL TARTRATE 25 MG TAB PO SCH (08:07)
[2017-05-10 08:26] LABS: AUTOMATED NEUTROPHIL # 14.2 TH/MM3 (1.8-7.7); BASOPHIL % 0.2 % (0.0-2.0); HEMATOCRIT 44.1 % (39.0-51.0); HEMOGLOBIN 14.7 GM/DL (13.0-17.0); LYMPH % 6.4 % (9.0-44.0); LYMPHOCYTE # 1.1 TH/MM3 (1.0-4.8); MEAN CORPUSCULAR HEMOGLOBIN 30.4 PG (27.0-34.0); MEAN CORPUSCULAR HGB CONC 33.4 % (32.0-36.0); MEAN PLATELET VOLUME 8.5 FL (7.0-11.0); MONO % 9.3 % (0.0-8.0); MONOCYTE # 1.6 TH/MM3 (0-0.9); NEUT % 84.1 % (16.0-70.0); PLATELET COUNT 305 TH/MM3 (150-450); RED BLOOD COUNT 4.84 MIL/MM3 (4.50-5.90); RED CELL DISTRIBUTION WIDTH 13.8 % (11.6-17.2); WHITE BLOOD COUNT 16.9 TH/MM3 (4.0-11.0)
[2017-05-10 08:38] LABS: BICARBONATE 27.9 MEQ/L (21.0-32.0); CREATININE 0.85 MG/DL (0.60-1.30)
--- NOTE | 2017-05-10 10:38 | HHI.PR ---
Subjective Remarks Less restlessness overnight. Remains nothing by mouth. Tolerating tube feeds. Urine output good. No bowel movement yet. Respiratory suctioned moderate amount of sputum from mouth and throat earlier this morning. Receiving nebulizer treatments. Remains on oxygen. Current Medications Medications (Trade) Dose Ordered Sig/Horacio Route Start Time Stop Time Status Last Admin (NS Flush) 2 ml UNSCH PRN IV FLUSH 05/06/17 18:30 (NS Flush) 2 ml BID IV FLUSH 05/06/17 21:00 05/10/17 08:07 (Lovenox Inj) 30 mg Q24H SQ 05/06/17 19:00 05/09/17 17:36 (Narcan Inj) 0.4 mg UNSCH PRN IV PUSH 05/06/17 18:30 (Milk Of Magnesia Liq) 30 ml Q12H PRN PO 05/06/17 18:30 (Senokot) 17.2 mg Q12H PRN PO 05/06/17 18:30 Ceftriaxone Sodium 1000 mg/ Sodium Chloride 100 ml @ 200 mls/hr Q24H IV 05/06/17 19:00 05/09/17 17:35 (Ativan Inj) 0.5 mg Q6HR PRN IV PUSH 05/06/17 18:45 (Protonix) 40 mg DAILY PO 05/07/17 09:00 05/10/17 08:07 Azithromycin 500 mg/Sodium Chloride 250 ml @ 250 mls/hr Q24H IV 05/06/17 20:00 05/09/17 20:22 (Vasotec Inj) 1.25 mg Q6H PRN IV PUSH 05/07/17 12:00 05/08/17 11:58 (Lopressor) 25 mg Q12HR PO 05/08/17 09:00 05/10/17 08:07 (Duoneb Neb) 1 ampule Q6HR NEB NEB 05/08/17 10:00 05/10/17 09:16 (Mucomyst 10% Neb) 2 ml Q6HR NEB NEB 05/08/17 16:00 05/10/17 15:59 05/10/17 09:16 Metronidazole 100 ml @ 100 mls/hr Q8H IV 05/09/17 17:00 05/10/17 08:01 (Xanax) 0.125 mg Q8HR NG 05/09/17 16:30 05/10/17 05:37 Objective Vital Signs Date Time Temp Pulse Resp B/P (MAP) Pulse Ox O2 Delivery O2 Flow Rate FiO2 05/10/17 09:21 90 Nasal Cannula 4.00 05/10/17 08:00 98.4 90 20 163/70 (101) 92 05/10/17 00:00 99.9 106 21 130/85 (100) 90 05/09/17 20:00 99.6 117 21 173/77 (109) 92 05/09/17 16:16 93 Nasal Cannula 4.00 05/09/17 16:00 97.8 98 20 172/70 (104) 90 05/09/17 12:00 97.9 89 20 113/79 (90) 93 I/O 05/09/17 05/09/17 05/09/17 05/10/17 05/10/17 05/10/17 07:00 15:00 23:00 07:00 15:00 23:00 Intake Total 1150 ml 100 ml Output Total 600 ml 1275 ml Balance 550 ml -1175 ml Intake Oral 0 ml 0 ml IV Total 1150 ml 100 ml Output Urine Total 600 ml 1275 ml # Voids 2 General: Awake and alert but confused Cardiovascular: Regular rate and rhythm Lungs: Diminished breath sounds on right otherwise no wheezes, rhonchi or rales Abd: soft, NT, ND, +BS Result Diagram: 05/10/1771005/10/17 07 Assessment and Plan Problem List: (1) Aspiration pneumonitis ICD Codes: J69.0 - Pneumonitis due to inhalation of food and vomit Status: Acute Plan: White blood count lower today. Chest x-ray reveals possible right lower lobe infiltrate. Continue with IV antibiotics. Continue with nebulizer treatments and supplemental oxygen (2) Hypernatremia ICD Codes: E87.0 - Hyperosmolality and hypernatremia Status: Acute Plan: Sodium level higher today. Increase free water flushes per NG tube. (3) Dysphagia ICD Codes: R13.10 - Dysphagia, unspecified Status: Resolved Plan: Tolerating NG feeds. Speech therapy working with patient. He remains nothing by mouth. (4) Major depressive disorder, single episode, severe without psychotic features ICD Codes: F32.2 - Major depressive disorder, single episode, severe without psychotic features Status: Acute Plan: Patient is currently confused which is likely due to acute delirium. Once medically stable, will consult psychiatry for assistance with further treatment of the depression and suicide attempt. (5) Hypertension ICD Codes: I10 - Essential (primary) hypertension Status: Acute Plan: Blood pressure remains variable depending on level of restlessness. Will increase metoprolol 50 mg twice daily. Continue with Vasotec as needed for elevated blood pressure (6) Acute delirium ICD Codes: R41.0 - Disorientation, unspecified Status: Acute Plan: Patient remains confused. Continue with low dose alprazolam. Continue to try to reorient patient. (7) GERD (gastroesophageal reflux disease) ICD Codes: K21.9 - Gastro-esophageal reflux disease without esophagitis Plan: Continue PPI (8) Hypokalemia ICD Codes: E87.6 - Hypokalemia Status: Resolved Plan: Corrected. Follow potassium level (9) BPH loc w urin obs/LUTS ICD Codes: N40.1 - Benign prostatic hyperplasia with lower urinary tract symptoms Status: Chronic Plan: Patient normally takes an alpha concepcion, however, these cannot be crushed so will hold until he can swallow a pill. Problem Qualifiers (1) Dysphagia: Qualified Codes: R13.12 - Dysphagia, oropharyngeal phase (2) Hypertension: Qualified Codes: I10 - Essential (primary) hypertension (3) GERD (gastroesophageal reflux disease): Qualified Codes: K21.9 - Gastro-esophageal reflux disease without esophagitis Nabil Forte MD May 10, 2017 10:38
[2017-05-10] MEDS ORDERED: ACETAMINOPHEN 650 MG/20.3 ML UDC NG PRN (12:00)
--- NOTE | 2017-05-10 13:53 | PD.CONS ---
History of Present Illness Service infectious disease Consult Requested By Dr. Forte Reason for Consult evaluate patient with pneumonia and fever Primary Care Physician Unknown Diagnoses: History of Present Illness Patient seen and examined. Records reviewed. Patient is an 86-year-old male, initially admitted May 02 with an intentional drug overdose using Percocet, Lortab and benzodiazepine. He was initially in the ICU and treated aggressively, and he was discharged to the psychiatric unit May 03. During that admission he had an infiltrate in his left base. He was on Bactrim when he went to the psych unit. Patient's mental status has been lethargy as well as confusion. He was evaluated by speech therapy, and they recommended nothing by mouth because of aspiration problem. His by mouth intake has been poor. His sodium has been elevated. He was transferred to the medical floor for further management of his problems. Patient continues to be on nothing by mouth, and has an NG tube for tube feedings. Yesterday and today he started having fevers. Patient has been on Rocephin and Zithromax since May 06. He has no central line. He has a condom catheter in place. There's been no documentation of any fever. His white count has been elevated. His chest x-ray now is showing again the infiltrates in the right base which is no, and the left base. Infectious disease consultation has been requested to evaluate the patient. I discuss this with the nurse. Patient apparently was very agitated earlier and received Xanax. He is currently quite lethargic. A respiratory rate has been up and that was what he was doing today. He is on nasal O2, saturation has been in the 92. Patient is currently a full code. Review of Systems ROS Limitations: Clinical Condition, Altered Mental Status (. 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 Hemorrhoids Sleep apnea Kidney stones GERD, hiatal hernia and esophageal diverticulum Problem with esophageal spasm Diverticulosis Osteoarthritis Colonic polyp BPH Melanoma of the skin and basal cell as well as squamous cell CA of the skin History of bladder cancer Past Surgical History Appendectomy Hernia repair TURBT and BCG treatment for his bladder cancer Removal of skin cancers Arthroscopic surgery to both shoulders Cataract surgery left eye Active Ordered Medications Current Medications Medications (Trade) Dose Ordered Sig/Horacio Route Start Time Stop Time Status Last Admin (NS Flush) 2 ml UNSCH PRN IV FLUSH 05/06/17 18:30 (NS Flush) 2 ml BID IV FLUSH 05/06/17 21:00 05/10/17 08:07 (Lovenox Inj) 30 mg Q24H SQ 05/06/17 19:00 05/09/17 17:36 (Narcan Inj) 0.4 mg UNSCH PRN IV PUSH 05/06/17 18:30 (Milk Of Magnesia Liq) 30 ml Q12H PRN PO 05/06/17 18:30 (Senokot) 17.2 mg Q12H PRN PO 05/06/17 18:30 Ceftriaxone Sodium 1000 mg/ Sodium Chloride 100 ml @ 200 mls/hr Q24H IV 05/06/17 19:00 05/09/17 17:35 (Ativan Inj) 0.5 mg Q6HR PRN IV PUSH 05/06/17 18:45 (Protonix) 40 mg DAILY PO 05/07/17 09:00 05/10/17 08:07 Azithromycin 500 mg/Sodium Chloride 250 ml @ 250 mls/hr Q24H IV 05/06/17 20:00 05/09/17 20:22 (Vasotec Inj) 1.25 mg Q6H PRN IV PUSH 05/07/17 12:00 05/08/17 11:58 (Duoneb Neb) 1 ampule Q6HR NEB NEB 05/08/17 10:00 05/10/17 09:16 (Mucomyst 10% Neb) 2 ml Q6HR NEB NEB 05/08/17 16:00 05/10/17 15:59 05/10/17 09:16 Metronidazole 100 ml @ 100 mls/hr Q8H IV 05/09/17 17:00 05/10/17 08:01 (Xanax) 0.125 mg Q8HR NG 05/09/17 16:30 05/10/17 12:38 (Lopressor) 50 mg Q12HR NG 05/10/17 21:00 (Tylenol 650 Mg/ 20 ml Liq) 650 mg Q4H PRN NG 05/10/17 12:00 05/10/17 12:08 Family History noncontributory Social History Lives with the No smoking Drink alcohol No illicit drugs Physical Exam Vital Signs Vital Signs Date Time Temp Pulse Resp B/P (MAP) Pulse Ox O2 Delivery O2 Flow Rate FiO2 05/10/17 13:15 100.7 97 35 122/74 (90) 92 05/10/17 12:38 101.9 99 144/69 (94) 92 05/10/17 12:00 101.2 98 22 163/72 (102) 92 05/10/17 09:21 90 Nasal Cannula 4.00 05/10/17 08:00 98.4 90 20 163/70 (101) 92 05/10/17 00:00 99.9 106 21 130/85 (100) 90 05/09/17 20:00 99.6 117 21 173/77 (109) 92 05/09/17 16:16 93 Nasal Cannula 4.00 05/09/17 16:00 97.8 98 20 172/70 (104) 90 Physical Exam GENERAL: Patient is a well-nourished, well-developed male, very lethargic ( got xanax for agitation per RN), tachypneic, on nasal O2. SKIN: Warm and dry. No generalized rash, no ecchymoses and no evidence of embolic lesions. HEAD: Atraumatic. Normocephalic. No temporal wasting, or tenderness. Face flushed EYES: [place] conjunctiva. No petechia or hemorrhage. Pupils equal, round and reactive to light. No scleral icterus. No injection or drainage. EARS, NOSE AND THROAT: Nose without bleeding or purulent nasal discharge. Dry oral mucosa. NECK: Trachea midline. Supple and not tender, no meningeal signs CARDIOVASCULAR: Regular rate and rhythm. No murmurs, rubs or gallops heard RESPIRATORY: Coarse breath sounds bilaterally, decreased at the bases ABDOMEN: Soft, nondistended, bowel sounds present and normoactive, not tender. No guarding. No rebound. No organomegaly. No bladder distension noted EXTREMITIES: No clubbing, cyanosis, or edema. No calf tenderness. Well perfused and warm. NEUROLOGICAL: Lethargic PSYCHIATRIC: Unable to assess LINE: No evidence of infection : Has condom cath, urine looks clear Laboratory Laboratory Tests Test 05/10/17 07:11 White Blood Count 16.9 Red Blood Count 4.84 Hemoglobin 14.7 Hematocrit 44.1 Mean Corpuscular Volume 91.0 Mean Corpuscular Hemoglobin 30.4 Mean Corpuscular Hemoglobin Concent 33.4 Red Cell Distribution Width 13.8 Platelet Count 305 Mean Platelet Volume 8.5 Neutrophils (%) (Auto) 84.1 Lymphocytes (%) (Auto) 6.4 Monocytes (%) (Auto) 9.3 Eosinophils (%) (Auto) 0.0 Basophils (%) (Auto) 0.2 Neutrophils # (Auto) 14.2 Lymphocytes # (Auto) 1.1 Monocytes # (Auto) 1.6 Eosinophils # (Auto) 0.0 Basophils # (Auto) 0.0 CBC Comment DIFF FINAL Differential Comment Blood Urea Nitrogen 20 Creatinine 0.85 Random Glucose 132 Calcium Level 8.0 Sodium Level 151 Potassium Level 3.8 Chloride Level 116 Carbon Dioxide Level 27.9 Anion Gap 7 Estimat Glomerular Filtration Rate 85 Date/Time Source Procedure Growth Status 05/10/17 13:05 Blood Arterial Line Aerobic Blood Culture Pending Received 05/10/17 13:05 Blood Arterial Line Anaerobic Blood Culture Pending Received Result Diagram: 05/10/17 0711 05/10/17 0711 Imaging RADIOLOGY STUDIES/FILMS REVIEWED Chest X-Ray 05/10/17 0600 Signed Impressions: Service Date/Time: Wednesday, May 10, 2017 02:51 - CONCLUSION: Questionable infiltrate right lung base. NG tube in good position. Froylan Burt MD Abdomen X-Ray 05/08/17 0000 Signed Impressions: Service Date/Time: April 17:23 - CONCLUSION: NG tube in the stomach Ravi Estrella MD Modified Barium Swallow 05/07/17 0000 Signed Impressions: Service Date/Time: Sunday, May 07, 2017 09:44 - CONCLUSION: Aspiration into the upper airway. Gabe Luther MD Assessment and Plan Assessment and Plan IMPRESSION Sepsis due likely to aspiration PNA - has been in hospital setting 05/02 Aspiration PNA S/P drug OD, for intentional drug OD RECOMMENDATION ABG Get UA and C/S, straight cath Try to get sputum Gram stain and culture Change antibiotic to cover nosocomial pathogens Stop Zithromax and Rocephin Continue Flagyl Add cefepime and Zyvox to cover hospital-acquired pathogens Follow cultures Monitor temps Monitor progress Further recommendation to follow once workup is completed I will follow along with you Thank you for this consultation Discussed Condition With Discussed with Yesica Phillip MD May 10, 2017 13:53
[2017-05-10] MEDS ORDERED: MORPHINE SULFATE 2 MG/ML SYRINGE IV PUSH ONE (14:30)
[2017-05-10] MEDS ORDERED: FUROSEMIDE 40 MG/4 ML VIAL IV PUSH ONE (14:30)
--- NOTE | 2017-05-10 14:33 | RADRPT ---
EXAM DATE/TIME: 05/10/2017 14:12 [facility] COMPARISON: CHEST SINGLE AP, May 10, 2017, 2:51. INDICATIONS : Shortness of breath. MEDICAL HISTORY : None. SURGICAL HISTORY : None. ENCOUNTER: Subsequent ACUITY: 1 week PAIN SCORE: Non-responsive. LOCATION: chest FINDINGS: A single view of the chest demonstrates nasogastric tube tip in the stomach. Bilateral mostly basilar airspace disease. No significant effusion. No pneumothorax. CONCLUSION: 1. Celine tip in stomach. Mild basilar airspace disease similar to exam from earlier today. Rah Swenson MD on May 10, 2017 at 14:29 Board Certified Radiologist. This report was verified electronically.
[2017-05-10] MEDS: LINEZOLID 600 MG PREMIX 300 ML IV SCH (14:37)
[2017-05-10] MEDS: CEFEPIME INJ 2,000 MG in SODIUM CHLORIDE 0.9% INJ 100 ML IV SCH (14:44)
[2017-05-10] MEDS: ENOXAPARIN SODIUM 30 MG/0.3 ML SYRINGE SQ SCH (17:05)
[2017-05-10 17:32] LABS: AMORPHOUS SEDIMENT, URINE RARE; BACTERIA, URINE OCC /hpf; BILIRUBIN, URINE NEG (NEG); BLOOD, URINE SMALL (NEG); GLUCOSE,URINE NEG (NEG); KETONE, URINE NEG (NEG); MUCUS URINE FEW /lpf (OCC); NITRITE,URINE NEG (NEG); PH, URINE 5.5 (5.0-8.5); SQUAMOUS EPITHELIAL CELL URINE <1 /hpf (0-5); URINE COLOR YELLOW (YELLW/STRAW); URINE LEUKOCYTE ESTERASE LARGE (NEG)
[2017-05-10] MEDS: LORazepam 2 MG/ML VIAL IV PUSH PRN (17:37)
[2017-05-10] MEDS: METOPROLOL TARTRATE 50 MG TAB NG SCH (21:00)
[2017-05-11] VITALS (13 sets, daily range): BP systolic 123–139; BP diastolic 56–65; PULSE 66–106; RESP 24–32; TEMP 97.8–99.2; O2SAT 95–100
[2017-05-11] MEDS: metroNIDAZOLE 500 MG INJ 100 ML IV SCH ×3 (00:48→16:10)
[2017-05-11] MEDS: LINEZOLID 600 MG PREMIX 300 ML IV SCH ×2 (03:09→11:50)
[2017-05-11] MEDS: RESP: ALBUTEROL 2.5 MG/IPRATROPIUM 0.5 MG NEB (SCH) NEB ×4 (03:47→20:00)
[2017-05-11] MEDS: CEFEPIME INJ 2,000 MG in SODIUM CHLORIDE 0.9% INJ 100 ML IV SCH ×2 (05:37→15:35)
[2017-05-11] MEDS: ALPRAZolam 0.25 MG TAB NG SCH ×4 (05:37→21:14)
[2017-05-11 06:02] LABS: AUTOMATED NEUTROPHIL # 11.8 TH/MM3 (1.8-7.7); BASOPHIL % 0.1 % (0.0-2.0); EOSINOPHIL % 0.2 % (0.0-4.0); HEMATOCRIT 42.2 % (39.0-51.0); LYMPH % 8.9 % (9.0-44.0); LYMPHOCYTE # 1.3 TH/MM3 (1.0-4.8); MEAN CELL VOLUME 91.1 FL (80.0-100.0); MEAN CORPUSCULAR HEMOGLOBIN 30.2 PG (27.0-34.0); MEAN CORPUSCULAR HGB CONC 33.2 % (32.0-36.0); MEAN PLATELET VOLUME 8.3 FL (7.0-11.0); MONO % 12.3 % (0.0-8.0); MONOCYTE # 1.9 TH/MM3 (0-0.9); NEUT % 78.5 % (16.0-70.0); PLATELET COUNT 300 TH/MM3 (150-450); RED BLOOD COUNT 4.63 MIL/MM3 (4.50-5.90); RED CELL DISTRIBUTION WIDTH 13.7 % (11.6-17.2)
[2017-05-11 06:38] LABS: BICARBONATE 30.4 MEQ/L (21.0-32.0); CALCIUM 7.9 MG/DL (8.5-10.1)
[2017-05-11] MEDS: PANTOPRAZOLE SOD 40 MG DELAYED RELEASE TAB PO SCH (08:11)
[2017-05-11] MEDS: METOPROLOL TARTRATE 50 MG TAB NG SCH ×2 (08:11→21:14)
[2017-05-11] MEDS: SODIUM CHLORIDE 0.9% FLUSH 10 ML FLUSH IV FLUSH SCH ×2 (08:11→21:14)
--- NOTE | 2017-05-11 09:34 | HHI.PR ---
Subjective Remarks The patient developed fever >100F last evening. He developed respiratory distress with tachypnea. Blood gas revealed hypercapnia. Patient placed on BiPAP. Respiratory status has improved. He is now on nasal cannula. Oxygen saturations are currently >95%. Patient was somnolent earlier this morning but now is awake and alert. Disoriented. NG feeds were held last night because of BiPAP. Sodium level higher today. Patient seen by infectious disease and antibiotic coverage adjusted. Urine culture pending. Blood cultures pending. Current Medications Medications (Trade) Dose Ordered Sig/Horacio Route Start Time Stop Time Status Last Admin (NS Flush) 2 ml UNSCH PRN IV FLUSH 05/06/17 18:30 (NS Flush) 2 ml BID IV FLUSH 05/06/17 21:00 05/11/17 08:11 (Lovenox Inj) 30 mg Q24H SQ 05/06/17 19:00 05/10/17 17:05 (Narcan Inj) 0.4 mg UNSCH PRN IV PUSH 05/06/17 18:30 (Milk Of Magnesia Liq) 30 ml Q12H PRN PO 05/06/17 18:30 (Senokot) 17.2 mg Q12H PRN PO 05/06/17 18:30 (Ativan Inj) 0.5 mg Q6HR PRN IV PUSH 05/06/17 18:45 05/10/17 17:37 (Protonix) 40 mg DAILY PO 05/07/17 09:00 05/11/17 08:11 (Vasotec Inj) 1.25 mg Q6H PRN IV PUSH 05/07/17 12:00 05/08/17 11:58 (Duoneb Neb) 1 ampule Q6HR NEB NEB 05/08/17 10:00 05/11/17 07:51 Metronidazole 100 ml @ 100 mls/hr Q8H IV 05/09/17 17:00 05/11/17 08:11 (Xanax) 0.125 mg Q8HR NG 05/09/17 16:30 05/10/17 12:38 (Lopressor) 50 mg Q12HR NG 05/10/17 21:00 05/11/17 08:11 (Tylenol 650 Mg/ 20 ml Liq) 650 mg Q4H PRN NG 05/10/17 12:00 05/10/17 12:08 Cefepime HCl 2000 mg/Sodium Chloride 100 ml @ 200 mls/hr Q12H IV 05/10/17 16:00 05/11/17 05:37 Linezolid 300 ml @ 300 mls/hr Q12H IV 05/10/17 14:00 05/11/17 03:09 Potassium Chloride/Dextrose/ Sod Cl 1,000 ml @ 125 mls/hr Q8H IV 05/11/17 10:00 Objective Vital Signs Date Time Temp Pulse Resp B/P (MAP) Pulse Ox O2 Delivery O2 Flow Rate FiO2 05/11/17 07:53 96 Nasal Cannula 5.00 05/11/17 05:45 95 Nasal Cannula 6.00 05/11/17 04:00 97.8 92 25 123/56 (78) 98 05/11/17 03:46 95 50 05/11/17 00:00 98.7 92 25 123/56 (78) 98 05/10/17 23:55 95 50 05/10/17 23:01 98.4 98 20 182/67 (105) 98 05/10/17 20:30 95 50 05/10/17 20:00 97.5 90 31 81/45 (57) 95 86/62 (70) 05/10/17 16:00 99.0 89 38 121/68 (85) 95 05/10/17 14:46 93 50 05/10/17 13:15 100.7 97 35 122/74 (90) 92 05/10/17 12:38 101.9 99 144/69 (94) 92 05/10/17 12:00 101.2 98 22 163/72 (102) 92 I/O 05/10/17 05/10/17 05/10/17 05/11/17 05/11/17 05/11/17 07:00 15:00 23:00 07:00 15:00 23:00 Intake Total 100 ml 200 ml 200 ml 500 ml Output Total 1275 ml 850 ml 650 ml Balance -1175 ml 200 ml -650 ml -150 ml Intake Oral 0 ml 0 ml IV Total 100 ml 200 ml 200 ml 500 ml Output Urine Total 1275 ml 850 ml 650 ml # Bowel Movements 0 0 Cardia vascular: Regular rate and rhythm Lungs: Rhonchi greater on the right than the left. No wheezes or rales Abdomen: Soft, nontender and nondistended with bowel sounds present Extremities: No edema Neurologic: Arouses to verbal stimulus. Oriented to person only. Speech is more clear after NT suctioning. No lateralizing deficits. Result Diagram: 05/11/17 0534 05/11/17 0534 Imaging Last 48 hours Impressions Chest X-Ray 05/10/17 0600 Signed Impressions: Service Date/Time: Wednesday, May 10, 2017 02:51 - CONCLUSION: Questionable infiltrate right lung base. NG tube in good position. Froylan Burt MD Chest X-Ray 05/10/17 0000 Signed Impressions: Service Date/Time: Wednesday, May 10, 2017 14:12 - CONCLUSION: 1. Celine tip in stomach. Mild basilar airspace disease similar to exam from earlier today. Rah Swenson MD Other Results Blood culture-pending Urine culture-pending Assessment and Plan Problem List: (1) Aspiration pneumonitis ICD Codes: J69.0 - Pneumonitis due to inhalation of food and vomit Status: Acute Plan: Patient was febrile yesterday. Antibiotics adjusted by infectious disease. Continue with submental oxygen and wean as tolerated. Continue with nebulizer treatments. Frequent NT suctioning. (2) Hypernatremia ICD Codes: E87.0 - Hyperosmolality and hypernatremia Status: Acute Plan: Sodium level higher today. Resume NG feeds. Resume IV fluids with D5 1/ 4NS. Follow sodium level (3) Dysphagia ICD Codes: R13.10 - Dysphagia, unspecified Status: Resolved Plan: Patient remains nothing by mouth. Resume NG feeds. Speech therapy working with patient. (4) Major depressive disorder, single episode, severe without psychotic features ICD Codes: F32.2 - Major depressive disorder, single episode, severe without psychotic features Status: Acute Plan: Patient is currently confused which is likely due to acute delirium. Once medically stable, will consult psychiatry for assistance with further treatment of the depression and suicide attempt. (5) Hypertension ICD Codes: I10 - Essential (primary) hypertension Status: Acute Plan: The pressure under adequate control with current regimen of metoprolol. (6) Acute delirium ICD Codes: R41.0 - Disorientation, unspecified Status: Acute Plan: Patient remains confused. Continue with low dose alprazolam. Continue to try to reorient patient. (7) GERD (gastroesophageal reflux disease) ICD Codes: K21.9 - Gastro-esophageal reflux disease without esophagitis Plan: Continue PPI (8) Hypokalemia ICD Codes: E87.6 - Hypokalemia Status: Resolved Plan: Corrected. Follow potassium level (9) BPH loc w urin obs/LUTS ICD Codes: N40.1 - Benign prostatic hyperplasia with lower urinary tract symptoms Status: Chronic Plan: Patient normally takes an alpha concepcion, however, these cannot be crushed so will hold until he can swallow a pill. (10) At high risk for deep venous thrombosis ICD Codes: Z91.89 - Other specified personal risk factors, not elsewhere classified Status: Acute Plan: Continue Lovenox Problem Qualifiers (1) Dysphagia: Qualified Codes: R13.12 - Dysphagia, oropharyngeal phase (2) Hypertension: Qualified Codes: I10 - Essential (primary) hypertension (3) GERD (gastroesophageal reflux disease): Qualified Codes: K21.9 - Gastro-esophageal reflux disease without esophagitis Nabil Forte MD May 11, 2017 09:34
[2017-05-11] MEDS: D5-1/4 NS + KCL 20 MEQ INJ 1,000 ML IV SCH ×2 (09:46→17:48)
--- NOTE | 2017-05-11 09:58 | HHI.IDPN ---
Subjective Subjective Remarks Patient is an 86-year-old male, initially admitted May 02 with an intentional drug overdose using Percocet, Lortab and benzodiazepine. He was initially in the ICU and treated aggressively, and he was discharged to the psychiatric unit May 03. During that admission he had an infiltrate in his left base. He was on Bactrim when he went to the psych unit. Patient's mental status has been lethargy as well as confusion. He was evaluated by speech therapy, and they recommended nothing by mouth because of aspiration problem. His by mouth intake has been poor. His sodium has been elevated. He was transferred to the medical floor for further management of his problems. Patient continues to be on nothing by mouth, and has an NG tube for tube feedings. Yesterday and today he started having fevers. Patient has been on Rocephin and Zithromax since May 06. He has no central line. He has a condom catheter in place. There's been no documentation of any fever. His white count has been elevated. His chest x-ray now is showing again the infiltrates in the right base which is no, and the left base. Infectious disease consultation has been requested to evaluate the patient. I discuss this with the nurse. Patient apparently was very agitated earlier and received Xanax. He is currently quite lethargic. A respiratory rate has been up and that was what he was doing today. He is on nasal O2, saturation has been in the 92. Notes reviewed D/W RN Transferred to ICU for respiratory problems Temps 100+ Did BIPAP overnight ON nasal O2 More awake this morning, but did not follow Has DNR status now Sounds very congested Antibiotics Zyvox Cefepime Flagyl Current Medications Medications (Trade) Dose Ordered Sig/Horacio Route Start Time Stop Time Status Last Admin (NS Flush) 2 ml UNSCH PRN IV FLUSH 05/06/17 18:30 (NS Flush) 2 ml BID IV FLUSH 05/06/17 21:00 05/11/17 08:11 (Lovenox Inj) 30 mg Q24H SQ 05/06/17 19:00 05/10/17 17:05 (Narcan Inj) 0.4 mg UNSCH PRN IV PUSH 05/06/17 18:30 (Milk Of Magnesia Liq) 30 ml Q12H PRN PO 05/06/17 18:30 (Senokot) 17.2 mg Q12H PRN PO 05/06/17 18:30 (Ativan Inj) 0.5 mg Q6HR PRN IV PUSH 05/06/17 18:45 05/10/17 17:37 (Protonix) 40 mg DAILY PO 05/07/17 09:00 05/11/17 08:11 (Vasotec Inj) 1.25 mg Q6H PRN IV PUSH 05/07/17 12:00 05/08/17 11:58 (Duoneb Neb) 1 ampule Q6HR NEB NEB 05/08/17 10:00 05/11/17 07:51 Metronidazole 100 ml @ 100 mls/hr Q8H IV 05/09/17 17:00 05/11/17 08:11 (Xanax) 0.125 mg Q8HR NG 05/09/17 16:30 05/10/17 12:38 (Lopressor) 50 mg Q12HR NG 05/10/17 21:00 05/11/17 08:11 (Tylenol 650 Mg/ 20 ml Liq) 650 mg Q4H PRN NG 05/10/17 12:00 05/10/17 12:08 Cefepime HCl 2000 mg/Sodium Chloride 100 ml @ 200 mls/hr Q12H IV 05/10/17 16:00 05/11/17 05:37 Linezolid 300 ml @ 300 mls/hr Q12H IV 05/10/17 14:00 05/11/17 03:09 Potassium Chloride/Dextrose/ Sod Cl 1,000 ml @ 125 mls/hr Q8H IV 05/11/17 10:00 05/11/17 09:46 Lines Line with no evidence of infection Past Medical History 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 Vital Signs Date Time Temp Pulse Resp B/P (MAP) Pulse Ox O2 Delivery O2 Flow Rate FiO2 05/11/17 07:53 96 Nasal Cannula 5.00 05/11/17 05:45 95 Nasal Cannula 6.00 05/11/17 04:00 97.8 92 25 123/56 (78) 98 05/11/17 03:46 95 50 05/11/17 00:00 98.7 92 25 123/56 (78) 98 05/10/17 23:55 95 50 05/10/17 23:01 98.4 98 20 182/67 (105) 98 05/10/17 20:30 95 50 05/10/17 20:00 97.5 90 31 81/45 (57) 95 86/62 (70) 05/10/17 16:00 99.0 89 38 121/68 (85) 95 05/10/17 14:46 93 50 05/10/17 13:15 100.7 97 35 122/74 (90) 92 05/10/17 12:38 101.9 99 144/69 (94) 92 05/10/17 12:00 101.2 98 22 163/72 (102) 92 . Laboratory Tests Test 05/10/17 07:11 05/11/17 05:34 White Blood Count 16.9 TH/MM3 15.0 TH/MM3 Red Blood Count 4.84 MIL/MM3 4.63 MIL/MM3 Hemoglobin 14.7 GM/DL 14.0 GM/DL Hematocrit 44.1 % 42.2 % Mean Corpuscular Volume 91.0 FL 91.1 FL Mean Corpuscular Hemoglobin 30.4 PG 30.2 PG Mean Corpuscular Hemoglobin Concent 33.4 % 33.2 % Red Cell Distribution Width 13.8 % 13.7 % Platelet Count 305 TH/MM3 300 TH/MM3 Mean Platelet Volume 8.5 FL 8.3 FL Neutrophils (%) (Auto) 84.1 % 78.5 % Lymphocytes (%) (Auto) 6.4 % 8.9 % Monocytes (%) (Auto) 9.3 % 12.3 % Eosinophils (%) (Auto) 0.0 % 0.2 % Basophils (%) (Auto) 0.2 % 0.1 % Neutrophils # (Auto) 14.2 TH/MM3 11.8 TH/MM3 Lymphocytes # (Auto) 1.1 TH/MM3 1.3 TH/MM3 Monocytes # (Auto) 1.6 TH/MM3 1.9 TH/MM3 Eosinophils # (Auto) 0.0 TH/MM3 0.0 TH/MM3 Basophils # (Auto) 0.0 TH/MM3 0.0 TH/MM3 CBC Comment DIFF FINAL DIFF FINAL Differential Comment Laboratory Tests Test 05/10/17 07:11 05/11/17 05:34 Blood Urea Nitrogen 20 MG/DL 33 MG/DL Creatinine 0.85 MG/DL 1.00 MG/DL Random Glucose 132 MG/DL 122 MG/DL Calcium Level 8.0 MG/DL 7.9 MG/DL Sodium Level 151 MEQ/L 153 MEQ/L Potassium Level 3.8 MEQ/L 3.5 MEQ/L Chloride Level 116 MEQ/L 117 MEQ/L Carbon Dioxide Level 27.9 MEQ/L 30.4 MEQ/L Anion Gap 7 MEQ/L 6 MEQ/L Estimat Glomerular Filtration Rate 85 ML/MIN 71 ML/MIN Microbiology Date/Time Source Procedure Growth Status 05/10/17 13:05 Blood Arterial Line Aerobic Blood Culture Pending Received 05/10/17 13:05 Blood Arterial Line Anaerobic Blood Culture Pending Received 05/10/17 13:03 Blood Arterial Line Aerobic Blood Culture Pending Received 05/10/17 13:03 Blood Arterial Line Anaerobic Blood Culture Pending Received 05/10/17 17:15 Urine Catheterized Urine Urine Culture Pending Received Imaging Last Impressions Chest X-Ray 05/10/17 0600 Signed Impressions: Service Date/Time: Wednesday, May 10, 2017 02:51 - CONCLUSION: Questionable infiltrate right lung base. NG tube in good position. Froylan Burt MD Abdomen X-Ray 05/08/17 0000 Signed Impressions: Service Date/Time: April 17:23 - CONCLUSION: NG tube in the stomach Ravi Estrella MD Modified Barium Swallow 05/07/17 0000 Signed Impressions: Service Date/Time: Sunday, May 07, 2017 09:44 - CONCLUSION: Aspiration into the upper airway. Gabe Luther MD Physical Exam GENERAL: More awake compared to yesterday, congested, did not follow commands, tachypneic, on nasal O2. SKIN: Warm and dry. No generalized rash, no ecchymoses and no evidence of embolic lesions. HEAD: Atraumatic. Normocephalic. No temporal wasting, or tenderness. Face flushed EYES: [place] conjunctiva. No petechia or hemorrhage. Pupils equal, round and reactive to light. No scleral icterus. No injection or drainage. EARS, NOSE AND THROAT: Nose without bleeding or purulent nasal discharge. Dry oral mucosa. NECK: Trachea midline. Supple and not tender, no meningeal signs CARDIOVASCULAR: Regular rate and rhythm. No murmurs, rubs or gallops heard RESPIRATORY: Bilateral rhonchi ABDOMEN: Soft, nondistended, bowel sounds present and normoactive, not tender. No guarding. No rebound. No organomegaly. No bladder distension noted EXTREMITIES: No clubbing, cyanosis, or edema. No calf tenderness. Well perfused and warm. NEUROLOGICAL: Lethargic PSYCHIATRIC: Unable to assess LINE: No evidence of infection : Has condom cath, urine looks clear Assessment & Plan Remarks IMPRESSION Sepsis due likely to aspiration PNA - has been in hospital setting 05/02 Aspiration PNA S/P drug OD, for intentional drug OD Encephalopathy RECOMMENDATION Follow C/S Continue Flagyl Continue cefepime and Zyvox to cover hospital-acquired pathogens Monitor temps Monitor progress Further recommendation to follow once workup is completed Check shari Das D/W Yesica Phillip MD May 11, 2017 09:58
--- NOTE | 2017-05-11 12:30 | EKG ---
Date Performed: 05/10/2017 Time Performed: 14:14:21 PTAGE: 86 years EKG: SINUS TACHYCARDIA RIGHT BUNDLE BRANCH BLOCK LEFT ANTERIOR FASCICULAR BLOCK Possible old ant erior infarction ABNORMAL ECG Since PREVIOUS TRACING , no significant change noted PREVIOUS TRACIN05/02/2017 08.21 DOCTOR: Dewayne Dowling Interpretating Date/Time 05/11/2017 12:28:15
[2017-05-11] MEDS: LORazepam 2 MG/ML VIAL IV PUSH PRN (14:39)
[2017-05-11] MEDS: ENOXAPARIN SODIUM 30 MG/0.3 ML SYRINGE SQ SCH (15:35)
[2017-05-12] VITALS (10 sets, daily range): BP systolic 89–121; BP diastolic 48–58; PULSE 25–86; RESP 23–27; TEMP 98.2–99.6; O2SAT 97–100
[2017-05-12] MEDS: metroNIDAZOLE 500 MG INJ 100 ML IV SCH ×2 (00:11→08:51)
[2017-05-12] MEDS: D5-1/4 NS + KCL 20 MEQ INJ 1,000 ML IV SCH ×2 (02:26→10:00)
[2017-05-12] MEDS: LINEZOLID 600 MG PREMIX 300 ML IV SCH ×2 (02:26→13:43)
[2017-05-12] MEDS: RESP: ALBUTEROL 2.5 MG/IPRATROPIUM 0.5 MG NEB (SCH) NEB ×2 (03:10→08:24)
[2017-05-12] MEDS: CEFEPIME INJ 2,000 MG in SODIUM CHLORIDE 0.9% INJ 100 ML IV SCH (03:18)
[2017-05-12] MEDS: ALPRAZolam 0.25 MG TAB NG SCH ×2 (05:32→13:43)
[2017-05-12 06:52] LABS: AUTOMATED NEUTROPHIL # 11.5 TH/MM3 (1.8-7.7); BASOPHIL % 0.1 % (0.0-2.0); EOSINOPHIL % 0.1 % (0.0-4.0); HEMATOCRIT 40.6 % (39.0-51.0); HEMOGLOBIN 13.1 GM/DL (13.0-17.0); LYMPH % 7.8 % (9.0-44.0); LYMPHOCYTE # 1.1 TH/MM3 (1.0-4.8); MEAN CELL VOLUME 92.2 FL (80.0-100.0); MEAN CORPUSCULAR HEMOGLOBIN 29.8 PG (27.0-34.0); MEAN CORPUSCULAR HGB CONC 32.3 % (32.0-36.0); MEAN PLATELET VOLUME 8.6 FL (7.0-11.0); MONOCYTE # 1.6 TH/MM3 (0-0.9); PLATELET COUNT 304 TH/MM3 (150-450); RED CELL DISTRIBUTION WIDTH 14.1 % (11.6-17.2); WHITE BLOOD COUNT 14.2 TH/MM3 (4.0-11.0)
[2017-05-12 07:17] LABS: BICARBONATE 28.7 MEQ/L (21.0-32.0); CALCIUM 7.6 MG/DL (8.5-10.1); CREATININE 1.67 MG/DL (0.60-1.30)
--- NOTE | 2017-05-12 08:31 | HHI.PR ---
Subjective Remarks Patient currently somnolent. Has been restless and agitated over the last 24 hours. Overnight, respiratory status deteriorated and he was placed back on BiPAP. Blood pressure heart rate were low last night. Metoprolol has been discontinued. Oxygen saturations are adequate with BiPAP and FiO2 of 50%. Urine output adequate. Tolerating enteral feeds. Current Medications Medications (Trade) Dose Ordered Sig/Horacio Route Start Time Stop Time Status Last Admin (NS Flush) 2 ml UNSCH PRN IV FLUSH 05/06/17 18:30 (NS Flush) 2 ml BID IV FLUSH 05/06/17 21:00 05/11/17 21:14 (Lovenox Inj) 30 mg Q24H SQ 05/06/17 19:00 05/11/17 15:35 (Narcan Inj) 0.4 mg UNSCH PRN IV PUSH 05/06/17 18:30 (Milk Of Magnesia Liq) 30 ml Q12H PRN PO 05/06/17 18:30 (Senokot) 17.2 mg Q12H PRN PO 05/06/17 18:30 (Ativan Inj) 0.5 mg Q6HR PRN IV PUSH 05/06/17 18:45 05/11/17 14:39 (Protonix) 40 mg DAILY PO 05/07/17 09:00 05/11/17 08:11 (Vasotec Inj) 1.25 mg Q6H PRN IV PUSH 05/07/17 12:00 05/08/17 11:58 (Duoneb Neb) 1 ampule Q6HR NEB NEB 05/08/17 10:00 05/12/17 08:24 Metronidazole 100 ml @ 100 mls/hr Q8H IV 05/09/17 17:00 05/12/17 00:11 (Xanax) 0.125 mg Q8HR NG 05/09/17 16:30 05/12/17 05:32 (Tylenol 650 Mg/ 20 ml Liq) 650 mg Q4H PRN NG 05/10/17 12:00 05/10/17 12:08 Cefepime HCl 2000 mg/Sodium Chloride 100 ml @ 200 mls/hr Q12H IV 05/10/17 16:00 05/12/17 03:18 Linezolid 300 ml @ 300 mls/hr Q12H IV 05/10/17 14:00 05/12/17 02:26 Potassium Chloride/Dextrose/ Sod Cl 1,000 ml @ 125 mls/hr Q8H IV 05/11/17 10:00 05/12/17 02:26 Objective Vital Signs Date Time Temp Pulse Resp B/P (MAP) Pulse Ox O2 Delivery O2 Flow Rate FiO2 05/12/17 04:00 99.0 84 24 101/50 (67) 100 05/12/17 03:37 99 50 05/12/17 01:00 77 27 89/48 (62) 100 05/12/17 00:48 98 50 05/12/17 00:00 98.2 25 26 94/52 (66) 98 05/12/17 00:00 41 05/11/17 22:00 66 05/11/17 20:50 99 50 05/11/17 20:00 98 Nasal Cannula 6.00 05/11/17 20:00 98.4 106 32 134/60 (84) 98 05/11/17 20:00 106 05/11/17 16:00 99.0 105 24 139/65 (89) 100 05/11/17 16:00 105 05/11/17 14:00 82 05/11/17 12:00 82 05/11/17 12:00 99.2 82 24 127/62 (83) 100 05/11/17 10:00 71 I/O 05/11/17 05/11/17 05/11/17 05/12/17 05/12/17 05/12/17 07:00 15:00 23:00 07:00 15:00 23:00 Intake Total 500 ml 2577 ml 1332 ml Output Total 650 ml 500 ml Balance -150 ml 2577 ml 832 ml IV Total 500 ml 1500 ml Tube Feeding 327 ml 582 ml Other 750 ml 750 ml Output Urine Total 650 ml 500 ml # Voids 4 # Bowel Movements 0 0 Cardiovascular: Regular rate and rhythm Lungs: Diminished air exchange bilaterally without wheezes, rhonchi or rales Abdomen: Soft, nontender, nondistended with bowel sounds present Extremities: No edema Result Diagram: 05/12/17 0548 05/12/17 0548 Other Results Blood culture and urine culture pending Assessment and Plan Problem List: (1) Aspiration pneumonitis ICD Codes: J69.0 - Pneumonitis due to inhalation of food and vomit Status: Acute Plan: Patient is currently on BiPAP. White blood count slightly lower today. Continue with IV antibiotics. Continue with nebulizer treatments. (2) Hypernatremia ICD Codes: E87.0 - Hyperosmolality and hypernatremia Status: Acute Plan: Improving. Will follow (3) Dysphagia ICD Codes: R13.10 - Dysphagia, unspecified Status: Resolved Plan: Continue NG feeds. Speech therapy will work with patient when he is cognitively able. (4) Major depressive disorder, single episode, severe without psychotic features ICD Codes: F32.2 - Major depressive disorder, single episode, severe without psychotic features Status: Acute Plan: Patient is currently confused which is likely due to acute delirium. Once medically stable, will consult psychiatry for assistance with further treatment of the depression and suicide attempt. (5) Hypertension ICD Codes: I10 - Essential (primary) hypertension Status: Acute Plan: Blood pressure and heart rate were low. Metoprolol discontinued. Will follow (6) Acute delirium ICD Codes: R41.0 - Disorientation, unspecified Status: Acute Plan: Patient confused and agitated. Receiving alprazolam and when necessary Ativan IV. (7) GERD (gastroesophageal reflux disease) ICD Codes: K21.9 - Gastro-esophageal reflux disease without esophagitis Plan: Continue PPI (8) Hypokalemia ICD Codes: E87.6 - Hypokalemia Status: Resolved Plan: Corrected. Follow potassium level (9) BPH loc w urin obs/LUTS ICD Codes: N40.1 - Benign prostatic hyperplasia with lower urinary tract symptoms Status: Chronic Plan: Patient normally takes an alpha concepcion, however, these cannot be crushed so will hold until he can swallow a pill. (10) At high risk for deep venous thrombosis ICD Codes: Z91.89 - Other specified personal risk factors, not elsewhere classified Status: Acute Plan: Continue Lovenox (11) Acute kidney injury ICD Codes: N17.9 - Acute kidney failure, unspecified Status: Acute Plan: BUN/creatinine creatinine are higher today. Will follow. Assessment and Plan With his advanced age, comorbidities, pneumonia with respiratory failure and now acute kidney injury, prognosis is poor. Will discuss further with patient' s whether she wishes to continue with aggressive treatment or consider palliative care with hospice referral. Problem Qualifiers (1) Dysphagia: Qualified Codes: R13.12 - Dysphagia, oropharyngeal phase (2) Hypertension: Qualified Codes: I10 - Essential (primary) hypertension (3) GERD (gastroesophageal reflux disease): Qualified Codes: K21.9 - Gastro-esophageal reflux disease without esophagitis Nabil Forte MD May 12, 2017 08:31
[2017-05-12] MEDS: PANTOPRAZOLE SOD 40 MG DELAYED RELEASE TAB PO SCH (08:52)
[2017-05-12] MEDS: SODIUM CHLORIDE 0.9% FLUSH 10 ML FLUSH IV FLUSH SCH (08:52)
--- NOTE | 2017-05-12 09:35 | HHI.IDPN ---
Subjective Subjective Remarks Patient is an 86-year-old male, initially admitted May 02 with an intentional drug overdose using Percocet, Lortab and benzodiazepine. He was initially in the ICU and treated aggressively, and he was discharged to the psychiatric unit May 03. During that admission he had an infiltrate in his left base. He was on Bactrim when he went to the psych unit. Patient's mental status has been lethargy as well as confusion. He was evaluated by speech therapy, and they recommended nothing by mouth because of aspiration problem. His by mouth intake has been poor. His sodium has been elevated. He was transferred to the medical floor for further management of his problems. Patient continues to be on nothing by mouth, and has an NG tube for tube feedings. Yesterday and today he started having fevers. Patient has been on Rocephin and Zithromax since May 06. He has no central line. He has a condom catheter in place. There's been no documentation of any fever. His white count has been elevated. His chest x-ray now is showing again the infiltrates in the right base which is no, and the left base. Infectious disease consultation has been requested to evaluate the patient. I discuss this with the nurse. Patient apparently was very agitated earlier and received Xanax. He is currently quite lethargic. A respiratory rate has been up and that was what he was doing today. He is on nasal O2, saturation has been in the 92. Notes reviewed D/W RN Lethargic most of night and this morning Has not been medicated On BIPAP Moaning when stimulated Has low grade temps C/S sputum pending WBC lower Creatinine rising Antibiotics Zyvox Cefepime Flagyl Current Medications Medications (Trade) Dose Ordered Sig/Horacio Route Start Time Stop Time Status Last Admin (NS Flush) 2 ml UNSCH PRN IV FLUSH 05/06/17 18:30 (NS Flush) 2 ml BID IV FLUSH 05/06/17 21:00 05/12/17 08:52 (Lovenox Inj) 30 mg Q24H SQ 05/06/17 19:00 05/11/17 15:35 (Narcan Inj) 0.4 mg UNSCH PRN IV PUSH 05/06/17 18:30 (Milk Of Magnesia Liq) 30 ml Q12H PRN PO 05/06/17 18:30 (Senokot) 17.2 mg Q12H PRN PO 05/06/17 18:30 (Ativan Inj) 0.5 mg Q6HR PRN IV PUSH 05/06/17 18:45 05/11/17 14:39 (Protonix) 40 mg DAILY PO 05/07/17 09:00 05/11/17 08:11 (Vasotec Inj) 1.25 mg Q6H PRN IV PUSH 05/07/17 12:00 05/08/17 11:58 (Duoneb Neb) 1 ampule Q6HR NEB NEB 05/08/17 10:00 05/12/17 08:24 Metronidazole 100 ml @ 100 mls/hr Q8H IV 05/09/17 17:00 05/12/17 08:51 (Xanax) 0.125 mg Q8HR NG 05/09/17 16:30 05/12/17 05:32 (Tylenol 650 Mg/ 20 ml Liq) 650 mg Q4H PRN NG 05/10/17 12:00 05/10/17 12:08 Cefepime HCl 2000 mg/Sodium Chloride 100 ml @ 200 mls/hr Q12H IV 05/10/17 16:00 05/12/17 03:18 Linezolid 300 ml @ 300 mls/hr Q12H IV 05/10/17 14:00 05/12/17 02:26 Potassium Chloride/Dextrose/ Sod Cl 1,000 ml @ 125 mls/hr Q8H IV 05/11/17 10:00 05/12/17 02:26 Lines Line with no evidence of infection Past Medical History 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 Vital Signs Date Time Temp Pulse Resp B/P (MAP) Pulse Ox O2 Delivery O2 Flow Rate FiO2 05/12/17 08:24 98 50 4/2/18 08:24 98 BiPAP 50 05/12/17 08:00 86 05/12/17 08:00 99.6 86 23 109/58 (75) 97 05/12/17 04:00 99.0 84 24 101/50 (67) 100 05/12/17 03:37 99 50 05/12/17 01:00 77 27 89/48 (62) 100 05/12/17 00:48 98 50 05/12/17 00:00 98.2 25 26 94/52 (66) 98 05/12/17 00:00 41 05/11/17 22:00 66 05/11/17 20:50 99 50 05/11/17 20:00 98 Nasal Cannula 6.00 05/11/17 20:00 98.4 106 32 134/60 (84) 98 05/11/17 20:00 106 05/11/17 16:00 99.0 105 24 139/65 (89) 100 05/11/17 16:00 105 05/11/17 14:00 82 05/11/17 12:00 82 05/11/17 12:00 99.2 82 24 127/62 (83) 100 05/11/17 10:00 71 . Laboratory Tests Test 05/11/17 05:34 05/12/17 05:48 White Blood Count 15.0 TH/MM3 14.2 TH/MM3 Red Blood Count 4.63 MIL/MM3 4.40 MIL/MM3 Hemoglobin 14.0 GM/DL 13.1 GM/DL Hematocrit 42.2 % 40.6 % Mean Corpuscular Volume 91.1 FL 92.2 FL Mean Corpuscular Hemoglobin 30.2 PG 29.8 PG Mean Corpuscular Hemoglobin Concent 33.2 % 32.3 % Red Cell Distribution Width 13.7 % 14.1 % Platelet Count 300 TH/MM3 304 TH/MM3 Mean Platelet Volume 8.3 FL 8.6 FL Neutrophils (%) (Auto) 78.5 % 81.0 % Lymphocytes (%) (Auto) 8.9 % 7.8 % Monocytes (%) (Auto) 12.3 % 11.0 % Eosinophils (%) (Auto) 0.2 % 0.1 % Basophils (%) (Auto) 0.1 % 0.1 % Neutrophils # (Auto) 11.8 TH/MM3 11.5 TH/MM3 Lymphocytes # (Auto) 1.3 TH/MM3 1.1 TH/MM3 Monocytes # (Auto) 1.9 TH/MM3 1.6 TH/MM3 Eosinophils # (Auto) 0.0 TH/MM3 0.0 TH/MM3 Basophils # (Auto) 0.0 TH/MM3 0.0 TH/MM3 CBC Comment DIFF FINAL DIFF FINAL Differential Comment Laboratory Tests Test 05/11/17 05:34 05/12/17 05:48 Blood Urea Nitrogen 33 MG/DL 41 MG/DL Creatinine 1.00 MG/DL 1.67 MG/DL Random Glucose 122 MG/DL 130 MG/DL Calcium Level 7.9 MG/DL 7.6 MG/DL Sodium Level 153 MEQ/L 149 MEQ/L Potassium Level 3.5 MEQ/L 4.4 MEQ/L Chloride Level 117 MEQ/L 114 MEQ/L Carbon Dioxide Level 30.4 MEQ/L 28.7 MEQ/L Anion Gap 6 MEQ/L 6 MEQ/L Estimat Glomerular Filtration Rate 71 ML/MIN 39 ML/MIN Microbiology Date/Time Source Procedure Growth Status 05/10/17 13:05 Blood Arterial Line Aerobic Blood Culture - Preliminary NO GROWTH IN 1 DAY Resulted 05/10/17 13:05 Blood Arterial Line Anaerobic Blood Culture - Preliminary NO GROWTH IN 1 DAY Resulted 05/10/17 13:03 Blood Arterial Line Aerobic Blood Culture - Preliminary NO GROWTH IN 1 DAY Resulted 05/10/17 13:03 Blood Arterial Line Anaerobic Blood Culture - Preliminary NO GROWTH IN 1 DAY Resulted 05/11/17 11:00 Sputum Nasal Tracheal Aspirate Gram Stain Pending Received 05/11/17 11:00 Sputum Nasal Tracheal Aspirate Sputum Culture Pending Received 05/11/17 15:34 Urine Other Legionella Antigen Pending Received 05/10/17 17:15 Urine Catheterized Urine Urine Culture - Preliminary NO GROWTH IN 24 HOURS. Resulted Imaging Last Impressions Chest X-Ray 05/10/17 0600 Signed Impressions: Service Date/Time: Wednesday, May 10, 2017 02:51 - CONCLUSION: Questionable infiltrate right lung base. NG tube in good position. Froylan Burt MD Abdomen X-Ray 05/08/17 0000 Signed Impressions: Service Date/Time: April 17:23 - CONCLUSION: NG tube in the stomach Ravi Estrella MD Modified Barium Swallow 05/07/17 0000 Signed Impressions: Service Date/Time: Sunday, May 07, 2017 09:44 - CONCLUSION: Aspiration into the upper airway. Gabe Luther MD Physical Exam GENERAL: Very lethargic, on BIPAP, tachypneic SKIN: Warm and dry. No generalized rash, no ecchymoses and no evidence of embolic lesions. HEAD: Atraumatic. Normocephalic. No temporal wasting, or tenderness. Face flushed EYES: Juarez conjunctiva. No petechia or hemorrhage. Pupils equal, round and reactive to light. No scleral icterus. No injection or drainage. EARS, NOSE AND THROAT: Nose without bleeding or purulent nasal discharge. Dry oral mucosa. NECK: Trachea midline. Supple and not tender, no meningeal signs CARDIOVASCULAR: Regular rate and rhythm. No murmurs, rubs or gallops heard RESPIRATORY: Bilateral rhonchi ABDOMEN: Soft, nondistended, bowel sounds present and normoactive, not tender. No guarding. No rebound. No organomegaly. No bladder distension noted EXTREMITIES: No clubbing, cyanosis, or edema. No calf tenderness. Well perfused and warm. NEUROLOGICAL: Lethargic PSYCHIATRIC: Unable to assess LINE: No evidence of infection : Has condom cath, urine looks clear Assessment & Plan Remarks IMPRESSION Sepsis due to aspiration PNA - has been in hospital setting 05/02 Aspiration PNA Respiratory failure Renal insufficiency S/P drug OD, for intentional drug OD Encephalopathy due most likelyto hypoxia and sepsis RECOMMENDATION Follow C/S Continue Flagyl Continue cefepime and Zyvox to cover hospital-acquired pathogens Monitor temps Monitor progress Patient has DNR status Consider getting palliative medicine, ?hospice D/W RN I will be off 05/13-05/18 Dr Florina Rai covering in my absence Yesica Romero MD May 12, 2017 09:35
== END 2017-05-12 15:45 | disposition hospice, inpatient (51) | DRG 871 ==
LOC: N07B 17:58 → HIMN 05-10 23:00
PROVIDERS: ADMIT Family Medicine; ATTEND Family Medicine
PROC: 5A09457 Assistance with Respiratory Ventilation, 24-96 Consecutive Hours, Continuous Positive Airway Pressure (ICD-10-PCS; principal; 2017-05-10)
DX: A41.9 Sepsis, unspecified organism (principal); J69.0 Pneumonitis due to inhalation of food and vomit; J96.91 Respiratory failure, unspecified with hypoxia; G93.40 Encephalopathy, unspecified; N17.9 Acute kidney failure, unspecified; K57.91 Diverticulosis of intestine, part unspecified, without perforation or abscess with bleeding; F32.2 Major depressive disorder, single episode, severe without psychotic features; E87.0 Hyperosmolality and hypernatremia; N13.8 Other obstructive and reflux uropathy; R13.10 Dysphagia, unspecified; M35.3 Polymyalgia rheumatica; E80.4 Gilbert syndrome; K21.9 Gastro-esophageal reflux disease without esophagitis; N40.1 Benign prostatic hyperplasia with lower urinary tract symptoms; K22.4 Dyskinesia of esophagus; I10 Essential (primary) hypertension; R41.0 Disorientation, unspecified; E87.6 Hypokalemia; G47.30 Sleep apnea, unspecified; F41.9 Anxiety disorder, unspecified; M19.90 Unspecified osteoarthritis, unspecified site; Z96.652 Presence of left artificial knee joint; Z91.5 Personal history of self-harm; T50.902D Poisoning by unspecified drugs, medicaments and biological substances, intentional self-harm, subsequent encounter; Z66 Do not resuscitate
CPT/HCPCS: 36600; 71045; 74018; 74230; 80048; 80053; 81001; 82805; 82948; 85025; 87040; 87070; 87086; 87205; 87449; 87641; 93005; 94002; 94003; 94640; 94664; J0456; J0692; J0696; J1650; J1940; J2020; J2060; J2270; J3480; J7050; J7608